=== PATIENT | female | born 1960 | race Caucasian/White ===

== ENCOUNTER 2020-01-24 11:41 | Emergency (ER) | payer OTHER, SELFPAY ==
--- NOTE | ~2020-01-24 | CT_ITS ---
EXAMINATION: CT abdomen pelvis wo con DATE: 01/24/2020 13:13 INDICATION: Right flank pain. Frequent urinary tract infections. TECHNIQUE: Computed tomography (CT) of the abdomen and pelvis was performed without intravenous contr ast. Automated exposure control and iterative reconstruction technique were employed. Exam dose: 165 .01 mGy-cm total exam DLP. COMPARISON: None. FINDINGS: There is an approximately 3 mm probable distal right ureteral calculus. There is minimal if any left or right hydroureteronephrosis. No other urinary tract calculus is evident. The urinary seven dder is unremarkable. The liver, bile ducts, gallbladder, pancreas, pancreatic duct, spleen, and adrenal glands and kidneys are otherwise unremarkable on this limited noncontrast examination. Normal caliber of the abdominal aorta. No intraperitoneal or retroperitoneal or pelvic mass lesion or adenopathy or ascites. Normal appendix. There is a prominent of fecal material within the colon but no bowel obstruction. There are numerous diverticula of the sigmoid colon. There is minimal pericolic fat stranding in the mid sigmoid colon a erick; minimal focal diverticulitis of the sigmoid colon in the mid pelvic area is not excluded. No int raperitoneal free air or abscess. Bilateral breast implants are noted. Normal heart size. No pericardial or pleural effusion. The lung bases are clear of infiltrate or cons olidation. Severe degenerative disc disease at L5-S1 with mild retrolisthesis. No suspicious osteolytic or osteoblastic lesions are noted. IMPRESSION: Suspected 3 mm distal right ureteral calculus Possible mild mid sigmoid diverticulitis Normal appendix Reviewed, dictated and finalized at [facility]. Reviewed, dictated and finalized at [facility].
--- NOTE | ~2020-01-24 | XR_ITS ---
XR abdomen/kub 1V DATE: 01/24/2020 13:19 INDICATION: Right flank pain. Frequent urinary tract infections. TECHNIQUE: AP projection, 2 views, COMPARISON: 01/24/[address] abdomen pelvis FINDINGS: There are multiple bilateral pelvic calcifications, most of which are calcified pelvic phle boliths. Cannot exclude a small distal right ureteral calcified calculus versus phlebolith. Consider intravenous contrast material injection with follow-up KUB examinations for differentiation, should m ore definitive evaluation be required clinically. No evidence of bowel obstruction. The psoas shadows are intact. No visceromegaly. The lung bases are clear. IMPRESSION: Bilateral pelvic calcifications; distal right ureteral calcified stone versus phlebolith. Consider administration of IV contrast material with exposure of subsequent plain radiographs and if necessary repeat CT abdomen pelvis examination as clinically required Reviewed, dictated and finalized at [facility]. Reviewed, dictated and finalized at [facility]. IMPRESSION: Bilateral pelvic calcifications; distal right ureteral calcified st one versus phlebolith. Consider administration of IV contrast material with exposure of subsequent ovidio in radiographs and if necessary repeat CT abdomen pelvis examination as clinica lly required
--- NOTE | ~2020-01-24 | XR_ITS ---
XR abdomen w oblique DATE: 01/24/2020 14:23 INDICATION: Right flank pain. Frequent urinary tract infections. TECHNIQUE: AP and bilateral oblique views of the abdomen following intravenous injection of contrast material for CT abdomen pelvis examination COMPARISON: 01/24/[address] abdomen pelvis examinations 01/24/2020 KUB FINDINGS: No urinary tract calculus or hydroureteronephrosis is evident. There are multiple bilateral calcified pelvic phleboliths. No abnormal filling defect of the renal collecting systems, ureters or urinary bladder is evident. IMPRESSION: No urinary tract calculus or hydroureteronephrosis Reviewed, dictated and finalized at [facility]. Reviewed, dictated and finalized at [facility].
--- NOTE | ~2020-01-24 | CT_ITS ---
EXAMINATION: CT abdomen pelvis w con DATE: 01/24/2020 14:21 INDICATION: Frequent urinary tract infections. Right flank pain. TECHNIQUE: Computed tomography (CT) of the abdomen and pelvis was performed with 100 cc Omnipaque 350 intravenous contrast. Automated exposure control and iterative reconstruction technique were employe d. Exam dose: 185.61 mGy-cm total exam DLP. COMPARISON: 01/24/[address] abdomen pelvis 01/24/2020 KUB FINDINGS: The previously reported small calcification in the right pelvis lies outside the ureter and urinary bladder, consistent with calcified phlebolith. No urinary tract stones or urinary tract obst ruction or hydroureteronephrosis. There is mild pericolic fat stranding in the mid sigmoid area suggesting mild uncomplicated diverticu litis. IMPRESSION: Mid sigmoid mild diverticulitis, without evidence of abscess or intraperitoneal free air No urinary tract calculus or hydroureteronephrosis Reviewed, dictated and finalized at [facility]. Reviewed, dictated and finalized at [facility]. IMPRESSION: Mid sigmoid mild diverticulitis, without evidence of abscess or in traperitoneal free air No urinary tract calculus or hydroureteronephrosis
[2020-01-24 11:44] VITALS: BP 128/62; PULSE 85; RESP 16; TEMP 36.8; O2SAT 100
[2020-01-24 12:27] LABS: Basophils Percent Auto 0.4 % (0.2-1.2); Eosinophils Absolute Auto 0.1 K/mm3 (0-0.3); Eosinophils Percent Auto 1.3 % (0-4.4); Hematocrit 44.3 % (37.0-47.0); Hemoglobin 14.7 g/dL (12.0-15.0); Immature Granulocyte Absolute 0.02 K/mm3 (0.00-0.031); Immature Granulocyte Percent A 0.2 % (0-0.5); Lymphocytes Absolute Auto 3.55 K/mm3 (0.9-3.2); Lymphocytes Percent Auto 34.7 % (18.3-44.2); Mean Corpuscular HGB Conc 33.2 g/dl (32-36); Mean Corpuscular Hemoglobin 30.6 pg (26-34); Mean Corpuscular Volume 92.3 fl (80-100); Mean Platelet Volume 11.2 fl (7.4-10.4); Monocytes Percent Auto 9.3 % (2.6-8.5); Neutrophils Absolute Auto 5.6 K/mm3 (1.3-6.7); Neutrophils Percent Auto 54.1 % (45.5-73.1); Platelet Count Result 277 k/mm3 (150-375); Red Cell Distribution Width 12.4 % (11.5-14.5); White Blood Count 10.2 K/mm3 (4.5-10.0)
[2020-01-24 12:33] LABS: Add Urine Microscopic? YES; Appearance Urine Cloudy (Clear); Bacteria Urine Trace /hpf; Bilirubin Urine Negative (Negative); Blood Urine 2+ (Negative); Color Urine Yellow (Yellow); Glucose Urine UA Negative (Negative); Ketones Urine 1+ mg/dL (Negative); Leukocyte Esterase Ur Negative LEU/UL (Negative); Mucus Urine Moderate /lpf; Nitrate Urine Negative (Negative); Protein Urine 1+ mg/dL (Negative); RBC Urine 21-50 /hpf (0-2); Specific Grav Ur 1.033 (1.001-1.035); Squamous Epithelial Cell Urine Many /hpf (Few); WBC Urine 0-3 /hpf
[2020-01-24] MEDS: SODIUM CHLORIDE 0.9% IV 1,000 ML 999 ML IV CONT ×2 (12:33→14:44)
--- NOTE | 2020-01-24 12:37 | ED.ABDPAIN ---
HPI - Abdominal Pain General Chief Complaint: Urogenital-Female Stated Complaint: frequent recurring UTIs Time Seen by Provider: 01/24/20 11:50 Source: patient Mode of arrival: ambulatory Limitations: no limitations History of Present Illness HPI narrative: Patient is a 59-year-old female that presents with low back pain and burning with urination has had this recurrent problem for the last month seen gynecology took nitrofurantoin had interval improvement but symptoms have returned over the last several days. Patient denies vaginal bleeding discharge issues with bowel movements or any fever chills nausea vomiting. Presents per private vehicle in no distress. Pain is worse with activity and movement Related Data Home Medications Medication Instructions Recorded Confirmed No Home Medications 01/24/20 01/24/20 Allergies Allergy/AdvReac Type Severity Reaction Status Date / Time meperidine [From Demerol] Allergy Swelling Verified 01/24/20 12:05 Review of Systems Review of Systems: All systems reviewed & are unremarkable except as noted in HPI and below PMFSH Social History Social History Smoking status: Current every day smoker Gender identity (if verbalized by the patient): Female Exam Narrative: Exam Narrative: GENERAL: Well-appearing, well-nourished, and in no acute distress. HEAD: Normocephalic, atraumatic. EYES: PERRLA and EOMI. ENT: Nares clear, no rhinorrhea or epistaxis. Mucous membranes moist. CHEST: Clear to auscultation. No respiratory distress. No wheezes rales or rhonchi HEART: Regular rate and rhythm. No murmur heard. Normal peripheral pulses. ABDOMEN: Soft, nontender, nondistended EXTREMITIES: Normal range of motion. No edema. SKIN: Warm, dry, no rash. NEURO: No focal deficits. Alert and oriented x3. PSYCH: Normal mood and affect. Course Course Emergency Course: Patient in the room in no distress aware of case findings treatment plan diagnosis results of the imaging patient resting comfortably at this time in no distress patient provided with reasons to return. Discussion was made with radiologist given the findings and recommended that the patient have imaging with contrast was done found to have diverticulitis Vital Signs Vital signs: Vital Signs Temperature 98.3 F 01/24/20 11:44 Pulse Rate 85 01/24/20 11:44 Respiratory Rate 16 01/24/20 11:44 Blood Pressure 128/62 01/24/20 11:44 Pulse Oximetry 100 01/24/20 11:44 Temperature 98.3 F 01/24/20 11:44 Pulse Rate 85 01/24/20 11:44 Respiratory Rate 16 01/24/20 11:44 Blood Pressure 128/62 01/24/20 11:44 Pulse Oximetry 100 01/24/20 11:44 MDM - Abdominal Pain MDM Narrative Medical decision making narrative: Patient found to have diverticulitis in the room afebrile nontoxic-appearing no distress felt appropriate for outpatient reevaluation and agreeing to follow-up as directed with GI and primary care. Patient without high risk changes in the blood work or imaging otherwise and agreeing to return if symptoms worsen Lab Data Result diagrams: 01/24/20 12:21 01/24/20 12:21 Labs: Lab Results 01/24/20 01/24/20 01/24/20 Range/Units 12:21 12:21 12:22 WBC 10.2 H (4.5-10.0) K/mm3 RBC 4.80 (4.2-5.4) M/mm3 Hgb 14.7 (12.0-15.0) g/dL Hct 44.3 (37.0-47.0) % MCV 92.3 (80-100) fl MCH 30.6 (26-34) pg MCHC 33.2 (32-36) g/dl RDW 12.4 (11.5-14.5) % Plt Count 277 (150-375) k/mm3 MPV 11.2 H (7.4-10.4) fl Immature Gran % (Auto) 0.2 (0-0.5) % Neut % (Auto) 54.1 (45.5-73.1) % Lymph % (Auto) 34.7 (18.3-44.2) % Hendricks % (Auto) 9.3 H (2.6-8.5) % Eos % (Auto) 1.3 (0-4.4) % Baso % (Auto) 0.4 (0.2-1.2) % Lymph # (Auto) 3.55 H (0.9-3.2) K/mm3 Hendricks # (Auto) 1.0 H (0.1-0.6) K/mm3 Eos # (Auto) 0.1 (0-0.3) K/mm3 Baso # (Auto) 0.0 (0.0-0.1) K/mm3
--- NOTE | 2020-01-24 13:40 | PC.NURSE ---
Green top being redrawn for hemolization per request of lab.
[2020-01-24 13:49] VITALS: BP 125/79; PULSE 76; RESP 16
[2020-01-24 13:56] LABS: Alanine Aminotransferase 14 U/L (4-35); Albumin Level 4.1 g/dL (3.5-5.1); Alkaline Phosphatase 72 U/L (38-126); Aspartate Amino Transferase 22 U/L (14-36); Bilirubin,Total 0.4 mg/dL (0.2-1.3); Blood Urea Nitrogen 13 mg/dL (7-17); Calcium 8.9 mg/dL (8.4-10.2); Carbon Dioxide 23 mmol/L (22-30); Chloride 109 mmol/L (98-107); Estimated CRCL calculation 71 ml/min; Estimated Glomerular Filt Rate > 60; Glucose 75 mg/dL (65-105); Potassium 3.7 mmol/L (3.4-5.0); Sodium 138 mmol/L (137-145)
[2020-01-24 14:04] LABS: Estimated CRCL calculation 83 ml/min; Estimated Glomerular Filt Rate > 60
[2020-01-24 14:40] VITALS: BP 137/74; PULSE 77; RESP 16; O2SAT 100
[2020-01-24 15:25] VITALS: BP 144/94; PULSE 74; RESP 18; O2SAT 100
== END 2020-01-24 15:32 | disposition home or self-care (01) ==
PROVIDERS: Emergency Medicine Emergency Medical Services; Emergency Provider Emergency Medicine; PCP Advanced Practice Midwife
DX: K57.32 Diverticulitis of large intestine without perforation or abscess without bleeding (principal); F17.200 Nicotine dependence, unspecified, uncomplicated
CPT/HCPCS: 36415; 74018; 74021; 74176; 74177; 74178; 80053; 81001; 85025; 96361; 96365; 99284; J0131; J7030; Q9967

== ENCOUNTER 2020-02-06 14:51 | Observation (INO) | payer OTHER, SELFPAY ==
--- NOTE | ~2020-02-06 | CT_ITS ---
EXAMINATION: CT abdomen pelvis w con EXAM DATE: 02/06/2020 16:42 INDICATION: Low abdominal pain, recent history of diverticulitis. TECHNIQUE: Spiral CT of the abdomen and pelvis was performed following intravenous injection of 100 m L Omnipaque 350. Axial, coronal and sagittal images were reviewed. The dose-length product (DLP) fo r this examination was 198.59 mGy-cm. The exposure was tailored according to patient size (auto mA e xposure control), and iterative reconstruction (ASIR) was used as additional dose reduction technique . Comparison is made to prior examination from 01/24/2020. FINDINGS: There is occlusive thrombus within the portal vein left lateral segment with geographic sha ped decreased attenuation involving most of this segment indicating less perfusion. There is nonocclu sive filling defect within a segmental branch of the right portal vein with similar decreased enhance ment, perfusion of this segment. See axial images 44, 34. No other filling defects within the portal venous system. There is descending colonic wall edema. Given the portal venous findings, would consider both ischemi c and infectious etiologies, but no thrombus identified in vessels supplying this segment. Pancreas, spleen, adrenal glands are unremarkable. There is no pneumatosis. Gallbladder is unremarka ble. No biliary obstruction. Kidneys enhance symmetrically. There is no hydronephrosis. The uter us is not identified and has likely been surgically resected. The bladder is unremarkable. There is no retroperitoneal or pelvic lymphadenopathy. The appendix is normal. The stomach and small bowel are unremarkable. There is moderate sigmoid colo leroy diverticulosis. There is no adjacent inflammatory change to suggest diverticulitis. No free int raperitoneal gas. The heart is normal in size. There are no pericardial or pleural effusions. The lung bases are unremarkable. There are no osteoblastic or osteolytic lesions identified. There is s ubacute or chronic mild compression fracture of the L5 vertebral body. Compared to prior study, colitis and segmental portal venous thrombosis are new. Previously seen sigm oid diverticulitis has resolved. IMPRESSION: 1. Descending colonic colitis, consider infectious and ischemic etiologies. 2. Two regions of segmental portal venous thrombosis. Reviewed, dictated and finalized at [facility].
[2020-02-06 14:53] VITALS: BP 100/80; PULSE 61; RESP 18; TEMP 36.2; O2SAT 100
[2020-02-06 15:43] LABS: Basophils Percent Auto 0.3 % (0.2-1.2); Eosinophils Absolute Auto 0.2 K/mm3 (0-0.3); Eosinophils Percent Auto 1.4 % (0-4.4); Hematocrit 40.6 % (37.0-47.0); Hemoglobin 13.7 g/dL (12.0-15.0); Immature Granulocyte Absolute 0.03 K/mm3 (0.00-0.031); Immature Granulocyte Percent A 0.2 % (0-0.5); Lymphocytes Absolute Auto 4.04 K/mm3 (0.9-3.2); Lymphocytes Percent Auto 32.7 % (18.3-44.2); Mean Corpuscular HGB Conc 33.7 g/dl (32-36); Mean Corpuscular Volume 91.9 fl (80-100); Mean Platelet Volume 10.3 fl (7.4-10.4); Monocytes Absolute Auto 0.9 K/mm3 (0.1-0.6); Monocytes Percent Auto 7.4 % (2.6-8.5); Neutrophils Absolute Auto 7.2 K/mm3 (1.3-6.7); Platelet Count Result 285 k/mm3 (150-375); Red Blood Count 4.42 M/mm3 (4.2-5.4); Red Cell Distribution Width 12.5 % (11.5-14.5); White Blood Count 12.4 K/mm3 (4.5-10.0)
[2020-02-06 15:46] LABS: Add Urine Microscopic? YES; Appearance Urine Clear (Clear); Bacteria Urine Trace /hpf; Bilirubin Urine Negative (Negative); Blood Urine 1+ (Negative); Color Urine Yellow (Yellow); Glucose Urine UA Negative (Negative); Ketones Urine Trace mg/dL (Negative); Leukocyte Esterase Ur 1+ LEU/UL (Negative); Mucus Urine Rare /lpf; Nitrate Urine Negative (Negative); Protein Urine 2+ mg/dL (Negative); Specific Grav Ur 1.027 (1.001-1.035); Squamous Epithelial Cell Urine Moderate /hpf (Few); WBC Urine 16-20 /hpf
[2020-02-06 15:56] LABS: Alanine Aminotransferase 18 U/L (4-35); Albumin Level 4.3 g/dL (3.5-5.1); Alkaline Phosphatase 67 U/L (38-126); Aspartate Amino Transferase 25 U/L (14-36); Bilirubin,Total 0.3 mg/dL (0.2-1.3); Blood Urea Nitrogen 18 mg/dL (7-17); Calcium 9.7 mg/dL (8.4-10.2); Carbon Dioxide 26 mmol/L (22-30); Chloride 106 mmol/L (98-107); Estimated CRCL calculation 60 ml/min; Estimated Glomerular Filt Rate > 60; Glucose 121 mg/dL (65-105); Lipase 111 U/L (23-300); Potassium 3.7 mmol/L (3.4-5.0); Sodium 137 mmol/L (137-145)
--- NOTE | 2020-02-06 16:09 | ED.ABDPAIN ---
HPI - Abdominal Pain General Chief Complaint: Abdominal Pain Stated Complaint: abd pain Time Seen by Provider: 02/06/20 14:56 Source: RN notes reviewed History of Present Illness HPI narrative: Patient presents emergency department from home for abdominal pain. Patient states pain began yesterday in the lower abdomen described as sharp and stabbing in nature and does not radiate. Patient's does state she has associated nausea denies any fevers or chills vomiting diarrhea or any other symptoms. States she was diagnosed with diverticulitis earlier this month and feels similar states she took all antibiotics as prescribed and had improved prior till yesterday Related Data Allergies Allergy/AdvReac Type Severity Reaction Status Date / Time meperidine [From Demerol] Allergy Swelling Verified 02/06/20 14:59 Review of Systems Review of Systems: Narrative: Gen.: Denies fevers or chills ENT: Denies congestion Respiratory: Denies shortness of breath or cough CV: Denies chest pain or palpitations GI: See HPI denies burning, urgency, frequency or hematuria Musculoskeletal: Denies back pain or muscle pain Neuro: Denies numbness, tingling, weakness or focal weakness Skin: Denies rash Except as documented, all other systems reviewed and negative PMFSH Past Medical History Medical History (Updated 02/06/20 @ 18:20 by Stan Murdock DO) Diverticulitis Social History Social History Smoking status: Current every day smoker Gender identity (if verbalized by the patient): Female Exam Narrative: Exam Narrative: APPEARANCE: No acute distress, nontoxic, resting in bed HEENT: Normocephalic, atraumatic, OMM RESPIRATORY: No respiratory distress, clear to auscultation bilaterally with no rhonchi wheezing or rales CARDIOVASCULAR: RRR s murmur ABDOMINAL: Soft, nondistended tender to palpation right lower quadrant left lower quadrant, no tenderness right upper quadrant left upper quadrant, no rebound or guarding MUSCULOSKELETAl: Moves all extremities. No clubbing, cyanosis or edema. NEURO: Awake and alert. Following commands, speech normal, no focal deficits SKIN:: Warm, dry. Normal Color PSYCHIATRIC: Normal affect/mood Course Course Emergency Course: Reviewed old records Discussed with Dr. Gege Gerardo presentation work-up agrees with consult agrees with plan for Zosyn and anticoagulation Discussed with HECTOR Osborn for Dr. Pizarro presentation work-up. Agrees with admission at this time with patient start on Lovenox Discussed with patient and family results of workup and diagnosis. Discussed need for admission. Patient and family understand and agree to current treatment plan Vital Signs Vital signs: Vital Signs Temperature 97.2 F L 02/06/20 14:53 Pulse Rate 61 02/06/20 14:53 Respiratory Rate 18 02/06/20 14:53 Blood Pressure 100/80 02/06/20 14:53 Pulse Oximetry 100 02/06/20 14:53 Temperature 97.2 F L 02/06/20 14:53 Pulse Rate 60 02/06/20 17:53 Respiratory Rate 15 02/06/20 17:53 Blood Pressure 107/63 02/06/20 17:53 Pulse Oximetry 100 02/06/20 17:53 MDM - Abdominal Pain Lab Data Result diagrams: 02/06/20 15:38 02/06/20 15:38 Labs: Lab Results 02/06/20 02/06/20 02/06/20 Range/Units 15:36 15:38 15:38 WBC 12.4 H (4.5-10.0) K/mm3 RBC 4.42 (4.2-5.4) M/mm3 Hgb 13.7 (12.0-15.0) g/dL Hct 40.6 (37.0-47.0) % MCV 91.9 (80-100) fl MCH 31.0 (26-34) pg MCHC 33.7 (32-36) g/dl RDW 12.5 (11.5-14.5) % Plt Count 285 (150-375) k/mm3 MPV 10.3 (7.4-10.4) fl Immature Gran % (Auto) 0.2 (0-0.5) % Neut % (Auto) 58.0 (45.5-73.1) % Lymph % (Auto) 32.7 (18.3-44.2) % Bennett % (Auto) 7.4 (2.6-8.5) % Eos % (Auto) 1.4 (0-4.4) % Baso % (Auto) 0.3 (0.2-1.2) % Lymph # (Auto) 4.04 H (0.9-3.2) K/mm3 Bennett # (Auto) 0.9 H (0.1-0.6) K/mm3 Eos
[2020-02-06] MEDS: SODIUM CHLORIDE 0.9% IV 1,000 ML 999 ML IV CONT (16:49)
[2020-02-06 17:47] LABS: INR 0.9; Prothrombin Time 11.9 Seconds (11.1-14.7)
[2020-02-06 17:48] LABS: Partial Thromboplastin Time 29.2 SECONDS (22.3-36.8)
[2020-02-06 17:53] VITALS: BP 107/63; PULSE 60; RESP 15; O2SAT 100
[2020-02-06] MEDS: ENOXAPARIN 80 MG/0.8 ML SYRINGE 50 MG SUB-Q (18:14)
--- NOTE | 2020-02-06 18:45 | PC.NURSE ---
This patient, Bekah Dimas, was admitted to [facility] Surg Room 311-01. Patient/family oriented to hospital policies and general routines including ID bracelet, bed and alarms, visiting hours, pain management, procedures, bathroom and other care routines, personal items, smoking policy, room service/diet, and visiting hours. Valuables list has been completed. Information on how to activate the Rapid Response Team has been discussed. Patient/Family are encouraged to report perceived risks to care and to ask questions if they do not understand what they are told or what they should do.
[2020-02-06 18:50] VITALS: BP 98/48; PULSE 66; RESP 16; TEMP 36.6; O2SAT 100
[2020-02-06 19:20] VITALS: BMI 20.1
[2020-02-06] MEDS: SODIUM CHLORIDE 0.9% IV 1,000 ML 125 ML IV CONT (19:27)
[2020-02-06 20:00] VITALS: PULSE 58
--- NOTE | 2020-02-06 20:41 | PM.IMHP ---
H&P: HPI History of Present Illness Chief complaint: Colitis, portal venous thrombosis Narrative: This is a pleasant 59 year old female who is known to work at a [employer] and a chronic smoker who recently quit and returned to the hospital with a complaint of lower abdominal pain and bloody diarrhea that started today. The patient was recently seen in our ER on 01/24/2020 and diagnosed with mild diverticulitis. She was sent home with cipro and flagyl and completed her courses of antibiotics three days ago. She reports that she had improvement of her symptoms although she started to have abdominal pain return yesterday and today it became unbearable. Associated symptoms include nausea but she denies any fever, chills, chest pain, shortness of breath, coughing, dysuria, hematuria, or vomiting. The patient was evaluated in the ER today and CT abd/pelvis demonstrated descending colonic colitis as well as two regions of segmental portal venous thrombosis. The patient was initiated on Zosyn IV and was anticoagulated w/ therapeutic Lovenox. She has been admitted to the medical floor for further care. No other complaints. Review of Systems Review of Systems: All systems reviewed & are unremarkable except as noted in HPI and below PMFSH Past Medical History Medical History Diverticulitis Lower abdominal pain Surgical History Surgical History History of section, classical History of tubal ligation Family History Family History Grandparent Diabetes mellitus S/P CABG (coronary artery bypass graft) Hypertension Social History Social History Smoking status: Current every day smoker Alcohol intake: unknown Substance use: unknown Gender identity (if verbalized by the patient): Female Spiritual care concerns: No Meds Home Medications and Allergies Home Medications Medication Instructions Recorded Confirmed Type Saccharomyces boulardii [Florastor] 250 mg PO BID #14 cap 02/09/20 Rx ciprofloxacin HCl [Cipro] 500 mg PO Q12H 3 Days #6 tablet 02/09/20 Rx metronidazole [Flagyl] 500 mg PO Q8H 3 Days #9 tablet 02/09/20 Rx nicotine [Nicoderm CQ] 1 patch TRANSDERMAL QAM Days 02/09/20 Rx #28 each rivaroxaban [Xarelto] See Rx Instructions .ROUTE 02/09/20 Rx .COMPLEX #51 each Allergies Allergy/AdvReac Type Severity Reaction Status Date / Time meperidine [From Demerol] Allergy Intermediate Swelling Verified 02/06/20 22:57 Vital Signs Vital Signs - 24 hr 02/06/20 14:53 02/06/20 17:53 02/06/20 18:50 Temperature 36.2 C L 36.6 C Pulse Rate 61 60 66 Respiratory Rate 18 15 16 Blood Pressure 100/80 107/63 98/48 L Pulse Oximetry 100 100 100 Exam Const: General: cooperative, no acute distress, alert and awake Nutritional Appearance: well nourished Orientation/consciousness: patient oriented x3 HENMT: Head: normal to inspection General nose exam: Normal external nose present Face and sinus: normal facial exam Mouth: Yes Normal oral and palatal mucosa present and Yes oropharynx normal Eyes: Pupils: Equal, round and reactive pupils present EOM: EOMs intact bilaterally Neck: Neck: supple and no JVD Thyroid: thyroid normal Lymphatic: lymphadenopathy not noted Resp: Effort & Inspection: normal respiratory effort Auscultation: clear to auscultation bilaterally Cardio: Rate: regular rate Rhythm: regular rhythm Heart sounds: no murmurs GI: Inspection: normal to inspection GI Palp: Yes abdominal tenderness (Lower abd b/l ++ ), No Guarding due to palpation present (GI), No Rigid due to palpation, No Hepatomegaly present and No Splenomegaly present Auscultation: normal bowel sounds Skin: General skin exam: normal color and no rashes or lesions noted Neuro: General: patient
[2020-02-06] MEDS: NICOTINE (*PBKC) 21 MG PATCH 1 PATCH TRANSDERM (21:11)
[2020-02-06] MEDS: DICYCLOMINE HCL INJ 20 MG/2 ML VIAL IM (21:12)
[2020-02-06 22:00] VITALS: BP 102/56; PULSE 62; RESP 16; TEMP 36.5; O2SAT 99
[2020-02-07] VITALS (9 sets, daily range): BP systolic 112–130; BP diastolic 58–69; PULSE 62–72; RESP 14–16; TEMP 36.6–37; O2SAT 96–99
[2020-02-07] MEDS: MORPHINE SULFATE 2 MG/ML INJ IV PUSH (01:01)
--- NOTE | 2020-02-07 01:14 | PC.NURSE ---
Patient c/o nausea. Emesis x's 2. notified. Orders received.
[2020-02-07] MEDS: ONDANSETRON INJ 4 MG/2 ML VIAL IV PUSH (01:23)
--- NOTE | 2020-02-07 03:50 | ECG_ITS ---
Measurements Intervals Holmen Rate: 62 P: 23 AL: 145 QRS: 84 QRSD: 90 T: 47 QT: 430 QTc: 438 Interpretive Statements SINUS RHYTHM NORMAL ECG Electronically Signed On 02-07-2020 7:28:47 CDT by Shawn Yi D.O.
[2020-02-07] MEDS: SODIUM CHLORIDE 0.9% IV 1,000 ML 125 ML IV CONT (05:50)
[2020-02-07 06:26] LABS: Basophils Percent Auto 0.3 % (0.2-1.2); Eosinophils Percent Auto 0.2 % (0-4.4); Hematocrit 38.4 % (37.0-47.0); Hemoglobin 12.6 g/dL (12.0-15.0); Immature Granulocyte Absolute 0.04 K/mm3 (0.00-0.031); Immature Granulocyte Percent A 0.3 % (0-0.5); Lymphocytes Absolute Auto 2.52 K/mm3 (0.9-3.2); Lymphocytes Percent Auto 20.2 % (18.3-44.2); Mean Corpuscular HGB Conc 32.8 g/dl (32-36); Mean Corpuscular Hemoglobin 30.1 pg (26-34); Mean Corpuscular Volume 91.9 fl (80-100); Mean Platelet Volume 10.8 fl (7.4-10.4); Monocytes Absolute Auto 1.1 K/mm3 (0.1-0.6); Monocytes Percent Auto 8.4 % (2.6-8.5); Neutrophils Absolute Auto 8.8 K/mm3 (1.3-6.7); Neutrophils Percent Auto 70.6 % (45.5-73.1); Platelet Count Result 278 k/mm3 (150-375); Red Blood Count 4.18 M/mm3 (4.2-5.4); Red Cell Distribution Width 12.5 % (11.5-14.5); White Blood Count 12.5 K/mm3 (4.5-10.0)
[2020-02-07 06:42] LABS: Alanine Aminotransferase 21 U/L (4-35); Albumin Level 3.6 g/dL (3.5-5.1); Alkaline Phosphatase 57 U/L (38-126); Aspartate Amino Transferase 28 U/L (14-36); Bilirubin,Total 0.4 mg/dL (0.2-1.3); Blood Urea Nitrogen 12 mg/dL (7-17); Calcium 8.6 mg/dL (8.4-10.2); Carbon Dioxide 23 mmol/L (22-30); Chloride 111 mmol/L (98-107); Estimated CRCL calculation 69 ml/min; Estimated Glomerular Filt Rate > 60; Glucose 109 mg/dL (65-105); Potassium 3.7 mmol/L (3.4-5.0); Sodium 138 mmol/L (137-145)
[2020-02-07] MEDS: ENOXAPARIN 60 MG/0.6 ML SYRINGE 50 MG SUB-Q ×2 (08:48→20:07)
[2020-02-07] MEDS: NICOTINE (*PBKC) 21 MG PATCH 1 PATCH TRANSDERM (08:48)
--- NOTE | 2020-02-07 09:01 | PM.IMPN ---
Progress Note: A&P Assessment and Plan (1) Colitis: Code(s): K52.9 - Noninfective gastroenteritis and colitis, unspecified Status: Acute Assessment and Plan: Patient appears to be clinically improving; still NPO. Dr. Huntley has been consulted for further input; appreciate recommendations continue IV zosyn, Bowel rest; will defer advancement to GI IV fluid hydration. Pain control as needed Monitor symptoms Await further recs from GI (2) Portal vein thrombosis: Code(s): I81 - Portal vein thrombosis Status: Acute Assessment and Plan: As of now, likely related to inflammatory vs ischemic colitis. Patient has no history of IBD, contraceptive use, blood disorders, malignancy, or Lupus. Continue anticoagulation w/SC Lovenox. If there are any signs or symptoms of reduced blood flow we will consider transfer to a hopsital with vascular surgery. 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 She is not interested in coumadin. Will do baires check on Xarelto vs Eliquis; consider starting treatment prior to discharge vs at discharge Monitor H&H and signs of bleeding (3) Abnormal urinalysis: Code(s): R82.90 - Unspecified abnormal findings in urine Status: Acute Assessment and Plan: UA suggestive of UTI; patient not noting any symptoms today Currently on Zosyn for #1 Await UCx to return; tailor antibiotics to culture if applicable Monitor (4) Tobacco dependence: Code(s): F17.200 - Nicotine dependence, unspecified, uncomplicated Status: Acute Assessment and Plan: Encourage smoking cessation Nicotine patch as needed for now Subjective Date/time seen: 02/07/20 09:01 Interval history: Patient is a 59 yo F smoker with recent history of diverticulitis with treatment earlier this month who is here for evaluation of CT findings suggestive of colitis and portal venous thrombosis. Patient states she feels better today; less pain today. She noted blood in stool yesterday, but no BMs yet today. Upon questioning, she denies history of blood disorders, IBD, use of contraceptives, Lupus, or any history of malignancy; she does not know much family history other than hypertension and some cancers she is not sure on details. She states when she has lower abdominal pain, it is all across her lower abdomen; she then gets sweats and then chills. No other complaints at this moment. Denies cp/palpitations, sob/cough, dysuria, hematuria, cloudy urine, calf pain/swelling. Review of Systems Review of Systems: All systems reviewed & are unremarkable except as noted in HPI and below Exam Narrative: Exam Narrative: Patient lying supine in bed at time of visit; nursing in room as well Const: General: cooperative, comfortable, no acute distress, well developed, alert and awake Nutritional Appearance: well nourished Orientation/consciousness: patient oriented x3 HENMT: Head: normocephalic and atraumatic General nose exam: Normal nares present Face and sinus: face symmetric Mouth: Yes Normal oral and palatal mucosa present (No lesions noted), Yes oropharynx normal and Yes moist mucous membranes Teeth and gingiva: dentures Eyes: General: appearance normal, both eyes and all related structures EOM: EOMs intact bilaterally Neck: Neck: trachea midline and supple Resp: Effort & Inspection: normal respiratory effort Auscultation: clear to auscultation bilaterally Cardio: Rate: regular rate Rhythm: regular rhythm Heart sounds: no murmurs GI: Inspection: non-distended and no obesity GI Palp: Yes abdominal tenderness (Mainly in lower abdomen, epigastric regions) and Yes Soft to palpation Auscultation: normal bowel sounds and Hypoactive bowel sounds present Skin: General skin exam: nor
[2020-02-07] MEDS: DICYCLOMINE HCL 10 MG CAPSULE 20 MG PO ×2 (12:53→19:24)
--- NOTE | 2020-02-07 13:53 | WPDGICN ---
Assessment and Plan Assessment and plan (1) Colitis: Code(s): K52.9 - Noninfective gastroenteritis and colitis, unspecified Status: Acute Assessment and Plan: differential could be ischemic, infectious she is feeling better, ok to start liquid diet as tolerated (she is hungry) continue with supportive care, antibiotics if more diarrhea then check stool studies (2) Portal vein thrombosis: Code(s): I81 - Portal vein thrombosis Status: Acute Assessment and Plan: probably triggered but acute colon infection- no other risk factors (liver disease, use of hormones, previous history or surgeries, etc) continue with AC, probably will need 3-6 months with repeat of doppler to confirm resolution of PVT also will be a good idea to repeat another colonoscoy in about 6 months after she is off anticoagulants (she had one about 1 year ago- will get records) (3) Diverticulitis: Code(s): K57.92 - Diverticulitis of intestine, part unspecified, without perforation or abscess without bleeding Status: Acute Assessment and Plan: treated recently (4) Lower abdominal pain: Code(s): R10.30 - Lower abdominal pain, unspecified Status: Acute GI Consult Note Consult date/time: 02/07/20 13:53 Reason for consult: colitis, portal vein thrombosis HPI: Bekah Dimas is a 59 year old female former smoker and no other chronic medical conditions other than recent visit to ER 01/23 with abdominal pain and new diagnosis of mild diverticulitis that was treated as outpatient with antibiotics (cipro and flagyl), she had improvement in symptoms but yesterday had severe pain in lower abdomen, nausea with bloody diarrhea. She came back to the ER and CT abd/pelvis demonstrated descending colonic colitis as well as two regions of segmental portal venous thrombosis. The patient was initiated on Zosyn IV and was anticoagulated w/ therapeutic Lovenox and admitted to the hospital. She denies previous blood clots, no surgeries, she is not using hormones or other meds and is quite healthy. She had a colonoscopy about 1 year ago at [facility] for routine, denies history of cancer. Review of Systems Constitutional: Constitutional: Denies headache(s) and Denies weakness Eyes: Eyes: Denies blurry vision ENT: Reports Normal hearing present, Denies headache(s) and Denies neck pain Cardiovascular: Cardiovascular: Denies chest pain and Denies dyspnea Respiratory: Respiratory: Denies dyspnea Gastrointestinal: Gastrointestinal: Reports no additional gastrointestinal complaints Genitourinary: Genitourinary: Denies dysuria Musculoskeletal: Musculoskeletal: Denies neck pain Integumentary/Breasts: Skin/Breast: Denies dry skin Neurologic: Reports Normal hearing present, Denies headache(s) and Denies weakness Psychiatric: Psychiatric: Denies anxiety Endocrine: Endocrine: Denies change in body appearance Hematologic/Lymphatic: Hematologic/Lymphatic: Denies easy bleeding Allergic/Immunologic: Allergic/Immunologic: Denies urticaria PMFSH Past Medical History Medical History (Updated 02/07/20 @ 14:00 by Herman Huntley MD) Diverticulitis Lower abdominal pain Surgical History Surgical History (Updated 02/06/20 @ 20:56 by Ortiz De La Rosa MD) History of section, classical History of tubal ligation Social History Social History Smoking status: Current every day smoker Alcohol intake: unknown Substance use: unknown Gender identity (if verbalized by the patient): Female Spiritual care concerns: No Meds Home Medications and Allergies Home Medications Medication Instructions Recorded Confirmed Type No Home Medications 02/07/20 02/07/20 History Allergies Allergy/AdvReac Type Severity Reaction Status Date / Time meperidine [From Demerol] Allergy Intermediate Swelling Verified 02/06/20 22:57 Vital Signs
[2020-02-07] MEDS: SODIUM CHLORIDE 0.9% IV 1,000 ML 50 ML IV CONT (23:14)
[2020-02-08] VITALS (8 sets, daily range): BP systolic 119–127; BP diastolic 61–77; PULSE 54–74; RESP 16–18; TEMP 36.4–36.9; O2SAT 97–99
[2020-02-08] MEDS: DICYCLOMINE HCL 10 MG CAPSULE 20 MG PO (06:13)
[2020-02-08 06:23] LABS: Basophils Percent Auto 0.3 % (0.2-1.2); Eosinophils Absolute Auto 0.1 K/mm3 (0-0.3); Hematocrit 34.3 % (37.0-47.0); Hemoglobin 11.4 g/dL (12.0-15.0); Immature Granulocyte Absolute 0.03 K/mm3 (0.00-0.031); Immature Granulocyte Percent A 0.3 % (0-0.5); Lymphocytes Absolute Auto 3.17 K/mm3 (0.9-3.2); Lymphocytes Percent Auto 30.2 % (18.3-44.2); Mean Corpuscular HGB Conc 33.2 g/dl (32-36); Mean Corpuscular Hemoglobin 30.7 pg (26-34); Mean Corpuscular Volume 92.5 fl (80-100); Monocytes Absolute Auto 0.8 K/mm3 (0.1-0.6); Monocytes Percent Auto 7.9 % (2.6-8.5); Neutrophils Absolute Auto 6.3 K/mm3 (1.3-6.7); Neutrophils Percent Auto 60.3 % (45.5-73.1); Platelet Count Result 234 k/mm3 (150-375); Red Blood Count 3.71 M/mm3 (4.2-5.4); Red Cell Distribution Width 12.5 % (11.5-14.5); White Blood Count 10.5 K/mm3 (4.5-10.0)
[2020-02-08 06:51] LABS: Alanine Aminotransferase 15 U/L (4-35); Albumin Level 3.2 g/dL (3.5-5.1); Alkaline Phosphatase 50 U/L (38-126); Aspartate Amino Transferase 20 U/L (14-36); Bilirubin,Total 0.3 mg/dL (0.2-1.3); Blood Urea Nitrogen 7 mg/dL (7-17); Calcium 8.2 mg/dL (8.4-10.2); Carbon Dioxide 23 mmol/L (22-30); Chloride 109 mmol/L (98-107); Estimated CRCL calculation 60 ml/min; Estimated Glomerular Filt Rate > 60; Glucose 90 mg/dL (65-105); Magnesium 1.9 mg/dL (1.6-2.3); Potassium 3.2 mmol/L (3.4-5.0); Sodium 136 mmol/L (137-145)
--- NOTE | 2020-02-08 08:51 | WPDGIPROGNO ---
Progress Note: A&P Assessment and Plan (1) Colitis: Code(s): K52.9 - Noninfective gastroenteritis and colitis, unspecified Status: Acute Assessment and Plan: better with medical treatment, less pain ok to advance diet as tolerated I can perform colonoscopy as outpatient in about 6 months to reassess (2) Portal vein thrombosis: Code(s): I81 - Portal vein thrombosis Status: Acute Assessment and Plan: started on blood thinners, no risk factors other than acute infection will go home with oral anticoagulation probably tomorrow, may need treatment for 3-6 months (3) Lower abdominal pain: Code(s): R10.30 - Lower abdominal pain, unspecified Status: Acute Subjective Date/time seen: 02/08/20 08:51 Interval history: she is feeling better today, no more diarrhea and abdominal pain is improved, tolerating liquid diet Review of Systems Review of Systems: All systems reviewed & are unremarkable except as noted in HPI and below Exam Const: General: comfortable and no acute distress HENMT: General nose exam: Normal nares present Eyes: General: appearance normal, both eyes and all related structures Neck: Neck: no JVD Resp: Auscultation: clear to auscultation bilaterally Cardio: Rate: regular rate Rhythm: regular rhythm GI: Inspection: non-distended GI Palp: Yes Soft to palpation Skin: General skin exam: normal color Neuro: General: gait normal Speech: normal speech Extrem: General: normal to inspection Psych: Mental Status: mental status grossly normal Objective Data Vital Signs Vital Signs: Vital Signs - 24 hr 02/07/20 12:00 02/07/20 14:00 02/07/20 16:00 Temperature 98.3 F Pulse Rate 64 62 70 Respiratory Rate 14 Blood Pressure 130/67 Pulse Oximetry 99 02/07/20 20:00 02/07/20 22:00 02/08/20 00:00 Temperature 98.6 F Pulse Rate 67 69 54 L Respiratory Rate 16 Blood Pressure 112/58 L Pulse Oximetry 96 02/08/20 04:00 02/08/20 06:00 Temperature 98.4 F Pulse Rate 64 65 Respiratory Rate 16 Blood Pressure 127/61 Pulse Oximetry 99 Intake/Output Intake/Output: Intake & Output 02/05/20 02/06/20 02/07/20 02/08/20 23:59 23:59 23:59 23:59 Intake Total 1150 3160 521 Output Total 300 650 Balance 1150 2860 -129 Meds/Results Medications: Active Medications Generic Name Dose Route Start Last Admin Trade Name Freq PRN Reason Stop Dose Admin Dicyclomine HCl 20 mg 02/07/20 12:06 02/08/20 06:13 Bentyl Capsule PO 20 mg QID PRN Administration Abdominal Cramping Enoxaparin Sodium 50 mg 02/07/20 08:00 02/07/20 20:07 Lovenox SUB-Q 50 mg Q12HR DARSHAN Administration Piperacillin/Tazobactam/Dextrose 3.375 gm in 50 mls @ 100 mls/hr 02/07/20 00:00 02/08/20 05:52 Zosyn 3.375 Gm/D5w 50ml Pm IVPB Infused Q6HR DARSHAN Infusion Sodium Chloride 1,000 mls @ 50 mls/hr 02/06/20 18:10 02/08/20 06:18 Normal Saline Iv IV CONT Not Given .Q20H DARSHAN Morphine Sulfate 2 mg 02/07/20 08:04 Morphine Sulfate Inj IV PUSH Q4H PRN Pain Rated 6 or Greater Nicotine 1 patch 02/06/20 20:40 02/07/20 08:48 Nicoderm Cq 21 Mg TRANSDERM 1 patch QAM DARSHAN Administration Radiology Results: ITS Impressions Abdomen/Pelvis CT 02/06/20 16:47 IMPRESSION: 1. Descending colonic colitis, consider infectious and ischemic etiologies. 2. Two regions of segmental portal venous thrombosis. Labs Labs: Laboratory Results - last 24 hr 02/08/20 02/08/20 05:59 05:59 WBC 10.5 H RBC 3.71 L Hgb 11.4 L Hct 34.3 L MCV 92.5 MCH 30.7 MCHC 33.2 RDW 12.5 Plt Count 234 MPV 11.0 H Immature Gran % (Auto) 0.3 Neut % (Auto) 60.3 Lymph % (Auto) 30.2 [place] % (Auto) 7.9 Eos % (Auto) 1.0 Baso % (Auto) 0.3 Lymph # (Auto) 3.17 [place] # (Auto) 0.8 H Eos # (Auto) 0.1 Baso # (Auto) 0.0 Abs Immat Gran (auto) 0.03 Absolute Neuts (auto) 6.3 Absol
[2020-02-08] MEDS: NICOTINE (*PBKC) 21 MG PATCH 1 PATCH TRANSDERM (09:47)
[2020-02-08] MEDS: ENOXAPARIN 60 MG/0.6 ML SYRINGE 50 MG SUB-Q (10:15)
[2020-02-08] MEDS: POTASSIUM CHLORIDE 20 MEQ PACKET (FOR LIQUID) 40 MEQ PO (11:08)
[2020-02-08 14:56] LABS: Hematocrit 37.7 % (37.0-47.0); Hemoglobin 12.8 g/dL (12.0-15.0)
--- NOTE | 2020-02-08 15:33 | PM.IMPN ---
Progress Note: A&P Assessment and Plan (1) Colitis: Code(s): K52.9 - Noninfective gastroenteritis and colitis, unspecified Status: Acute Assessment and Plan: Patient appears to be clinically improving again today; tolerating soft diet well today. BMs today with mild blood in stools per nursing. Dr. Huntley has been consulted for further input; appreciate recommendations. Discussed with Dr. Gerardo and would like to watch another night. Will keep overnight continue IV zosyn for now Diet per GI will d/c fluids Pain control as needed Monitor symptoms Await further recs from GI; likely discharge next couple of days if continued improvement Will need to follow up with PCP once established; f/u with GI in 6 months for possible colonoscopy for further evaluation (2) Portal vein thrombosis: Code(s): I81 - Portal vein thrombosis Status: Acute Assessment and Plan: As of now, likely related to inflammatory vs ischemic colitis. Patient has no history of IBD, contraceptive use, blood disorders, malignancy, or Lupus. Discussed in length a/c options. Insurance will not pay for Xarelto, but CC provided aid to help pay for Xarelto. Patient is highly reluctant in using warfarin for treatment. H&H stable during stay. D/c lovenox Start Xarelto 15 mg BID x21 days tonight; then likely 20 mg daily thereafter. Await further input from GI Likely will need director long term care (3-6 months) a/c Will need prompt establishment with PCP and followed as op Monitor H&H and signs of bleeding (3) Abnormal urinalysis: Code(s): R82.90 - Unspecified abnormal findings in urine Status: Acute Assessment and Plan: UC negative. Not having any signs/symptoms at this moment Monitor (4) Tobacco dependence: Code(s): F17.200 - Nicotine dependence, unspecified, uncomplicated Status: Acute Assessment and Plan: Encourage smoking cessation Nicotine patch as needed for now Subjective Date/time seen: 02/08/20 15:33 Interval history: Patient is a 59 yo F smoker with recent history of diverticulitis with treatment earlier this month who is here for evaluation of CT findings suggestive of colitis and portal venous thrombosis. Patient states she feels much better today; pain is reasonable. She noted blood in stool today, but minimal; orange in color. Having BMs, tolerating diet well so far. No other complaints at this moment. Denies f/c/s, cp/palpitations, sob/cough, dysuria, hematuria, cloudy urine, calf pain/swelling. Review of Systems Review of Systems: All systems reviewed & are unremarkable except as noted in HPI and below Exam Narrative: Exam Narrative: Patient lying supine in bed at time of visit Const: General: cooperative, comfortable, no acute distress, well developed, alert and awake Nutritional Appearance: well nourished Orientation/consciousness: patient oriented x3 HENMT: Head: normocephalic and atraumatic General nose exam: Normal nares present Face and sinus: face symmetric Mouth: Yes moist mucous membranes Teeth and gingiva: dentures Eyes: General: appearance normal, both eyes and all related structures EOM: EOMs intact bilaterally Neck: Neck: trachea midline and supple Resp: Effort & Inspection: normal respiratory effort Auscultation: clear to auscultation bilaterally Cardio: Rate: regular rate Rhythm: regular rhythm Heart sounds: no murmurs GI: Inspection: non-distended and no obesity GI Palp: No abdominal tenderness and Yes Soft to palpation Auscultation: normal bowel sounds and Hypoactive bowel sounds present Skin: General skin exam: normal color and no rashes or lesions noted Other: warm to touch, slightly diaphoretic Neuro: General: patient oriented x3, moves all extremities and no focal rigo
[2020-02-08] MEDS: RIVAROXABAN 15 MG TABLET PO (17:28)
[2020-02-09 06:00] VITALS: BP 122/76; PULSE 61; RESP 18; TEMP 36.5; O2SAT 97
[2020-02-09 06:03] LABS: Basophils Absolute Auto 0.1 K/mm3 (0.0-0.1); Basophils Percent Auto 0.6 % (0.2-1.2); Eosinophils Absolute Auto 0.2 K/mm3 (0-0.3); Eosinophils Percent Auto 2.2 % (0-4.4); Hematocrit 36.5 % (37.0-47.0); Hemoglobin 12.2 g/dL (12.0-15.0); Immature Granulocyte Absolute 0.02 K/mm3 (0.00-0.031); Immature Granulocyte Percent A 0.2 % (0-0.5); Lymphocytes Absolute Auto 3.56 K/mm3 (0.9-3.2); Mean Corpuscular HGB Conc 33.4 g/dl (32-36); Mean Corpuscular Hemoglobin 30.5 pg (26-34); Mean Corpuscular Volume 91.3 fl (80-100); Mean Platelet Volume 11.2 fl (7.4-10.4); Monocytes Absolute Auto 0.9 K/mm3 (0.1-0.6); Monocytes Percent Auto 9.9 % (2.6-8.5); Neutrophils Absolute Auto 4.2 K/mm3 (1.3-6.7); Neutrophils Percent Auto 47.1 % (45.5-73.1); Platelet Count Result 241 k/mm3 (150-375); Red Cell Distribution Width 12.3 % (11.5-14.5); White Blood Count 8.9 K/mm3 (4.5-10.0)
[2020-02-09 06:11] LABS: INR 1.2; Prothrombin Time 14.7 Seconds (11.1-14.7)
[2020-02-09 06:16] LABS: Alanine Aminotransferase 18 U/L (4-35); Albumin Level 3.6 g/dL (3.5-5.1); Alkaline Phosphatase 55 U/L (38-126); Aspartate Amino Transferase 25 U/L (14-36); Bilirubin,Total 0.4 mg/dL (0.2-1.3); Blood Urea Nitrogen 7 mg/dL (7-17); Calcium 8.7 mg/dL (8.4-10.2); Carbon Dioxide 26 mmol/L (22-30); Chloride 108 mmol/L (98-107); Estimated CRCL calculation 60 ml/min; Estimated Glomerular Filt Rate > 60; Glucose 86 mg/dL (65-105); Potassium 3.4 mmol/L (3.4-5.0); Sodium 138 mmol/L (137-145)
[2020-02-09] MEDS: RIVAROXABAN 15 MG TABLET PO (08:25)
[2020-02-09] MEDS: NICOTINE (*PBKC) 21 MG PATCH 1 PATCH TRANSDERM (08:25)
--- NOTE | 2020-02-09 13:47 | WPDGIPROGNO ---
Progress Note: A&P Assessment and Plan (1) Colitis: Code(s): K52.9 - Noninfective gastroenteritis and colitis, unspecified Status: Acute Assessment and Plan: probably ischemic vs infectious already doing much better, ok to go home with 3 days of abx colonoscopy as outpatient in about 6 months to assess for healing (she had a colonoscopy about a year ago elsewhere) (2) Portal vein thrombosis: Code(s): I81 - Portal vein thrombosis Status: Acute Assessment and Plan: will go home on oral anticoagulation, doppler ultrasound can be done in 3-6 months and if resolved then discontinue AC (3) Lower abdominal pain: Code(s): R10.30 - Lower abdominal pain, unspecified Status: Acute Subjective Date/time seen: 02/09/20 13:47 Interval history: no more pain, tolerating soft diet Review of Systems Review of Systems: All systems reviewed & are unremarkable except as noted in HPI and below Exam Const: General: comfortable and no acute distress HENMT: General nose exam: Normal nares present Eyes: General: appearance normal, both eyes and all related structures Neck: Neck: no JVD Resp: Auscultation: clear to auscultation bilaterally Cardio: Rate: regular rate Rhythm: regular rhythm GI: Inspection: non-distended GI Palp: Yes Soft to palpation Skin: General skin exam: normal color Neuro: General: gait normal Speech: normal speech Extrem: General: normal to inspection Psych: Mental Status: mental status grossly normal Objective Data Vital Signs Vital Signs: Vital Signs - 24 hr 02/08/20 14:00 02/08/20 16:00 02/08/20 22:00 Temperature 97.8 F 97.5 F L Pulse Rate 56 L 64 67 Respiratory Rate 18 18 Blood Pressure 125/77 119/66 Pulse Oximetry 98 97 02/09/20 06:00 Temperature 97.7 F Pulse Rate 61 Respiratory Rate 18 Blood Pressure 122/76 Pulse Oximetry 97 Intake/Output Intake/Output: Intake & Output 02/06/20 02/07/20 02/08/20 02/09/20 23:59 23:59 23:59 23:59 Intake Total 1150 3160 1501 570 Output Total 300 2250 1600 Balance 1150 5048 -575 -0282 Meds/Results Medications: Active Medications Generic Name Dose Route Start Last Admin Trade Name Freq PRN Reason Stop Dose Admin Acetaminophen 650 mg 02/08/20 15:55 Tylenol Tablet PO Q6H PRN Pain Rated 5 or Less Hydrocodone Bitart/Acetaminophen 1 tab 02/08/20 15:55 [place] 5-325 Mg PO Q6H PRN Pain Rated 6 or Greater Dicyclomine HCl 20 mg 02/07/20 12:06 02/08/20 06:13 Bentyl Capsule PO 20 mg QID PRN Administration Abdominal Cramping Piperacillin/Tazobactam/Dextrose 3.375 gm in 50 mls @ 100 mls/hr 02/07/20 00:00 02/09/20 12:00 Zosyn 3.375 Gm/D5w 50ml Pm IVPB 100 mls/hr Q6HR DARSHAN Administration Nicotine 1 patch 02/06/20 20:40 02/09/20 08:25 Nicoderm Cq 21 Mg TRANSDERM 1 patch QAM DARSHAN Administration Rivaroxaban 15 mg 02/08/20 17:00 02/09/20 08:25 Xarelto PO 02/29/20 17:01 15 mg BIDWM DARSHAN Administration Rivaroxaban 20 mg 03/01/20 17:00 Xarelto PO DAILY@1700 DARSHAN Radiology Results: ITS Impressions Abdomen/Pelvis CT 02/06/20 16:47 IMPRESSION: 1. Descending colonic colitis, consider infectious and ischemic etiologies. 2. Two regions of segmental portal venous thrombosis. Labs Labs: Laboratory Results - last 24 hr 02/08/20 02/09/20 02/09/20 14:51 05:33 05:33 WBC 8.9 RBC 4.00 L Hgb 12.8 12.2 Hct 37.7 36.5 L MCV 91.3 MCH 30.5 MCHC 33.4 RDW 12.3 Plt Count 241 MPV 11.2 H Immature Gran % (Auto) 0.2 Neut % (Auto) 47.1 Lymph % (Auto) 40.0 [place] % (Auto) 9.9 H Eos % (Auto) 2.2 Baso % (Auto) 0.6 Lymph # (Auto) 3.56 H [place] # (Auto) 0.9 H Eos # (Auto) 0.2 Baso # (Auto) 0.1 Abs Immat Gran (auto) 0.02 Absolute Neuts (auto) 4.2 Absolute Nucleated RBC 0.0 Nucleated RBC % 0.0 PT 14.7 D INR 1.2 Sodium
[2020-02-09 14:00] VITALS: BP 135/61; PULSE 73; RESP 18; TEMP 36.6; O2SAT 98
--- NOTE | 2020-02-09 14:13 | PM.DS ---
DS: Admitting Diagnosis Admitting Diagnosis Admitting Diagnosis: Noninfective gastroenteritis and colitis, unspecified DS: Discharge Diagnosis Discharge Diagnosis (1) Colitis: Code(s): K52.9 - Noninfective gastroenteritis and colitis, unspecified Status: Acute Assessment and Plan: Patient is asymptomatic today; tolerating diet well today. She reports a small BMs today with no blood present. Dr. Audi BALDWIN who believes she is stable for discharge at this time. He recommended discharging the patient on 3 more days of oral antibiotics for possible infectious colitis. Patient H&H has been stable and no more blood is seen in her stools. Dr. Gerardo will f/u with colonoscopy in 6 months for further evaluation Patient understands and agrees with the plan. All questions answered (2) Portal vein thrombosis: Code(s): I81 - Portal vein thrombosis Status: Acute Assessment and Plan: As of now, likely related to inflammatory vs ischemic colitis. Patient has no history of IBD, contraceptive use, blood disorders, malignancy, or Lupus. Insurance will not pay for Xarelto, but provided aid to help pay for Xarelto. Patient is highly reluctant in using warfarin for treatment. H&H stable during stay. Start Xarelto 15 mg BID x21 days tonight; then likely 20 mg daily thereafter. Likely will need intermission coordinator (3-6 months) Will need prompt establishment with PCP and followed as discharged. She states she does not have a primary care provider at this time but she has been to [facility] in [place]. I explained to her if she is unable to find a primary care then she should go back to [facility] his a help with patient's financial needs and get you in fairly quickly. She understands. (3) Abnormal urinalysis: Code(s): R82.90 - Unspecified abnormal findings in urine Status: Acute Assessment and Plan: UC negative. Not having any signs/symptoms at this moment (4) Tobacco dependence: Code(s): F17.200 - Nicotine dependence, unspecified, uncomplicated Status: Acute Assessment and Plan: Encourage smoking cessation for 3 minutes Patient would like to go home with nicotine patches so she could quit smoking. DS: Summary Hospital Course Reason for hospitalization: Patient is a 59 year old woman smoker with recent history of diverticulitis with treatment earlier this month who is here for evaluation with severe abdominal pain. Initial vitals Showed temperature of 97.2?, heart rate 61, blood pressure 100/80, respiratory rate 18, oxygen saturation 100% on room air. Labs showed leukocytosis at 12,400, normal differential, normal coag panel, CMP was normal, urinalysis showed 2+ protein, 1+ blood, rbc's 11-20, 1+ leukocyte esterase, WBC 16-20, and moderate squamous cells. Urine culture was negative. CT abdomen pelvis showed Descending colonic colitis, consider infectious and ischemic etiologies. Two regions of segmental portal venous thrombosis. Patient was admitted into the hospital and started on IV Zosyn for possible infectious colitis, therapeutic Lovenox for treatment of portal vein thrombus, and consult to GI specialist for further evaluation. Dr. Gerardo evaluated the patient and recommended supportive care, antibiotics, and increase diet slowly. Over the next few days she was feeling much better without any more pain. She was started on Xarelto upon discharge. His also given oral antibiotics for another few days in cases infectious even though likely. She understands and agrees with the plan all questions answered. Status at Discharge Cognitive/behavioral status at discharge: Stable, improved. Time Spent with Patient Time attestation: Total time spent providing and
== END 2020-02-09 15:25 | disposition home or self-care (01) ==
LOC: ANHED 18:20 → ANH3MEDSUR 18:23
PROVIDERS: Physician Assistant; Admitting Provider Internal Medicine; Emergency Provider Emergency Medicine; PCP Advanced Practice Midwife; Visit Provider Physician Assistant
DX: K52.9 Noninfective gastroenteritis and colitis, unspecified (principal); I81 Portal vein thrombosis; R82.90 Unspecified abnormal findings in urine; F17.200 Nicotine dependence, unspecified, uncomplicated; Z87.19 Personal history of other diseases of the digestive system
CPT/HCPCS: 36415; 74177; 80053; 81001; 83605; 83690; 83735; 85014; 85018; 85025; 85610; 85730; 87086; 93005; 96361; 96365; 96367; 96372; 96375; 99285; A9270; G0378; G0379; J0131; J0500; J1650; J2270; J2405; J2543; J7030; Q9967

== ENCOUNTER 2020-07-22 07:52 | Emergency (ER) | payer OTHER, SELFPAY ==
--- NOTE | ~2020-07-22 | XR_ITS ---
EXAMINATION: XR chest 2V DATE: 07/22/2020 09:29 INDICATION: Chest pain, cardiac arrhythmia TECHNIQUE: PA and lateral views of the chest are obtained. COMPARISON: None available FINDINGS: The lungs are free of acute opacities. There is no pleural effusion or pneumothorax. The ca rdiomediastinal silhouette is normal. There is mild thoracic spondylosis. Bilateral breast implants a re noted. IMPRESSION: 1. No acute cardiopulmonary abnormality. Reviewed, dictated and finalized at location A. IC WORKER
[2020-07-22 07:50] VITALS: BP 131/76; PULSE 142; RESP 22; TEMP 36.6; O2SAT 100
[2020-07-22] MEDS: ADENOSINE IV SOLN 6 MG/2 ML VIAL IV PUSH (08:40)
[2020-07-22] MEDS: SODIUM CHLORIDE 0.9% IV 1,000 ML 999 ML IV CONT (08:40)
[2020-07-22 08:41] VITALS: BP 101/69; PULSE 92; RESP 22; O2SAT 99
[2020-07-22 08:52] LABS: Basophils Absolute Auto 0.1 K/mm3 (0.0-0.1); Basophils Percent Auto 0.5 % (0.2-1.2); Eosinophils Absolute Auto 0.1 K/mm3 (0-0.3); Eosinophils Percent Auto 0.7 % (0-4.4); Hematocrit 41.9 % (37.0-47.0); Immature Granulocyte Absolute 0.05 K/mm3 (0.00-0.031); Immature Granulocyte Percent A 0.4 % (0-0.5); Lymphocytes Percent Auto 27.9 % (18.3-44.2); Mean Corpuscular HGB Conc 33.4 g/dl (32-36); Mean Corpuscular Hemoglobin 31.5 pg (26-34); Mean Corpuscular Volume 94.4 fl (80-100); Mean Platelet Volume 10.6 fl (7.4-10.4); Monocytes Absolute Auto 0.9 K/mm3 (0.1-0.6); Monocytes Percent Auto 7.3 % (2.6-8.5); Neutrophils Absolute Auto 7.9 K/mm3 (1.3-6.7); Neutrophils Percent Auto 63.2 % (45.5-73.1); Platelet Count Result 286 k/mm3 (150-375); Red Blood Count 4.44 M/mm3 (4.2-5.4); Red Cell Distribution Width 12.8 % (11.5-14.5); White Blood Count 12.6 K/mm3 (4.5-10.0)
--- NOTE | 2020-07-22 08:54 | ECG_ITS ---
Measurements Intervals [place] Rate: 105 P: 64 [place]: 158 QRS: 91 QRSD: 86 T: 61 QT: 328 QTc: 435 Interpretive Statements SINUS TACHYCARDIA POSSIBLE LEFT ATRIAL ENLARGEMENT BASELINE ARTIFACT- I, II, III, AVR, AVL, AVF, V1 BORDERLINE ECG Electronically Signed On 07-22-2020 9:00:12 STACK ATTENDANT by Shawn Yi D.O.
--- NOTE | 2020-07-22 08:54 | ECG_ITS ---
Measurements Intervals [place] Rate: 145 P: [place]: 0 QRS: 71 QRSD: 193 T: 0 QT: 280 QTc: 436 Interpretive Statements ATRIAL TACHYCARDIA WITH RAPID VENTRICULAR RESPONSE ST-T WAVE ABNORMALITY IN INFERIOR LEADS- CONSIDER ISCHEMIA BASELINE ARTIFACT- I, II, III, AVR, AVL ABNORMAL ECG Electronically Signed On 07-22-2020 8:59:27 SOILS TECHNICIAN by Shawn Yi D.O.
[2020-07-22 09:00] VITALS: BP 105/65; PULSE 85; RESP 21; O2SAT 100
[2020-07-22 09:00] LABS: INR 1.5; Prothrombin Time 18.9 Seconds (11.1-14.7)
[2020-07-22 09:01] LABS: Partial Thromboplastin Time 39.2 SECONDS (22.3-36.8)
[2020-07-22 09:07] LABS: Anion Gap 8 mmol/L (8-16); Blood Urea Nitrogen 13 mg/dL (7-17); Calcium 9.7 mg/dL (8.4-10.2); Carbon Dioxide 23 mmol/L (22-30); Chloride 111 mmol/L (98-107); Estimated CRCL calculation 71 ml/min; Estimated Glomerular Filt Rate > 60; Glucose 100 mg/dL (65-105); Potassium 4.4 mmol/L (3.4-5.0); Sodium 142 mmol/L (137-145)
[2020-07-22 09:19] LABS: Troponin I 0.018 ng/mL (0.000-0.034)
[2020-07-22 10:06] VITALS: BP 100/77; PULSE 82; RESP 21; O2SAT 100
--- NOTE | 2020-07-22 10:33 | ED.GENADULT ---
HPI - General Adult General Chief complaint: Dizziness Stated complaint: dizzy Time Seen by Provider: 07/22/20 07:54 History of Present Illness HPI narrative: Patient is a 59-year-old female who presents ER with palpitations and chest tightness. Patient was walking into work when she had sudden onset bandlike chest tightness with dizziness and racing of the heart. Symptoms have persisted. Heart rate in the 140s upon arrival. No history of arrhythmia. Patient is on Xarelto for blood clot that she had in her liver. She has been on this for 5 months. She said no lower extremity swelling. She does smoke cigarettes and drinks coffee regularly. Related Data Allergies Allergy/AdvReac Type Severity Reaction Status Date / Time meperidine [From Demerol] Allergy Intermediate Swelling Verified 07/22/20 08:52 Review of Systems Review of Systems: All systems reviewed & are unremarkable except as noted in HPI and below Constitutional: Constitutional: Denies chills, Denies fever(s) and Denies weakness ENT: Denies nasal congestion and Denies sore throat Cardiovascular: Cardiovascular: Reports chest pain, Reports rapid heart rate and Denies radiating jaw, neck or arm pain Respiratory: Respiratory: Denies cough, Denies dyspnea and Denies wheezing Gastrointestinal: Gastrointestinal: Denies abdominal pain, Denies nausea and Denies vomiting PMFSH Past Medical History Medical History (Updated 07/22/20 @ 10:39 by Luigi Sheikh MD) Diverticulitis Lower abdominal pain Surgical History Surgical History History of section, classical History of tubal ligation Family History Family History Grandparent Diabetes mellitus S/P CABG (coronary artery bypass graft) Hypertension Social History Social History Smoking status: Current every day smoker Alcohol intake: unknown Substance use: unknown Gender identity (if verbalized by the patient): Female Spiritual care concerns: No Exam Narrative: Exam Narrative: GENERAL: Well-appearing, well-nourished, and in no acute distress. HEAD: Normocephalic, atraumatic. ENT: Mucous membranes moist. CHEST: Clear to auscultation. No respiratory distress. HEART: Tachycardic and regular. Normal peripheral pulses. ABDOMEN: Soft, nontender, nondistended. EXTREMITIES: Normal range of motion. No edema. SKIN: Warm, dry, no rash. NEURO: Alert and oriented x3. PSYCH: Normal mood and affect. Course Course Emergency Course: Patient converted to normal sinus rhythm after 6 mg of adenosine IV. I discussed case with Dr. oCto. Recommends metoprolol 12.5 mg twice daily given lower blood pressure. Patient counseled on smoking cessation and avoidance of caffeine. Vital Signs Vital signs: Vital Signs Temperature 98 F 07/22/20 07:50 Pulse Rate 142 H 07/22/20 07:50 Respiratory Rate 22 H 07/22/20 07:50 Blood Pressure 131/76 07/22/20 07:50 Pulse Oximetry 100 07/22/20 07:50 Temperature 98 F 07/22/20 07:50 Pulse Rate 82 07/22/20 10:06 Respiratory Rate 21 H 07/22/20 10:06 Blood Pressure 100/77 07/22/20 10:06 Pulse Oximetry 100 07/22/20 10:06 Medical Decision Making Vital Signs Vital Signs: Vital Signs Temperature 98 F 07/22/20 07:50 Pulse Rate 142 H 07/22/20 07:50 Respiratory Rate 22 H 07/22/20 07:50 Blood Pressure 131/76 07/22/20 07:50 Pulse Oximetry 100 07/22/20 07:50 Temperature 98 F 07/22/20 07:50 Pulse Rate 82 07/22/20 10:06 Respiratory Rate 21 H 07/22/20 10:06 Blood Pressure 100/77 07/22/20 10:06 Pulse Oximetry 100 07/22/20 10:06 Lab Data Result diagrams: 07/22/20 08:43 07/22/20 08:43 Labs: Lab Results 07/22/20 07/22/20 07/22/20 Range/Units 08:43 08:43 08:43 WBC 12.6 H (4.5-10.0) K/mm3 RBC 4.44 (4.2-
[2020-07-22 10:51] VITALS: BP 119/76; PULSE 82; RESP 18; O2SAT 100
== END 2020-07-22 11:08 | disposition home or self-care (01) ==
PROVIDERS: Emergency Provider Emergency Medicine
DX: I47.1 Supraventricular tachycardia (principal); F17.200 Nicotine dependence, unspecified, uncomplicated; R94.31 Abnormal electrocardiogram [ECG] [EKG]
CPT/HCPCS: 36415; 71046; 80048; 84484; 85025; 85610; 85730; 93005; 96361; 96374; 99284; J0153; J7030

== ENCOUNTER 2020-09-17 22:31 | Emergency (ER) | payer OTHER, SELFPAY ==
[2020-09-17] VITALS (9 sets, daily range): BP systolic 83–109; BP diastolic 50–67; PULSE 65–79; RESP 15–20; TEMP 36.6; O2SAT 95–99
--- NOTE | ~2020-09-17 | CT_ITS ---
EXAMINATION: CTA chest PE protocol DATE: 09/18/2020 00:33 INDICATION: Transient alteration of awareness TECHNIQUE: Computed tomography angiography (CTA) of the chest was performed with 100 mL Omnipaque-350 intravenous contrast timed to evaluate the pulmonary arteries. Coronal maximum intensity projection 3D-reconstructions were created by the technologist. The dose-length product (DLP) was 139.37 mGy-cm. Automated exposure control and iterative reconstruction technique were employed. COMPARISON: None. FINDINGS: The pulmonary arteries are well-opacified. No pulmonary embolism is identified. There is sc arring of the lung apices. There is mild dependent atelectasis. No pathologically enlarged thoracic l ymph nodes are identified. The heart size is normal. There is mild emphysema. Bilateral breast implan ts are noted. IMPRESSION: 1. No pulmonary embolism or acute cardiopulmonary abnormality. Reviewed, dictated and finalized at location A. NNED LEATHER ROLLER
--- NOTE | ~2020-09-17 | CT_ITS ---
EXAMINATION: CT abdomen pelvis w con INDICATION: Left lower quadrant pain TECHNIQUE: Computed tomographic images of the abdomen and pelvis were obtained after the administrati on of 100 cc of Omnipaque 350 intravenous contrast. The dose-length product (DLP) was 206.93 mGy-cm. Automated exposure control and iterative reconstruction technique were employed. COMPARISON: 02/06/2020 FINDINGS: Minimal dependent atelectasis is present in the lung bases. The heart size is normal. Bilat eral breast implants are noted. The liver, spleen, pancreas, gallbladder, and adrenal glands are norm al. The kidneys are unremarkable. No pathologically enlarged abdominal or pelvic lymph nodes are iden tified. There is no free intraperitoneal gas or evidence of bowel obstruction. Colonic diverticulosis is present without evidence of diverticulitis. The appendix is normal. There is severe lumbar spondy losis at L5-S1. IMPRESSION: 1. No CT correlate for the patient's symptoms. 2. Diverticulosis without evidence of diverticulitis. Reviewed, dictated and finalized at location A. OR FINANCIAL REPORTING ANALYST
--- NOTE | 2020-09-17 22:39 | ECG_ITS ---
Measurements Intervals [place] Rate: 65 P: 66 [place]: 177 QRS: 84 QRSD: 95 T: 63 QT: 388 QTc: 405 Interpretive Statements SINUS RHYTHM POSSIBLE LEFT ATRIAL ENLARGEMENT BASELINE ARTIFACT- I, II, III, AVF BORDERLINE ECG Electronically Signed On 09-18-2020 7:59:18 KNITTING DEMONSTRATOR by Shawn Yi D.O.
[2020-09-17] MEDS: SODIUM CHLORIDE 0.9% IV 1,000 ML 999 ML IV CONT (23:11)
[2020-09-17] MEDS: ONDANSETRON INJ 4 MG/2 ML VIAL IV PUSH (23:11)
--- NOTE | 2020-09-17 23:15 | PC.NURSE ---
Patient's daughter calls to get update on patient status.
[2020-09-17 23:17] LABS: Basophils Percent Auto 0.2 % (0.2-1.2); Eosinophils Absolute Auto 0.1 K/mm3 (0-0.3); Eosinophils Percent Auto 1.3 % (0-4.4); Hematocrit 39.3 % (37.0-47.0); Hemoglobin 13.2 g/dL (12.0-15.0); Immature Granulocyte Absolute 0.03 K/mm3 (0.00-0.031); Immature Granulocyte Percent A 0.3 % (0-0.5); Lymphocytes Absolute Auto 2.82 K/mm3 (0.9-3.2); Lymphocytes Percent Auto 29.5 % (18.3-44.2); Mean Corpuscular HGB Conc 33.6 g/dl (32-36); Mean Corpuscular Hemoglobin 31.4 pg (26-34); Mean Corpuscular Volume 93.6 fl (80-100); Monocytes Absolute Auto 0.9 K/mm3 (0.1-0.6); Monocytes Percent Auto 9.1 % (2.6-8.5); Neutrophils Absolute Auto 5.7 K/mm3 (1.3-6.7); Neutrophils Percent Auto 59.6 % (45.5-73.1); Platelet Count Result 198 k/mm3 (150-375); Red Cell Distribution Width 12.4 % (11.5-14.5); White Blood Count 9.6 K/mm3 (4.5-10.0)
[2020-09-17 23:30] LABS: Anion Gap 6 mmol/L (8-16); Blood Urea Nitrogen 20 mg/dL (7-17); Calcium 9.2 mg/dL (8.4-10.2); Carbon Dioxide 26 mmol/L (22-30); Chloride 107 mmol/L (98-107); Estimated CRCL calculation 34 ml/min; Estimated Glomerular Filt Rate 42; Glucose 142 mg/dL (65-105); Potassium 3.7 mmol/L (3.4-5.0); Sodium 139 mmol/L (137-145)
[2020-09-17 23:34] LABS: Alanine Aminotransferase 15 U/L (4-35); Albumin Level 3.7 g/dL (3.5-5.1); Alkaline Phosphatase 51 U/L (38-126); Aspartate Amino Transferase 22 U/L (14-36); Bilirubin,Total 0.3 mg/dL (0.2-1.3)
[2020-09-17 23:46] LABS: Troponin I < 0.012 ng/mL (0.000-0.034)
[2020-09-17 23:46] LABS: Lactic Acid Reflex 1.3 mmol/L (0.7-2.1)
[2020-09-18] VITALS (9 sets, daily range): BP systolic 112–126; BP diastolic 59–80; PULSE 70–95; RESP 17–22; O2SAT 97–100
--- NOTE | 2020-09-18 00:07 | PC.NURSE ---
Patient being taken to CT.
--- NOTE | 2020-09-18 00:31 | PC.NURSE ---
Patient ambulated to the bathroom and back to her room with out assistance. Patient denied any dizziness.
--- NOTE | 2020-09-18 01:35 | ED.GENADULT ---
HPI - General Adult General Chief complaint: Syncope Stated complaint: syncope Time Seen by Provider: 09/17/20 22:57 History of Present Illness HPI narrative: Patient is a 59-year-old female who presents the emergency department chief complaint of near syncope. Patient reports she was at home she sat up started to walk and felt lightheaded. The patient states that she started to pass out reports he became extremely lightheaded and felt this was similar to whenever she was diagnosed with a portal thrombus previously. Patient has completed a course of oral anticoagulants and is currently not on anticoagulant therapy. Patient denies chest pain denies shortness of breath. Related Data Allergies Allergy/AdvReac Type Severity Reaction Status Date / Time meperidine [From Demerol] Allergy Intermediate Swelling Verified 09/17/20 22:42 Review of Systems Review of Systems: Narrative: A 10 system review of systems was completed on the patient and is negative except for what is stated in the HPI. Nursing and ancillary documentation was reviewed. [facility] Past Medical History Medical History Diverticulitis Lower abdominal pain Surgical History Surgical History History of section, classical History of hysterectomy History of tubal ligation Family History Family History Grandparent Diabetes mellitus S/P CABG (coronary artery bypass graft) Hypertension Father Heart disease Hypertension Mother Cancer Social History Social History Smoking status: Current every day smoker Alcohol intake: unknown Substance use: unknown Gender identity (if verbalized by the patient): Female Spiritual care concerns: No Exam Narrative: Exam Narrative: GENERAL: Well-appearing, well-nourished, and in no acute distress. HEAD: Normocephalic, atraumatic. EYES: PERRLA and EOMI. ENT: Nares clear, no rhinorrhea or epistaxis. Mucous membranes moist. NECK: Supple. CHEST: Clear to auscultation. No respiratory distress. HEART: Regular rate and rhythm. No murmur heard. Normal peripheral pulses. ABDOMEN: Soft, tender to palpation in the left lower quadrant, nondistended, normal active bowel sounds. EXTREMITIES: Normal range of motion. No edema. SKIN: Warm, dry, no rash. NEURO: No focal deficits. Alert and oriented x3. PSYCH: Normal mood and affect. Course Course Emergency Course: Patient was orthostatic when blood pressures were checked. Patient received IV fluids and has improvement in her symptomatology. A CTA of the chest was obtained due to her prior history of thrombotic event and that she had syncope today that showed no evidence of pulmonary embolism Patient had some mild tenderness to palpation in the left lower quadrant that a CT scan of the abdomen pelvis was obtained which showed no evidence of acute abnormality and the previous portal thrombus had resolved Vital Signs Vital signs: Vital Signs Temperature 36.6 C 09/17/20 22:32 Pulse Rate 67 09/17/20 22:32 Respiratory Rate 20 09/17/20 22:32 Blood Pressure 100/53 L 09/17/20 22:32 Pulse Oximetry 97 09/17/20 22:32 Temperature 36.6 C 09/17/20 22:32 Pulse Rate 80 09/18/20 01:40 Respiratory Rate 22 H 09/18/20 01:16 Blood Pressure 126/70 09/18/20 01:40 Pulse Oximetry 100 09/18/20 00:04 Medical Decision Making Vital Signs Vital Signs: Vital Signs Temperature 36.6 C 09/17/20 22:32 Pulse Rate 67 09/17/20 22:32 Respiratory Rate 20 09/17/20 22:32 Blood Pressure 100/53 L 09/17/20 22:32 Pulse Oximetry 97 09/17/20 22:32 Temperature 36.6 C 09/17/20 22:32 Pulse Rate 80 09/18/20 01:40 Respiratory Rate 22 H 09/18/20 01:16 Blood Pressure 126/70 09/18/20 01:40 Pulse O
--- NOTE | 2020-09-18 01:36 | PC.NURSE ---
Patient ambulated to the bathroom and back to her room. Patient had a steady gait and denied any dizziness or weakness.
== END 2020-09-18 01:59 | disposition home or self-care (01) ==
PROVIDERS: Emergency Medicine; Emergency Provider Emergency Medicine
DX: E86.0 Dehydration (principal); I95.1 Orthostatic hypotension; F17.200 Nicotine dependence, unspecified, uncomplicated; R94.31 Abnormal electrocardiogram [ECG] [EKG]
CPT/HCPCS: 36415; 71275; 74177; 80048; 80076; 83605; 84484; 85025; 93005; 96361; 96374; 99284; J2405; J7030; Q9967

== ENCOUNTER 2021-08-23 14:02 | Emergency (ER) | payer OTHER, SELFPAY ==
[2021-08-23 14:34] VITALS: BP 133/93; PULSE 100; RESP 16; TEMP 36.7; O2SAT 100
[2021-08-23 14:53] LABS: Basophils Percent Auto 0.4 % (0.2-1.2); Eosinophils Absolute Auto 0.1 K/mm3 (0-0.3); Eosinophils Percent Auto 0.9 % (0-4.4); Hematocrit 42.7 % (37.0-47.0); Hemoglobin 14.7 g/dL (12.0-15.0); Immature Granulocyte Absolute 0.03 K/mm3 (0.00-0.031); Immature Granulocyte Percent A 0.3 % (0-0.5); Lymphocytes Absolute Auto 2.77 K/mm3 (0.9-3.2); Lymphocytes Percent Auto 27.8 % (18.3-44.2); Mean Corpuscular HGB Conc 34.4 g/dl (32-36); Mean Corpuscular Hemoglobin 31.5 pg (26-34); Mean Corpuscular Volume 91.4 fl (80-100); Mean Platelet Volume 10.5 fl (7.4-10.4); Monocytes Absolute Auto 0.8 K/mm3 (0.1-0.6); Monocytes Percent Auto 8.2 % (2.6-8.5); Neutrophils Absolute Auto 6.2 K/mm3 (1.3-6.7); Neutrophils Percent Auto 62.4 % (45.5-73.1); Platelet Count Result 281 k/mm3 (150-375); Red Blood Count 4.67 M/mm3 (4.2-5.4); Red Cell Distribution Width 12.4 % (11.5-14.5)
[2021-08-23 15:16] LABS: Add Urine Microscopic? YES; Appearance Urine Cloudy (Clear); Bacteria Urine 2+ /hpf; Bilirubin Urine Negative (Negative); Blood Urine 2+ (Negative); Calcium Oxalate Crystals Urine Present /hpf; Color Urine Amber (Yellow); Glucose Urine UA Negative (Negative); Ketones Urine Negative (Negative); Leukocyte Esterase Ur Trace LEU/UL (Negative); Mucus Urine Few /lpf; Nitrate Urine Negative (Negative); Protein Urine 1+ mg/dL (Negative); Specific Grav Ur 1.029 (1.001-1.035); Squamous Epithelial Cell Urine Many /hpf (Few)
[2021-08-23 15:23] LABS: Alanine Aminotransferase 20 U/L (4-35); Albumin Level 4.4 g/dL (3.5-5.1); Alkaline Phosphatase 62 U/L (38-126); Anion Gap 8 mmol/L (8-16); Aspartate Amino Transferase 25 U/L (14-36); Bilirubin,Total 0.4 mg/dL (0.2-1.3); Blood Urea Nitrogen 14 mg/dL (7-17); Calcium 9.9 mg/dL (8.4-10.2); Carbon Dioxide 23 mmol/L (22-30); Chloride 108 mmol/L (98-107); Estimated CRCL calculation 54 ml/min; Estimated Glomerular Filt Rate > 60; Glucose 121 mg/dL (65-110); Potassium 3.6 mmol/L (3.4-5.0); Sodium 139 mmol/L (137-145)
--- NOTE | 2021-08-23 16:29 | ED.BACK ---
HPI - Back Pain/Injury General Chief Complaint: Back Pain/Injury <JAMEY West Last Filed: 08/23/21 17:19> Stated Complaint: bladder pains <JAMEY West Last Filed: 08/23/21 17:19> Time Seen by Provider: 08/23/21 15:41 <JAMEY West Last Filed: 08/23/21 17:19> Source: patient <JAMEY West Last Filed: 08/23/21 17:19> Mode of arrival: ambulatory <JAMEY West Last Filed: 08/23/21 17:19> Limitations: no limitations <JAMEY West Last Filed: 08/23/21 17:19> History of Present Illness HPI Narrative: This is a 60-year-old female that presents to the emergency department for left-sided mid back pain present over the last week. Reports a sharp, squeezing pain. Reports the pain sometimes radiates to her abdomen. Associated with urinary frequency. Sometimes the pain is worse with movement. Denies fever, cough, shortness of breath, or lower extremity edema. <JAMEY West Last Filed: 08/23/21 17:19> Related Data Home Medications: Home Medications Medication Instructions Recorded Confirmed No Home Medications 08/23/21 08/23/21 <JAMEY West Last Filed: 08/23/21 17:19> Allergies/Adverse Reactions: Allergies Allergy/AdvReac Type Severity Reaction Status Date / Time meperidine [From Demerol] Allergy Intermediate Swelling Verified 10/04/20 11:24 <JAMEY West Last Filed: 08/23/21 17:19> Review of Systems Review of Systems: CONSTITUTIONAL: Denies fever CARDIOVASCULAR: Denies chest pain RESPIRATORY: Denies dyspnea. GASTROINTESTINAL: Reports abdominal pain. Denies nausea, vomiting, or diarrhea. GENITOURINARY: Reports dysuria. Denies hematuria. MUSCULOSKELETAL: Reports back pain, joint pain, and myalgia. <JAMEY West Last Filed: 08/23/21 17:19> All systems reviewed & are unremarkable except as noted in HPI and below <Carleen Zuleta PA-C - Last Filed: 08/23/21 17:19> PMFSH Past Medical History Medical History: Medical History Diverticulitis Lower abdominal pain <JAMEY West Last Filed: 08/23/21 17:19> Surgical History Surgical History: Surgical History History of section, classical History of hysterectomy History of tubal ligation <JAMEY West Last Filed: 08/23/21 17:19> Family History Family History: Family History Grandparent Diabetes mellitus S/P CABG (coronary artery bypass graft) Hypertension Father Heart disease Hypertension Mother Cancer <Carleen Zuleta PA-C - Last Filed: 08/23/21 17:19> Social History Social History: Social History Smoking status: Current every day smoker Alcohol intake: unknown Substance use: unknown Gender identity (if verbalized by the patient): Female Spiritual care concerns: No <Carleen Zuleta PA-C - Last Filed: 08/23/21 17:19> Exam Narrative: GENERAL: Well-appearing, well-nourished, and in no acute distress. HEAD: Normocephalic, atraumatic. EYES: EOMI. CHEST: Clear to auscultation. No respiratory distress. No wheezes rales or rhonchi HEART: Regular rate and rhythm. No murmur heard. Normal peripheral pulses. ABDOMEN: Soft, nontender, nondistended, normal active bowel sounds. No CVA tenderness EXTREMITIES: Normal range of motion. No edema. SKIN: Warm, dry, no rash. NEURO: No focal deficits. Alert and oriented x3. PSYCH: Normal mood and affect <JAMEY West Last Filed: 08/23/21 17:19> Course HYDRAULIC JACK MECHANIC/PA Physician Supervision For this patient encounter, I reviewed the HYDRAULIC JACK MECHANIC or PA documentation, treatment plan, and medical decision making. <Kenneth Oliveros MD - Last Filed: 08/23/21 19:11> Vital Signs Vital signs:
--- NOTE | 2021-08-23 16:40 | PC.NURSE ---
pt not in room
== END 2021-08-23 16:40 | disposition left against medical advice (07) ==
LOC: ANHED 17:21
PROVIDERS: Emergency Medicine; Emergency Provider Emergency Medicine
DX: R10.9 Unspecified abdominal pain (principal); F17.200 Nicotine dependence, unspecified, uncomplicated
CPT/HCPCS: 36415; 80053; 81001; 81025; 85025; 87077; 87086; 87088; 87186; 99283

== ENCOUNTER 2022-03-27 09:41 | Emergency (ER) | payer OTHER, SELFPAY ==
[2022-03-27] VITALS (12 sets, daily range): BP systolic 115–138; BP diastolic 85–92; PULSE 77–101; RESP 11–26; TEMP 36.7; O2SAT 93–98
--- NOTE | ~2022-03-27 | XR_ITS ---
EXAMINATION: XR chest 1V portable DATE: 03/27/2022 10:13 INDICATION: Chest pressure. TECHNIQUE: A single frontal view of the chest was obtained. COMPARISON: Chest 2 views 07/22/20, chest CT 09/18/2020 FINDINGS: The chest demonstrates clear lungs without pneumonia, pleural effusion, or pneumothorax. Th e heart size is normal. Breast implants are noted. IMPRESSION: 1. No acute cardiopulmonary disease. Reviewed, dictated and finalized at location A.
--- NOTE | 2022-03-27 09:49 | ECG_ITS ---
Measurements Intervals [place] Rate: 102 P: 73 IL: 140 QRS: 98 QRSD: 90 T: 60 QT: 319 QTc: 416 Interpretive Statements SINUS TACHYCARDIA RIGHT AXIS DEVIATION LEFT ATRIAL ENLARGEMENT INCOMPLETE RIGHT BUNDLE BRANCH BLOCK BASELINE ARTIFACT- I, II, III, AVR, AVL, AVF, V1-V6 BORDERLINE ECG Electronically Signed On 03-27-2022 11:55:53 CDT by Shawn Yi D.O.
[2022-03-27 10:03] LABS: Basophils Percent Auto 0.4 % (0.2-1.2); Eosinophils Absolute Auto 0.1 K/mm3 (0-0.3); Eosinophils Percent Auto 0.6 % (0-4.4); Hematocrit 47.1 % (37.0-47.0); Hemoglobin 15.7 g/dL (12.0-15.0); Immature Granulocyte Absolute 0.02 K/mm3 (0.00-0.031); Immature Granulocyte Percent A 0.2 % (0-0.5); Lymphocytes Absolute Auto 4.97 K/mm3 (0.9-3.2); Lymphocytes Percent Auto 48.1 % (18.3-44.2); Mean Corpuscular HGB Conc 33.3 g/dl (32-36); Mean Corpuscular Hemoglobin 29.9 pg (26-34); Mean Corpuscular Volume 89.7 fl (80-100); Mean Platelet Volume 10.6 fl (7.4-10.4); Monocytes Absolute Auto 0.7 K/mm3 (0.1-0.6); Monocytes Percent Auto 6.4 % (2.6-8.5); Neutrophils Absolute Auto 4.6 K/mm3 (1.3-6.7); Neutrophils Percent Auto 44.3 % (45.5-73.1); Platelet Count Result 328 k/mm3 (150-375); Red Blood Count 5.25 M/mm3 (4.2-5.4); Red Cell Distribution Width 12.7 % (11.5-14.5); White Blood Count 10.3 K/mm3 (4.5-10.0)
[2022-03-27] MEDS: ASPIRIN 81 MG CHEWABLE TABLET 324 MG PO (10:03)
[2022-03-27] MEDS: LORazepam INJ (*CRX) 2 MG/ML VIAL 0.5 MG IV PUSH (10:04)
--- NOTE | 2022-03-27 10:12 | ED.SOB ---
HPI - SOB/Dyspnea General Chief Complaint: Shortness of Breath/Dyspnea Stated Complaint: chest pain, SOB Time Seen by Provider: 03/27/22 09:44 History of Present Illness HPI Narrative: 61-year-old female presents emergency room second shortness of breath. States he went to work today in her normal state of health. As she was working she all of a sudden developed a sensation that she could not breathe. Has some discomfort in her chest associated with this. She states she has had a prior history of a blood clot . That happened suddenly at that time as well. Had no swelling in her legs. She denies any cardiac history. She denies any exertional chest pain or shortness of breath lately. She does smoke. She has had no cough or congestion. No chills or fevers. She is extremely anxious at this point as well. Denies any prior history of panic attacks. Related Data Home Medications Medication Instructions Recorded Confirmed No Home Medications 08/23/21 08/23/21 Allergies Allergy/AdvReac Type Severity Reaction Status Date / Time meperidine [From Demerol] Allergy Intermediate Swelling Verified 03/27/22 09:51 Review of Systems Review of Systems: CONSTITUTIONAL: Denies fever, chills, or sweats. EYES: Denies visual changes, redness, or discharge. ENT: Denies rhinorrhea, congestion, sore throat, or otalgia. CARDIOVASCULAR: some nonspecific discomfort in her chest RESPIRATORY: Feels extremely short of breath at this time. GASTROINTESTINAL: Denies abdominal pain, nausea, vomiting, or diarrhea. GENITOURINARY: Denies dysuria or hematuria. SKIN: Denies rash or itching. MUSCULOSKELETAL: Denies back pain, joint pain, or myalgia. No leg swelling NEUROLOGIC: Denies headache, numbness, or weakness. PSYCHIATRIC: Denies anxiety or depression. [facility] Past Medical History Medical History Diverticulitis Lower abdominal pain Surgical History Surgical History History of section, classical History of hysterectomy History of tubal ligation Family History Family History Grandparent Diabetes mellitus S/P CABG (coronary artery bypass graft) Hypertension Father Heart disease Hypertension Mother Cancer Social History Social History Smoking status: Current every day smoker Alcohol intake: unknown Substance use: unknown Gender identity (if verbalized by the patient): Female Spiritual care concerns: No Exam Narrative: APPEARANCE: Patient appears extremely anxious Head normocephalic and atraumatic. EYES: PERRLA/EOMI, conjunctivae very clear. NOSE: Normal with no drainage EARS:TMS clear Celsa Lopez, with good light reflex. THROAT: Pharynx clear, no exudate. NECK: Supple. No adenopathy, no masses. RESPIRATORY: Airway patent, respirations nonlabored. Clear to auscultation bilaterally, no rales, rhonchi, wheezing. Tachypneic CARDIOVASCULAR: Regular rate and rhythm without murmurs, rubs, or gallops. ABDOMINAL: Soft, nontender, nondistended, no hepatosplenomegaly Musculoskeletal: Moves all extremities. Strength/ROM intact, No edema, No calf tenderness. NEURO: Alert. Cranial nerves II through XII intact. Normal gait. Good coordination. Nonfocal examination. SKIN:: Warm, dry. Normal Color PSYCHIATRIC: Anxious Course Vital Signs Vital signs: Vital Signs Temperature 98.0 F 03/27/22 09:45 Pulse Rate 92 03/27/22 09:45 Respiratory Rate 24 H 03/27/22 09:45 Blood Pressure 115/87 03/27/22 09:45 Pulse Oximetry 97 03/27/22 09:45 Oxygen Delivery Room Air 03/27/22 09:45 Temperature 98.0 F 03/27/22 09:45 Pulse Rate 77 03/27/22 11:45 Respiratory Rate 24 H 03/27/22 11:45 Blood Pressure 128/92 H 03/27/22 11:45 Pulse Oximetry 97 03/27/22 11:45 Oxygen Delivery Room Air
[2022-03-27 10:13] LABS: Alanine Aminotransferase 21 U/L (6-35); Albumin Level 5.2 g/dL (3.5-5.1); Alkaline Phosphatase 81 U/L (38-126); Anion Gap 10 mmol/L (8-16); Aspartate Amino Transferase 24 U/L (14-36); Bilirubin,Total 0.6 mg/dL (0.2-1.3); Blood Urea Nitrogen 17 mg/dL (7-17); Calcium 10.4 mg/dL (8.4-10.2); Carbon Dioxide 20 mmol/L (22-30); Chloride 107 mmol/L (98-107); Estimated CRCL calculation 40 ml/min; Estimated Glomerular Filt Rate 51; Glucose 124 mg/dL (65-110); Potassium 3.9 mmol/L (3.4-5.0); Sodium 137 mmol/L (137-145)
[2022-03-27 10:25] LABS: Troponin I < 0.012 ng/mL (0.000-0.034)
[2022-03-27 10:33] LABS: D Dimer < 0.27 ug/mL (<0.48)
[2022-03-27 10:39] LABS: SARS-CoV-2 RNA PCR Negative
[2022-03-27 13:03] LABS: Troponin I < 0.012 ng/mL (0.000-0.034)
== END 2022-03-27 13:49 | disposition home or self-care (01) ==
PROVIDERS: Emergency Provider Emergency Medicine
DX: F41.9 Anxiety disorder, unspecified (principal); R07.89 Other chest pain; R06.00 Dyspnea, unspecified; R00.0 Tachycardia, unspecified; Z20.822 Contact with and (suspected) exposure to COVID-19
CPT/HCPCS: 36415; 71045; 80053; 84484; 85025; 85380; 93005; 96374; 99284; A9270; C9803; J2060; U0003; U0005

== ENCOUNTER 2022-07-20 01:39 | Day surgery (SDC) | payer OTHER, SELFPAY ==
[2022-07-11 13:17] VITALS: BMI 18.7
--- NOTE | 2022-07-19 15:27 | PM.HPGS ---
History of Present Illness History of Present Illness Consent: Risks, benefits, and alternatives have been discussed and questions answered. Patient agrees to proceed with procedure. Chief complaint: neoplasm screening Narrative: Bekah Dimas is a 61 year old female Who was referred for colon cancer screening. Review of Systems Review of Systems: All systems reviewed & are unremarkable except as noted in HPI and below PMFSH Past Medical History Medical History Diverticulitis Lower abdominal pain Surgical History Surgical History History of section, classical History of hysterectomy History of tubal ligation Family History Family History Grandparent Diabetes mellitus S/P CABG (coronary artery bypass graft) Hypertension Father Heart disease Hypertension Mother Cancer Social History Social History Smoking packs per day: 0.5 Smoking cigarettes per day: 10.0 Years smoked: 25 Smoking pack-years: 12.50 Smoking status: Current every day smoker Tobacco type: cigarettes Alcohol intake: current Alcohol use details: socially but rare Substance use: current Substance use type: does not use Living arrangements: alone Gender identity (if verbalized by the patient): Female Spiritual care concerns: No Meds Home Medications and Allergies Home Medications Medication Instructions Recorded Confirmed Type bupropion HCl 150 mg tablet,12 hr 150 mg PO QAM #30 tabs 04/02/22 07/11/22 Rx sustained-release (Wellbutrin SR) oxybutynin chloride 5 mg tablet 5 mg PO DAILY #30 tabs 04/02/22 07/11/22 Rx Allergies Allergy/AdvReac Type Severity Reaction Status Date / Time meperidine [From Demerol] Allergy Intermediate Swelling Verified 07/20/22 10:14 Exam Const: General: alert Orientation/consciousness: patient oriented x3 Resp: Auscultation: clear to auscultation bilaterally Cardio: Rhythm: regular rhythm GI: GI Palp: Yes Soft to palpation and No Tenderness to palpation present (GI) Neuro: General: patient oriented x3 Assessment and Plan Assessment and plan (1) Colon cancer screening: Code(s): Z12.11 - Encounter for screening for malignant neoplasm of colon Status: Acute Assessment and Plan: Colonoscopy with possible biopsy or polypectomy or cautery or injection of substances.
[2022-07-20 10:16] VITALS: BP 117/61; PULSE 90; RESP 18; TEMP 36.4; O2SAT 99
[2022-07-20] MEDS: LACTATED RINGERS 1,000 ML 150 ML IV CONT (10:26)
--- NOTE | 2022-07-20 10:48 | P.PNAN_ITS ---
Anes - Initial Pre Proc Eval Procedure: Operation Date: 07/20/22 11:15 Proposed Procedures p Screening Colonoscopy - Bryson aSleh MD Date/Time: 07/20/22 10:48 Surgeon: Bryson Saleh MD Pre Op Diagnosis: neoplasm screening Patient Data Age: 61 Gender: F Height: 1.65 m Weight: 51.4 kg Last Vital Signs Temp 97.6 F 07/20/22 10:16 Pulse 90 07/20/22 10:16 Resp 18 07/20/22 10:16 BP 117/61 07/20/22 10:16 Pulse Ox 99 07/20/22 10:16 O2 Del Method Room Air 07/20/22 10:16 Allergies Allergy/AdvReac Type Severity Reaction Status Date / Time meperidine [From Demerol] Allergy Intermediate Swelling Verified 07/20/22 10:14 Home Medications Medication Instructions Recorded Confirmed Type bupropion HCl 150 mg tablet,12 hr 150 mg PO QAM #30 tabs 04/02/22 07/11/22 Rx sustained-release (Wellbutrin SR) oxybutynin chloride 5 mg tablet 5 mg PO DAILY #30 tabs 04/02/22 07/11/22 Rx Patient hx anesthesia problems: none Family hx anesthesia problems: none Results Review: All pre-operative results and documents have been reviewed as part of the pre- operative evaluation. [facility] Past Medical History Medical History Diverticulitis Lower abdominal pain Surgical History Surgical History History of section, classical History of hysterectomy History of tubal ligation Family History Family History Grandparent Diabetes mellitus S/P CABG (coronary artery bypass graft) Hypertension Father Heart disease Hypertension Mother Cancer Social History Social History (Updated 04/02/22 @ 14:17 by Jennifer Littlejohn CMA) Smoking packs per day: 0.5 Smoking cigarettes per day: 10.0 Years smoked: 25 Smoking pack-years: 12.50 Smoking status: Current every day smoker Tobacco type: cigarettes Alcohol intake: current Alcohol use details: socially but rare Substance use: current Substance use type: does not use Living arrangements: alone Gender identity (if verbalized by the patient): Female Spiritual care concerns: No Anes - Eval Final PreProcedure Day of Procedure 07/20/22 10:48 Patient weight: normal Heart: regular rate and rhythm Lungs: clear to auscultation Airway: Mallampati scale class II Neurological: alert and oriented Last oral intake: >/= 8 hours ASA classification: II Emergent: no Anesthetic plan: proceed Anesthesia type and monitoring: general GIVS and standard monitoring Results Review: All pre-operative results and documents have been reviewed as part of the pre- operative evaluation. Informed Consent: The patient's anesthetic plan and its attendant risks and benefits were discussed with the patient/family/POA. Questions were solicited and answers provided to the satisfaction of the patient/family/POA.
[2022-07-20 11:18] VITALS: BP 104/60; PULSE 72; RESP 24; O2SAT 99
[2022-07-20 11:28] VITALS: BP 107/66; PULSE 66; RESP 22; O2SAT 98
[2022-07-20 11:38] VITALS: BP 109/76; PULSE 71; RESP 20; O2SAT 100
== END 2022-07-20 11:53 | disposition home or self-care (01) ==
PROVIDERS: PCP Internal Medicine; Visit Provider Internal Medicine Gastroenterology
PROC: 0DJD8ZZ Inspection of Lower Intestinal Tract, Via Natural or Artificial Opening Endoscopic (ICD-10-PCS; CPT 45378; principal; 2022-07-20 11:15)
DX: Z12.11 Encounter for screening for malignant neoplasm of colon (principal); D12.8 Benign neoplasm of rectum; K57.30 Diverticulosis of large intestine without perforation or abscess without bleeding; K64.8 Other hemorrhoids; K64.4 Residual hemorrhoidal skin tags; F17.210 Nicotine dependence, cigarettes, uncomplicated
CPT/HCPCS: 45380; 45385; 88305; J2001; J2704; J7120

== ENCOUNTER 2022-10-03 16:30 | Outpatient (CLI) | payer OTHER, SELFPAY ==
--- NOTE | ~2022-10-03 | MM_ITS ---
EXAMINATION: MM scrn luiz implant BI w tano HISTORY: Screening mammogram TECHNIQUE: Craniocaudal and mediolateral oblique 3-D tomosynthesis images with implant displacement a nd synthetic 2-D images were generated. Craniocaudal and mediolateral oblique views of the breasts wi thout implant displacement were obtained using full field digital mammography. CAD analysis was submi tted and interpreted. COMPARISON: 09/29/2019, 08/27/2019 BREAST PARENCHYMAL COMPOSITION: The breasts are heterogeneously dense, which may obscure small masses . FINDINGS: There is no evidence of suspicious mass, calcification, or architectural distortion to sugg est malignancy in either breast. There has been no suspicious interval change. IMPRESSION: 1. No mammographic evidence of malignancy. 2. Recommend routine screening mammography in one year. BI-RADS Category 1: Negative Reviewed, dictated and finalized at location A. [employer]
== END 2022-10-03 16:31 | disposition home or self-care (01) ==
LOC: ANHIMG 16:32
PROVIDERS: PCP Internal Medicine; Visit Provider Internal Medicine
DX: Z12.31 Encounter for screening mammogram for malignant neoplasm of breast (principal)
CPT/HCPCS: 77063; 77067

== ENCOUNTER 2023-02-03 23:09 | Emergency (ER) | payer OTHER, SELFPAY ==
--- NOTE | ~2023-02-03 | XR_ITS ---
EXAMINATION: XR ribs LT 2V DATE: 02/03/2023 23:31 INDICATION: Left chest pain. Injury. TECHNIQUE: 2 views of the left ribs on 3 radiographs were obtained. COMPARISON: Chest single view 03/27/2022, chest CT 09/18/2020 FINDINGS: There is no left-sided pneumonia, pleural effusion, or pneumothorax. The heart size is norm al. There are fracture deformities of left sixth and seventh ribs. There are bilateral breast implant s. IMPRESSION: 1. Age-indeterminate fracture deformities of left sixth and seventh ribs. Reviewed, dictated and finalized at location A.
[2023-02-03 23:12] VITALS: BP 139/77; PULSE 90; RESP 14; TEMP 36.6; O2SAT 99
--- NOTE | 2023-02-04 00:45 | PC.NURSE ---
pt. to desk monitor stating I need to go home. I am just going to go to another hospital.
== END 2023-02-04 00:52 | disposition left against medical advice (07) ==
PROVIDERS: Emergency Provider Emergency Medicine
DX: R07.81 Pleurodynia (principal)
CPT/HCPCS: 71100; 99199

== ENCOUNTER 2023-02-12 15:30 | Emergency (ER) | payer OTHER, SELFPAY ==
--- NOTE | ~2023-02-12 | CT_ITS ---
EXAMINATION: CT diagnostic chest wo con DATE: 02/12/2023 20:14 INDICATION: rib fractures, pain TECHNIQUE: Computed tomography (CT) of the chest was performed with 100 mL Omnipaque-350 intravenous contrast. Automated exposure control and iterative reconstruction technique were employed. The dose-l ength product was 126.62 mGy-cm. COMPARISON: X-ray RIBS 02/03/2023; CTPA 09/18/2020. FINDINGS: CHEST: Thoracic aorta: No significant dilation or calcification. Lung parenchyma and airways: Mild right apical pleural scarring. Mild scattered diffuse tree-in-bud o pacities. Thoracic inlet, axillae and chest wall: No thyroid or soft tissue mass. No axillary lymphadenopathy. Bilateral breast implants. Mediastinum: No mass or lymphadenopathy. Heart and pericardium: Normal heart size. No pericardial effusion. Coronary artery calcifications: Absent. Pleura: No effusion or mass. Upper abdomen: No significant finding. Thoracic bones: No acute osseous finding in the chest. IMPRESSION: No acute thoracic process. Specifically, no acute rib fractures are detected. Reviewed, dictated and finalized at location K.
[2023-02-12 16:42] VITALS: BP 129/62; PULSE 95; RESP 16; TEMP 36.4; O2SAT 98
[2023-02-12 18:37] VITALS: RESP 17; O2SAT 99
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
--- NOTE | 2023-02-12 19:05 | ECG_ITS ---
Measurements Intervals [place] Rate: 66 P: 9 WA: 151 QRS: 85 QRSD: 93 T: 60 QT: 380 QTc: 401 Interpretive Statements SINUS RHYTHM WITH SINUS ARRHYTHMIA INCOMPLETE RIGHT BUNDLE BRANCH BLOCK BORDERLINE ECG COMPARED TO ECG 03/27/2022 09:46:42 SINUS RHYTHM NOW PRESENT SINUS ARRHYTHMIA NOW PRESENT Electronically Signed On 02-13-2023 8:04:38 CDT by Shawn Yi D.O.
[2023-02-12] MEDS: KETOROLAC 15 MG/ML VIAL (*BKC) IV PUSH (19:22)
[2023-02-12] MEDS: ACETAMINOPHEN 500 MG TABLET 1000 MG PO (19:22)
[2023-02-12 19:36] LABS: Basophils Absolute Auto 0.1 K/mm3 (0.0-0.1); Basophils Percent Auto 0.6 % (0.2-1.2); Eosinophils Absolute Auto 0.1 K/mm3 (0-0.3); Eosinophils Percent Auto 1.1 % (0-4.4); Hematocrit 46.2 % (37.0-47.0); Hemoglobin 15.5 g/dL (12.0-15.0); Immature Granulocyte Absolute 0.04 K/mm3 (0.00-0.031); Immature Granulocyte Percent A 0.3 % (0-0.5); Lymphocytes Absolute Auto 4.12 K/mm3 (0.9-3.2); Lymphocytes Percent Auto 33.7 % (18.3-44.2); Mean Corpuscular HGB Conc 33.5 g/dl (32-36); Mean Corpuscular Hemoglobin 30.7 pg (26-34); Mean Corpuscular Volume 91.5 fl (80-100); Mean Platelet Volume 10.8 fl (7.4-10.4); Monocytes Absolute Auto 0.8 K/mm3 (0.1-0.6); Monocytes Percent Auto 6.5 % (2.6-8.5); Neutrophils Absolute Auto 7.1 K/mm3 (1.3-6.7); Neutrophils Percent Auto 57.8 % (45.5-73.1); Platelet Count Result 298 k/mm3 (150-375); Red Blood Count 5.05 M/mm3 (4.2-5.4); Red Cell Distribution Width 12.9 % (11.5-14.5); White Blood Count 12.2 K/mm3 (4.5-10.0)
[2023-02-12 19:44] LABS: Alanine Aminotransferase 24 U/L (6-35); Albumin Level 4.6 g/dL (3.5-5.1); Alkaline Phosphatase 74 U/L (38-126); Anion Gap 7 mmol/L (8-16); Aspartate Amino Transferase 38 U/L (14-36); Bilirubin,Total 0.3 mg/dL (0.2-1.3); Blood Urea Nitrogen 11 mg/dL (7-17); Calcium 9.6 mg/dL (8.4-10.2); Carbon Dioxide 26 mmol/L (22-30); Chloride 107 mmol/L (98-107); Estimated CRCL calculation 68 ml/min; Estimated Glomerular Filt Rate > 60; Glucose 120 mg/dL (65-110); Potassium 3.9 mmol/L (3.4-5.0); Sodium 140 mmol/L (137-145)
[2023-02-12 19:55] LABS: NT Pro B Type Natriuretic Pept < 20 pg/mL (19.9-100); Troponin I < 0.012 ng/mL (0.000-0.034)
[2023-02-12 19:59] LABS: D Dimer < 0.27 ug/mL (<0.48)
== END 2023-02-12 21:38 | disposition home or self-care (01) ==
PROVIDERS: Emergency Provider Physician Assistant
DX: S20.212A Contusion of left front wall of thorax, initial encounter (principal); Z90.710 Acquired absence of both cervix and uterus; F17.210 Nicotine dependence, cigarettes, uncomplicated; I45.10 Unspecified right bundle-branch block; W51.XXXA Accidental striking against or bumped into by another person, initial encounter
CPT/HCPCS: 36415; 71250; 80053; 83880; 84484; 85025; 85380; 93005; 96374; 99284; A9270; J1885

== ENCOUNTER 2023-10-25 14:20 | Outpatient (CLI) | payer OTHER, SELFPAY ==
--- NOTE | ~2023-10-25 | XR_ITS ---
EXAMINATION: XR ribs LT 2V DATE: 10/25/2023 14:44 INDICATION: Pleurodynia. Left chest pain. TECHNIQUE: 2 views of the left ribs on 4 radiographs were obtained. COMPARISON: Left rib radiographs 02/03/2023, chest CT 02/12/2023 FINDINGS: There is no left-sided pneumonia, pleural effusion, or pneumothorax. The heart size is norm al. Breast implants are noted. IMPRESSION: 1. No acute rib fracture. Reviewed, dictated and finalized at location E. H LAYER IMPRESSION: 1. No acute rib fracture.
== END 2023-10-25 14:21 | disposition home or self-care (01) ==
PROVIDERS: PCP Physician Assistant; Visit Provider Physician Assistant
DX: R07.81 Pleurodynia (principal)
CPT/HCPCS: 71100

== ENCOUNTER 2023-11-06 13:31 | Outpatient (RCR) | payer OTHER, SELFPAY ==
--- NOTE | 2023-11-06 14:38 | OPREHPOC ---
Outpatient Therapy Plan of Care This is a Multidisciplinary Plan of Care that may contain components documented by all disciplines (PT, OT, and ST.) PT Problem 1 PT Problem #1 Knowledge Deficit PT Goal 1 Goal 1. Pt will perform independent HEP 2. Pt will verbalize urge suppression strategies Target Visit 3 PT Problem 2 PT Problem #2 Impaired Functional ADLs PT Goal 1 Goal 1. Pt will report no more than 1 instance of incontinence per day 2. Pt will void no more than 8 times in a 24 hour period Target Visit 6 PT Problem 3 PT Problem #3 Impaired Strength PT Goal 1 Goal 1. Improve pelvic floor strength to 4/5 to decrease incontinence 2. Improve pelvic floor endurance to 10 seconds to decrease incontinence
--- NOTE | 2023-11-06 14:38 | PTOPEVAL1 ---
Assessment and note entered by Caitlin Morris DPT Evaluation Information Assessment Status Evaluation Subjective Information Pt reports urinary incontinence that has worsened over the last few years. Wears a pad regularly and sometimes avoids fluids. Voids 12 times a day and is up every 2 hours at night. Incontinence just as many times throughout the day. Occurs with coughing, sneezing, lifting, moving, and on the way to the bathroom before she can pull her pants down. Denies pain with urination. BM at least once a day, without pain. Denies history of pelvic pain. Total hysterectomy in 1991. Pt has been 3 times, 2 deliveries both vaginal ( tearing with one of them). States she has always had a weak bladder . Returns to [place] in 2 months. Patient goal: hold urine better, avoid leaking. States she does not always want to go out in the community due to wearing a pad. Does not go swimming. Pt is retired. Reported Pain Level Pain Score 0: Self Report Plan of Care Interventions Manual Therapy,Neuro Re-education,Patient/ Caregiver Education,Therapeutic Activities, Therapeutic Exercise PT Services Indicated Yes Treatment Frequency and 1 time a week for 6 visits Duration These treatments will address the objective and functional deficits as defined above. The patient will be advanced safely and appropriately in order for the patient to progress towards his/her prior level of function. Additional exercises will be introduced and as well as a comprehensive home exercise program upon discharge, if needed, ?to ensure carryover of functional gains achieved in the clinic. This treatment plan has been reviewed and agreement upon by the patient.
--- NOTE | 2023-11-12 12:08 | PCPTNOTE ---
Patient called to cancel appointment on 11/12/23 due to illness.
--- NOTE | 2023-11-19 13:52 | PCPTNOTE ---
Pt did not show up for appointment on 11/19/23. Left voicemail for patient to reschedule.
--- NOTE | 2023-11-28 13:52 | PCPTNOTE ---
Patient did not show up for visit scheduled 11/28/23. Therapist called patient who stated she had left a voicemail cancelling this appointment due to illness.
--- NOTE | 2023-12-05 14:25 | PCPTNOTE ---
Patient did not show up for appointment today.
--- NOTE | 2023-12-12 15:04 | PTOPDC ---
Assessment and note entered by Caitlin Morris DPT Evaluation Information Assessment Status Discharge - Pt Not Present Subjective Information - Assessment PT Clinical Summary Patient has not attended therapy since the evaluation, has cancelled or no showed 5 visits. She will be discharged this date. Plan of Care PT Services Indicated No
== END 2023-12-13 08:19 | disposition home or self-care (01) ==
LOC: ANHPT 13:31
PROVIDERS: PCP Physician Assistant; Visit Provider Physician Assistant
DX: N39.46 Mixed incontinence (principal)
CPT/HCPCS: 97110; 97161; 99199

== ENCOUNTER 2023-11-21 15:51 | Outpatient (CLI) | payer OTHER, SELFPAY ==
--- NOTE | ~2023-11-21 | MM_ITS ---
EXAMINATION: MM scrn luiz implant BI w tano HISTORY: Screening mammogram TECHNIQUE: Craniocaudal and mediolateral oblique 3-D tomosynthesis images with implant displacement a nd synthetic 2-D images were generated. Craniocaudal and mediolateral oblique views of the breasts wi thout implant displacement were obtained using full field digital mammography. CAD analysis was submi tted and interpreted. COMPARISON: 10/03/2022 bilateral implant screening mammogram 09/29/2019 right diagnostic implant mammogram and complete right breast ultrasound examination 08/27/2019 bilateral implant screening mammogram BREAST PARENCHYMAL COMPOSITION: The breasts are heterogeneously dense, which may obscure small masses . FINDINGS: Status post bilateral augmentation mammoplasty. There are scattered bilateral benign calcif ications. There is no evidence of suspicious mass, calcification, or architectural distortion to sugg est malignancy in either breast. There has been no suspicious interval change. IMPRESSION: 1. No mammographic evidence of malignancy. 2. Recommend routine screening mammography in one year. BI-RADS Category 2: Benign finding(s). Reviewed, dictated and finalized at location A. MOTIVE [employer]S COUNTER PERSON
--- NOTE | ~2023-11-21 | CT_ITS ---
EXAMINATION:CT lung screening DATE: 11/21/2023 16:13 INDICATION: Personal history of nicotine dependence. Current smoker with 30 pack year history. TECHNIQUE: Computed tomography (CT) of the chest was performed without intravenous contrast. Automate d exposure control and iterative reconstruction technique were employed. The dose-length product (DLP ) was 58.19 mGy-cm. COMPARISON: Chest CT 02/12/2023 FINDINGS: There is mild atelectasis bilaterally. Calcified right lung nodules are consistent with old granulomatous disease. There is mild scarring at the lung apices. No pleural effusion. The heart siz e is normal. No pericardial effusion. Breast implants are noted. There is mild thoracic spondylosis. IMPRESSION: 1. Lung-RADS category 2: Benign appearance or behavior. Continue annual screening with noncontrast lo w-dose chest CT in 12 months. Reviewed, dictated and finalized at location E. LER CHIEF IMPRESSION: 1. Lung-RADS category 2: Benign appearance or behavior. Continue annual screeni ng with noncontrast low-dose chest CT in 12 months.
== END 2023-11-21 15:52 | disposition home or self-care (01) ==
PROVIDERS: PCP Physician Assistant; Visit Provider Physician Assistant
DX: Z12.31 Encounter for screening mammogram for malignant neoplasm of breast (principal); F17.200 Nicotine dependence, unspecified, uncomplicated
CPT/HCPCS: 71271; 77063; 77067

== ENCOUNTER 2024-09-02 12:58 | Emergency (ER) | payer OTHER, SELFPAY ==
--- NOTE | ~2024-09-02 | CT_ITS ---
CT abdomen pelvis wo con Ordering provider: Kenneth Oliveros MD History: 63 years Female with . hematuria, L flank pain . Comparison: None. Technique: CT abdomen and pelvis without IV and without oral contrast. Automated exposure control and iterative reconstruction technique were employed. The dose-length product was 188.07 mGy-cm. Findings: Bilateral breast implants. VISUALIZED LOWER CHEST: Dependent atelectatic changes. UPPER ABDOMINAL ORGANS: Liver: Normal. Gallbladder: Normal. Spleen: Normal. Stomach/duodenum: Normal. Pancreas: Normal. Adrenals: Normal. Kidneys: Normal. PELVIC ORGANS: The bladder is normal. BOWEL AND MESENTERY: Colon: Thickened wall of the sigmoid colon which may indicate colitis versus diverticulitis. No surro unding fat stranding seen. No free air or abscess formation noted. Normal appendix. Small Bowel: Normal. No obstruction. Peritoneum/mesentery: No free air. Minimal free fluid seen in the left side of the pelvis.. No mesent xiao lymphadenopathy. RETROPERITONEUM: Mild atheromatous disease of the abdominal aorta. No retroperitoneal lymphadenopat hy. MUSCULOSKELETAL: Superficial soft tissues: The superficial soft tissues are normal. Bones: Age appropriate degenerative changes of the spine. Bilateral hip osteoarthritic changes. IMPRESSION: 1. No evidence of appendicitis or intestinal obstruction. 2. Thickened sigmoid colon which may indicate colitis versus diverticulitis. infiltrates process can not be excluded. Sigmoidoscopy is advised. 3. Minimal free fluid seen in the left side of the pelvis. Reviewed, dictated and finalized at location A. ROBE TECHNICIAN IMPRESSION: 1. No evidence of appendicitis or intestinal obstruction. 2. Thickened sigmoid colon which may indicate colitis versus diverticulitis. i nfiltrates process cannot be excluded. Sigmoidoscopy is advised. 3. Minimal free fluid seen in the left side of the pelvis.
[2024-09-02 13:08] VITALS: BP 142/82; PULSE 81; RESP 18; TEMP 36.6; O2SAT 98
[2024-09-02 14:06] LABS: Basophils Percent Auto 0.4 % (0.2-1.2); Eosinophils Absolute Auto 0.1 K/mm3 (0-0.3); Eosinophils Percent Auto 0.9 % (0-4.4); Hematocrit 43.1 % (37.0-47.0); Hemoglobin 14.5 g/dL (12.0-15.0); Immature Granulocyte Absolute 0.03 K/mm3 (0.00-0.031); Immature Granulocyte Percent A 0.3 % (0-0.5); Lymphocytes Absolute Auto 3.04 K/mm3 (0.9-3.2); Lymphocytes Percent Auto 31.1 % (18.3-44.2); Mean Corpuscular HGB Conc 33.6 g/dl (32-36); Mean Corpuscular Hemoglobin 30.3 pg (26-34); Mean Platelet Volume 10.4 fl (7.4-10.4); Monocytes Absolute Auto 0.7 K/mm3 (0.1-0.6); Monocytes Percent Auto 7.4 % (2.6-8.5); Neutrophils Absolute Auto 5.9 K/mm3 (1.3-6.7); Neutrophils Percent Auto 59.9 % (45.5-73.1); Platelet Count Result 260 k/mm3 (150-375); Red Blood Count 4.79 M/mm3 (4.2-5.4); Red Cell Distribution Width 12.8 % (11.5-14.5); White Blood Count 9.8 K/mm3 (4.5-10.0)
--- NOTE | 2024-09-02 14:08 | ED_ITS ---
HPI - General Adult General Chief complaint: Urogenital-Female Stated complaint: L. flank pain, polyuria Time Seen by Provider: 09/02/24 13:42 History of Present Illness HPI narrative: 63-year-old female presenting to the emergency department for evaluation for urinary symptoms. patient reports he has had left flank pain that radiates around her left lower quadrant. Patient states she does have some sharp pain intermittently but denies any pain with urination or burning with urination. Patient at denies any prior history of kidney stones. At time of evaluation patient declined any medications for pain control. Related Data Allergies Allergy/AdvReac Type Severity Reaction Status Date / Time meperidine (From Demerol) Allergy Intermediate Swelling Verified 09/02/24 13:00 Review of Systems 2 Review of Systems: All systems reviewed & are unremarkable except as noted in HPI and below PMFSH Past Medical History Medical History Diverticulitis Lower abdominal pain Surgical History Surgical History History of section, classical History of hysterectomy History of tubal ligation Family History Family History Grandparent Diabetes mellitus S/P CABG (coronary artery bypass graft) Hypertension Father Heart disease Hypertension Mother Cancer Social History Social History Smoking packs per day: 0.5 Smoking cigarettes per day: 10.0 Years smoked: 25 Smoking pack-years: 12.50 Smoking status: Current every day smoker Tobacco type: cigarettes Alcohol intake: current Alcohol use details: socially but rare Substance use: current Substance use type: does not use Living arrangements: alone Gender identity (if verbalized by the patient): Female Spiritual care concerns: No Exam 2 Narrative: APPEARANCE: Well appearing, no pain, no distress, well-nourished. HEAD: normocephalic, atraumatic. EYES: PERRLA/EOMI, conjunctivae clear. NOSE: Normal no drainage EARS:TMS clear with good light reflex. THROAT: Pharynx clear, no exudate. NECK: Supple. No adenopathy, no masses. RESPIRATORY: Airway patent, respirations nonlabored. Clear to auscultation bilaterally, no rales, rhonchi, wheezing. CARDIOVASCULAR: Regular rate and rhythm without murmurs rubs or gallops. ABDOMINAL: Left CVA and left lower back tenderness to palpation, no suprapubic tenderness to palpation MUSCULOSKELETAL: Moves all extremities. Strength/ROM intact, No edema, No calf tenderness. NEURO: Alert. Cranial nerves II through XII intact. SKIN: Warm, dry. Normal Color Course Vital Signs Vital signs: Vital Signs Temperature 98 F 09/02/24 13:08 Pulse Rate 81 09/02/24 13:08 Respiratory Rate 18 09/02/24 13:08 Blood Pressure 142/82 H 09/02/24 13:08 Pulse Oximetry 98 09/02/24 13:08 Oxygen Delivery Room Air 09/02/24 13:08 Temperature 98 F 09/02/24 13:08 Pulse Rate 73 09/02/24 15:26 Respiratory Rate 18 09/02/24 15:32 Blood Pressure 143/85 H 09/02/24 15:26 Pulse Oximetry 100 09/02/24 15:32 Oxygen Delivery Room Air 09/02/24 13:08 Medical Decision Making MDM Narrative Medical decision making narrative: 63-year-old female presenting to the emergency department for evaluation for left flank pain. Patient is afebrile with no leukocytosis and hemoglobin of 14.5. Patient's UA did have positive leukocyte esterase blood and greater 100 white blood cells +[address] scan was ordered to evaluate for underlying kidney stone and CT scan was negative for ureteral calculi. CT scan possible diverticulitis. Patient was started Cipro Flagyl to cover both UTI and diverticulitis. Patient was comfortable plan for discharge and close follow-up. Differential Diagnosis Differential Diagnosis: Colitis, diverticulitis, ureteral calculi, urinary tract infection, urinary retention Vital Signs Vital Signs: Vital Signs Temperature 98 F 09/02/24 13:08 Pulse Rate 81 09/02/24 13:08 Respiratory Rate 18 09/02/24 13:08 Blood Pressure 142/82 H 09/02/24 13:08 Pulse Oximetry 98 09/02/24 13:08 Oxygen Delivery Room Air 09/02/24 13:08 Temperature 98 F 09/02/24 13:08 Pulse Rate 73 09/02/24 15:26 Respiratory Rate 18 09/02/24 15:32 Blood Pressure 143/85 H 09/02/24 15:26 Pulse Oximetry 100 09/02/24 15:32 Oxygen Delivery Room Air 09/02/24 13:08 Lab Data Lab results reviewed: Yes I reviewed the patient's lab results. 09/02/24 13:57 09/02/24 13:57 Labs: Lab Results 09/02/24 Range/Units 13:57 WBC 9.8 (4.5-10.0) K/mm3 RBC 4.79 (4.2-5.4) M/mm3 Hgb 14.5 (12.0-15.0) g/dL Hct 43.1 (37.0-47.0) % MCV 90.0 (80-100) fl MCH 30.3 (26-34) pg MCHC 33.6 (32-36) g/dl RDW 12.8 (11.5-14.5) % Plt Count 260 (150-375) k/mm3 MPV 10.4 (7.4-10.4) fl Immature Gran % (Auto) 0.3 (0-0.5) % Neut % (Auto) 59.9 (45.5-73.1) % Lymph % (Auto) 31.1 (18.3-44.2) % [place] % (Auto) 7.4 (2.6-8.5) % Eos % (Auto) 0.9 (0-4.4) % Baso % (Auto) 0.4 (0.2-1.2) % Lymph # (Auto) 3.04 (0.9-3.2) K/mm3 [place] # (Auto) 0.7 H (0.1-0.6) K/mm3 Eos # (Auto) 0.1 (0-0.3) K/mm3 Baso # (Auto) 0.0 (0.0-0.1) K/mm3 Abs Immat Gran (auto) 0.03 (0.00-0.031) K/mm3 Absolute Neuts (auto) 5.9 (1.3-6.7) K/mm3 Absolute Nucleated RBC 0.000 (0.0-0.012) K/mm3 Nucleated RBC % 0.0 (0.0-0.2) % Sodium 139 (137-145) mmol/L Potassium 3.7 (3.4-5.0) mmol/L Chloride 114 H (98-107) mmol/L Carbon Dioxide 23 (22-30) mmol/L Anion Gap 2 L (4-12) mmol/L BUN 10 (7-17) mg/dL Creatinine 0.60 L (0.7-1.0) mg/dL Estim Creat Clear Calc 72 ml/min Estimated GFR > 60 (59 - ) Glucose 121 H (65-110) mg/dL Calcium 9.8 (8.4-10.2) mg/dL Total Bilirubin 0.5 (0.2-1.3) mg/dL AST 27 (14-36) U/L ALT 22 (6-35) U/L Alkaline Phosphatase 65 (38-126) U/L Total Protein 7.0 (6.3-8.2) g/dL Albumin 4.4 (3.5-5.1) g/dL Urine Color Yellow (Yellow) Urine Appearance Cloudy H (Clear) Urine pH 7.5 (5.0-9.0) Ur Specific [place] 1.014 (1.001-1.035) Urine Protein Negative (Negative) mg/dL Urine Glucose (UA) Negative (Negative) mg/dL Urine Ketones Negative (Negative) mg/dL Ur Blood (Man) Non-hemolyzed trace H (Negative) Urine Nitrate Negative (Negative) Urine Bilirubin Negative (Negative) Urine Urobilinogen 0.2 (<2.0) mg/dL Leukocyte Esterase Rfl 2+ H (Negative) JESSICA/UL Urine RBC 6-10 H (0-2) /hpf Urine WBC >100 H (0-3) /hpf Ur Squamous Epith Cells Few (Few) /hpf Urine Bacteria 4+ H /hpf Urine Casts 0-2 Imaging Data Radiologist's impression: Impressions Abdomen/Pelvis CT 09/02/24 14:46 IMPRESSION: 1. No evidence of appendicitis or intestinal obstruction. 2. Thickened sigmoid colon which may indicate colitis versus diverticulitis. infiltrates process cannot be excluded. Sigmoidoscopy is advised. 3. Minimal free fluid seen in the left side of the pelvis. Discharge Plan Discharge Clinical Impression: UTI (urinary tract infection), Diverticulitis Patient Disposition: Home, Self-Care Condition: Stable Instructions: Antibiotic Form, Dysuria (ED), Colitis (ED) Additional Instructions: You are being started on antibiotics to cover both a urinary tract infection and a colitis /an infection your colon. antibiotics as directed until completed. Drink plenty of water. Have close follow-up with your primary care physician. Patient Language: Danish Prescriptions: New ciprofloxacin HCl [Cipro] 500 mg tablet 500 mg PO Q12H Qty: 14 0RF metronidazole 500 mg tablet 500 mg PO Q12H 7 Days Qty: 14 0RF phenazopyridine [Pyridium] 100 mg tablet 100 mg PO TID PRN (Reason: pain) Qty: 6 0RF No Action bupropion HCl [Wellbutrin SR] 150 mg tablet sustained-release 12 hr 150 mg PO QAM Qty: 30 3RF oxybutynin chloride 5 mg tablet 5 mg PO DAILY Qty: 30 3RF Follow-up/Referrals: Humberto,FOUZIA Gómez [Primary Care Provider] - Jim French MD [Physician] -
[2024-09-02 14:12] LABS: Add Urine Microscopic? YES; Appearance Urine Cloudy (Clear); Bacteria Urine 4+ /hpf; Bilirubin Urine Negative (Negative); Blood Urine Non-Hemolyzed Trace (Negative); Color Urine Yellow (Yellow); Glucose Urine UA Negative (Negative); Ketones Urine Negative (Negative); Leukocyte Esterase Ur 2+ LEU/UL (Negative); Nitrate Urine Negative (Negative); Non Pathogenic Casts 0-2; Protein Urine Negative (Negative); Specific Grav Ur 1.014 (1.001-1.035); Squamous Epithelial Cell Urine Few /hpf (Few); Urobilinogen Urine 0.2 mg/dL (<2.0); WBC Urine >100 /hpf (0-3); pH Urine 7.5 (5.0-9.0)
[2024-09-02 14:18] LABS: Alanine Aminotransferase 22 U/L (6-35); Albumin Level 4.4 g/dL (3.5-5.1); Alkaline Phosphatase 65 U/L (38-126); Anion Gap 2 mmol/L (4-12); Aspartate Amino Transferase 27 U/L (14-36); Bilirubin,Total 0.5 mg/dL (0.2-1.3); Blood Urea Nitrogen 10 mg/dL (7-17); Calcium 9.8 mg/dL (8.4-10.2); Carbon Dioxide 23 mmol/L (22-30); Chloride 114 mmol/L (98-107); Estimated CRCL calculation 72 ml/min; Estimated Glomerular Filt Rate > 60; Glucose 121 mg/dL (65-110); Potassium 3.7 mmol/L (3.4-5.0); Sodium 139 mmol/L (137-145)
[2024-09-02 15:26] VITALS: BP 143/85; PULSE 73; RESP 20; O2SAT 98
[2024-09-02 15:32] VITALS: RESP 18; O2SAT 100
== END 2024-09-02 15:33 | disposition home or self-care (01) ==
PROVIDERS: Emergency Provider Emergency Medicine; PCP Physician Assistant
DX: N39.0 Urinary tract infection, site not specified (principal); K57.92 Diverticulitis of intestine, part unspecified, without perforation or abscess without bleeding; F17.210 Nicotine dependence, cigarettes, uncomplicated
CPT/HCPCS: 36415; 74176; 80053; 81001; 85025; 87086; 87186; 96365; 99284; J0696

== ENCOUNTER 2024-09-19 10:39 | Emergency (ER) | payer OTHER, SELFPAY ==
--- NOTE | 2024-09-19 16:31 | PC.NURSE ---
Patient called for evaluation room without answer at this time.
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
--- OUTSIDE RECORDS SUMMARY | 2024-09-26 14:28 | XMS_ITS | Data Portability ---
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 [email or web address] Not available 01/10/2021 10:35:55 10/23/2023 10/23/2023 Sections of the HPI, exam and assessment completed by Bernie Adkins, FOUZIA student and have been reviewed by me. I agree with the exam findings, assessment and plan except where specifically documented or amended. -Dalia Neves, [facility], PA-C [email or web address] Not available 10/24/2023 10:00:39 10/30/2023 10/30/2023 F/u in 2 months to check lipid panel. [email or web address] Not available 10/30/2023 14:54:26 Plan of Treatment Reminders Order Date Submit Date Provider Last Modified By Organization Details Last Modified Time Details Appointments None recorded. Lab lipid panel, serum 2020 021 [facility], [address], [place], [address], 20:08:20 CMP, serum or plasma 2020 021 [facility], [address], [place], [address], 20:08:19 hepatitis C Ab, signal-to- cutoff, serum or plasma 2020 021 [place] [facility], [address], [place], [address], 1 20:08:21 hepatitis B core Ab, total, serum 2020 021 [place] [facility], [address], [place], [address], 1 09:16:01 urinalysis , dipstick 2023 024 [email or web address] In-Office Order, Internal Use Only DO Not Attach Compendium DO Not Attach Compendium, Do Not Delete/merge, [id number] 11:49:50 culture, urine 2023 024 [facility], [address], [place], [address], 4 01:07:19 CMP, serum or plasma 2023 024 [place] [facility], [address], [place], [address], 4 21:08:25 lipid panel, serum 2023 024 [facility], [address], [place], [address], 4 21:08:25 CBC w/ auto diff 2023 024 [facility], [address], [place], [address], 4 21:08:26 TSH + free T4, serum 2023 024 [facility], [address], [place], [address], 4 01:07:18 HbA1c (hemoglobi n A1c), blood 2023 024 [facility], [address], [place], [address], 4 01:07:18 urinalysis , dipstick 2023 024 [place] In-Office Order, Internal Use Only DO Not Attach Compendium DO Not Attach Compendium, Do Not Delete/merge, [id number] 4 17:13:28 culture, urine 2023 024 [facility], [address], [place], [address], 4 02:11:55 Referral hearing screening referral 2023 024 [facility] (Audiology), [address], [place], [address], 4 12:25:50 pelvic floor therapy referral 2023 024 [facility] (Outpatient Physical Therapy), [address], [place], [address], 4 12:00:10 gastroente rologist referral [address], [address], [place], [address], 4 15:43:18 Procedures None recorded. Surgeries None recorded. Imaging MAMMO, screening, bilateral 2020 021 [facility] (One Call Scheduling), [address] [place], [address], 1 15:30:41 XR, ribs, unilateral [address] [facility], [address], [place], [address], 4 13:32:56 MAMMO, screening, bilateral [address] [facility], [address], [place], [address], 4 13:50:48 LDCT, chest, for lung cancer screening 2023 024 [facility], [address], [place], [address], 4 11:34:27 MAMMO, screening, bilateral 2023 024 [email or web address], [address], [place], [address], 4 15:15:25 CT, abdomen + pelvis, w/ contrast [address], [address], [place], [address], 4 13:50:48 Medication Orders nicotine 21 mg/24 hr daily transderma l patch 2020 021 [email or web address] [facility] #[id number], [address], [place], [place], [id number], 4 10:29:04 nitrofuran toin monohydrat e/macrocry stals 100 mg capsule 2023 024 [place] [facility] #[id number], [address], [place], [place], [id number], 4 14:54:42 nicotine 14 mg/24 hr daily transderma l patch 2023 024 [email or web address] [facility] #[id number], [address], [place], [place], [id number], 15:02:56 cyclobenza grace 7.5 mg tablet 2023 024 [facility], [address] , [place], [place], [id number], 16:05:26 metronidaz ole 500 mg tablet 2023 024 [place] [facility] #60284, [address], [place], [place], [id number], 17:11:49 Patient TargetsNo targets recorded. Patient Instructions Encounter Date Encounter Id Patient Instructions Last Modified By Organization Details Last Modified Time 01/10/2021 [id number] mammogram: about this test [email or web address] Not available 01/10/2021 10:43:44 10/23/2023 [id number] Quitting Tobacco : Care Instructions [email or web address] Not available 10/24/2023 12:45:28 I have reviewed the patient's medical record and the note from this clinical encounter. I was available by phone for the duration of the visit. I agree with the assessment and plan with the following addendum: [none]. Ramiro Mejias MD Not available 10/25/2023 19:28:01 10/30/2023 [id number] I have reviewed the patient's medical record and the note from this clinical encounter. I was available by phone for the duration of the visit. I agree with the assessment and plan with the following addendum: [none]. Ramiro Mejias MD Not available 10/30/2023 16:27:52 Reason for Referral Hearing Screening Referral f or Decreased hearing Referring Physician: [facility], Encounter Date: 10/23/2023 Pelvic Floor Therapy Referra l for Mixed urinary incontinence Referring Physician: Family To Mack, Encounter Date: 10/23/2023 Managed Services Consultant Referral for Screening for malignant neoplasm of colon Referring Physician: Family To Mack, Encounter Date: 11/26/2023 Results Created Date Observation Date Name Description Value Unit Range Abnormal Flag Note LastModifiedBy Organization Detail LastModifiedTime 01/11/20 21 01/11/2021 CMP, serum or plasm a glucose 91 mg/dL 65-99 Not Available [facility] ([facility]) [address], [place], [address], 01/11/2021 20:08:19 01/11/20 21 01/11/2021 CMP, serum or plasm a BUN 13 mg/dL 6-24 Not Available [facility] ([facility]) [address] [place], [address], 01/11/2021 20:08:19 01/11/20 21 01/11/2021 CMP, serum or plasm a creatinine 0.82 mg/dL 0.57-1 .00 Not Available [facility] ([facility]) [address] [place], [address], 01/11/2021 20:08:19 01/11/20 21 01/11/2021 CMP, serum or plasm a eGFR if nonafricn AM 79 mL/mi n/1.7 3 >59 Not Available [facility] ([facility]) [address], [place], [address], 01/11/2021 20:08:19 01/11/20 21 01/11/2021 CMP, serum or plasm a eGFR if africn AM 91 mL/mi n/1.7 3 >59 Lab alexys curre ntly repor ts eGFR in compl iance with the curre nt recom menda tions of the Natio n[facility] Kid[facility] y Found ation . [facility] will updat e repor ting as new guide lines are publi shed from the NKF-A SN Task force . Not Available [facility] ([facility]) [address], [place], [address], 01/11/2021 20:08:19 01/11/20 21 01/11/2021 CMP, serum or plasm a BUN/creatini ne ratio 16 9-23 Not Available [facility]) [address] [place], [address], 01/11/2021 20:08:19 01/11/20 21 01/11/2021 CMP, serum or plasm a sodium 141 mmol/ L 134-14 4 Not Available [facility] ([facility]) [address] [place], [address], 01/11/2021 20:08:19 01/11/20 21 01/11/2021 CMP, serum or plasm a potassium 4.8 mmol/ L 3.5-5. 2 Not Available [facility] ([facility]) [address] [place], [address], 01/11/2021 20:08:19 01/11/20 21 01/11/2021 CMP, serum or plasm a chloride 105 mmol/ L 96-106 Not Available [facility] ([facility]) [address] [place], [address], 01/11/2021 20:08:19 01/11/20 21 01/11/2021 CMP, serum or plasm a carbon dioxide, total 25 mmol/ L 20-29 Not Available [facility] ([facility]) [address] [place], [address], 01/11/2021 20:08:19 01/11/20 21 01/11/2021 CMP, serum or plasm a calcium 9.9 mg/dL 8.7-10 .2 Not Available [facility] ([facility]) [address] [place], [address], 01/11/2021 20:08:19 01/11/20 21 01/11/2021 CMP, serum or plasm a protein, total 7.0 g/dL 6.0-8. 5 Not Available [facility] ([facility]) [address] [place], [address], 01/11/2021 20:08:19 01/11/20 21 01/11/2021 CMP, serum or plasm a albumin 4.7 g/dL 3.8-4. 9 Not Available [facility] ([facility]) [address] [place], [address], 01/11/2021 20:08:19 01/11/20 21 01/11/2021 CMP, serum or plasm a globulin, total 2.3 g/dL 1.5-4. 5 Not Available [facility] ([facility]) [address] [place], [address], 01/11/2021 20:08:19 01/11/20 21 01/11/2021 CMP, serum or plasm a A/G ratio 2.0 1.2-2. 2 Not Available [facility] ([facility]) [address] [place], [address], 01/11/2021 20:08:19 01/11/20 21 01/11/2021 CMP, serum or plasm a bilirubin, total <0.2 mg/dL 0.0-1. 2 Not Available [facility] ([facility]) [address] [place], [address], 01/11/2021 20:08:19 01/11/20 21 01/11/2021 CMP, serum or plasm a alkaline phosphatase 68 IU/L 39-117 Not Available [facility]) [address] [place], [address], 01/11/2021 20:08:19 01/11/20 21 01/11/2021 CMP, serum or plasm a AST (SGOT) 19 IU/L 0-40 Not Available [facility] ([facility]) [address] [place], [address], 01/11/2021 20:08:19 01/11/20 21 01/11/2021 CMP, serum or plasm a ALT (SGPT) 16 IU/L 0-32 Not Available [facility] ([facility]) [address] [facility] [address], [place], [address], 01/11/2021 20:08:19 01/11/20 21 01/11/2021 lipid panel , serum cholesterol, total 266 mg/dL 100-19 9 above high normal Not Available [facility] ([facility]) [address], [place], [address], 01/11/2021 20:08:20 01/11/20 21 01/11/2021 lipid panel , serum triglyceride s 88 mg/dL 0-149 Not Available [facility] ([facility]) [address] [place], [address], 01/11/2021 20:08:20 01/11/20 21 01/11/2021 lipid panel , serum HDL cholesterol 76 mg/dL >39 Not Available [facility]) [address] [place], [address], 01/11/2021 20:08:20 01/11/20 21 01/11/2021 lipid panel , serum VLDL cholesterol rolando 15 mg/dL 5-40 Not Available [facility]) [address] [place], [address], 01/11/2021 20:08:20 01/11/20 21 01/11/2021 lipid panel , serum LDL chol calc ([facility]) 175 mg/dL 0-99 above high normal Not Available [facility] ([facility]) [address] [place], [address], 01/11/2021 20:08:20 01/11/20 21 01/11/2021 lipid panel , serum comment: CHORUS MASTER Not Available [facility] ([facility]) [address] [place], [address], 01/11/2021 20:08:20 01/11/20 21 01/11/2021 hepat itis C Ab, signa l-to- cutof f, serum or plasm a HCV Ab <0.1 s/co_ ratio 0.0-0. 9 Not Available [facility] ([facility]) [address], [place], [address], 01/11/2021 20:08:21 01/11/20 21 01/11/2021 hepat itis C Ab, signa l-to- cutof f, serum or plasm a comment: Commen t Non react parker HCV antib [place] scree n is consi stent with no HCV infec tion, unles s recen t infec tion is suspe cted or other evide nce exist s to indic ate HCV infec tion. Not Available [facility] ([facility]) [address], [place], [address], 01/11/2021 20:08:21 01/11/20 21 01/12/2021 Hepat itis B virus core Ab, qual immun oassa y, serum or plasm a hep B core Ab, tot Negati ve negati ve Not Available [facility] ([facility]) [address], [place], [address], 01/12/2021 08:19:22 01/11/20 21 01/11/2021 tyree en autho rizat ion written authorizatio n Commen t Tyree en Autho rizat ion Recei patrick. Autho rizat ion recei patrick from ORIGI NAL REQUI SITIO N 01-11 Logge d by Sam López Not Available [facility] ([facility]) [address], [place], [address], 01/12/2021 08:19:23 10/23/19 24 10/23/2023 LIPID PANEL WITH LDL/H DL RATIO cholesterol, total 339 mg/dL 100-19 9 above high normal Not Available [facility] Department [address], [place], [address], 10/23/2023 21:08:24 10/23/19 24 10/23/2023 LIPID PANEL WITH LDL/H DL RATIO triglyceride s 268 mg/dL 0-149 above high normal Not Available [facility] Department [address] [place], [address], 10/23/2023 21:08:24 10/23/19 24 10/23/2023 LIPID PANEL WITH LDL/H DL RATIO HDL cholesterol 69 mg/dL 40-999 Not Available [facility] Department [address] [place], [address], 10/23/2023 21:08:24 10/23/19 24 10/23/2023 LIPID PANEL WITH LDL/H DL RATIO VLDL cholesterol rolando 54 mg/dL 5-40 above high normal Not Available [facility] Department [address] [place] [address], [address], 10/23/2023 21:08:24 10/23/19 24 10/23/2023 LIPID PANEL WITH LDL/H DL RATIO LDL chol calc (nih) 248 mg/dL 0-99 above high normal Not Available [facility] Department [address] [place] [address], [address], 10/23/2023 21:08:24 10/23/19 24 10/23/2023 LIPID PANEL WITH LDL/H DL RATIO LDL/HDL ratio 3.6 0-3.2 above high normal Not Available [facility] Department [address] [place] [address], [address], 10/23/2023 21:08:24 10/23/19 24 10/23/2023 COMP. METAB OLIC PANEL (14) glucose 104 mg/dL 70-99 above high normal Not Available [facility] Department [address] [place] [address], [address], 10/23/2023 21:08:25 10/23/19 24 10/23/2023 COMP. METAB OLIC PANEL (14) BUN 12 mg/dL 8-27 Not Available [facility] Department [address] [place] [address], [address], 10/23/2023 21:08:25 10/23/19 24 10/23/2023 COMP. METAB OLIC PANEL (14) creatinine 0.60 mg/dL 0.76-1 .27 below low normal Not Available [facility] Department [address] [place] [address], [address], 10/23/2023 21:08:25 10/23/19 24 10/23/2023 COMP. METAB OLIC PANEL (14) eGFR 103 >=60 Units for eGFR value s are mL/mi n/1.7 3 The eGFR Calcu latio n has not been valid ated for patie nts under the age of 18. If test resul ts are displ ayed for a patie nt under the age of 18, disre ning that value . Not Available [facility] Department [address] [place] [address], [address], 10/23/2023 21:08:25 10/23/19 24 10/23/2023 COMP. METAB OLIC PANEL (14) BUN/creatini ne ratio 20 10-28 Not Available [facility] Department [address] [place] [address], [address], 10/23/2023 21:08:25 10/23/19 24 10/23/2023 COMP. METAB OLIC PANEL (14) sodium 141 mmol/ L 134-14 4 Not Available [facility] Department [address] [place] [address], [address], 10/23/2023 21:08:25 10/23/19 24 10/23/2023 COMP. METAB OLIC PANEL (14) potassium 4.5 mmol/ L 3.5-5. 2 Not Available [facility] Department [address] [place] [address], [address], 10/23/2023 21:08:25 10/23/19 24 10/23/2023 COMP. METAB OLIC PANEL (14) chloride 106 mmol/ L 96-106 Not Available [facility] Department [address] [place], [address], 10/23/2023 21:08:25 10/23/19 24 10/23/2023 COMP. METAB OLIC PANEL (14) carbon dioxide, total 22 mmol/ L 20 Not Available [facility] Department [address] [place], [address], 10/23/2023 21:08:25 10/23/19 24 10/23/2023 COMP. METAB OLIC PANEL (14) calcium 10.4 mg/dL 8.7-10 .3 above high normal Not Available [facility] Department [address] [place], [address], 10/23/2023 21:08:25 10/23/19 24 10/23/2023 COMP. METAB OLIC PANEL (14) protein, total 7.6 g/dL 6.0-8. 5 Not Available [facility] Department [address] [place], [address], 10/23/2023 21:08:25 10/23/19 24 10/23/2023 COMP. METAB OLIC PANEL (14) albumin 4.7 g/dL 3.8-4. 9 Not Available [facility] Department [address] [place], [address], 10/23/2023 21:08:25 10/23/19 24 10/23/2023 COMP. METAB OLIC PANEL (14) globulin, total 2.9 g/dL 1.5-4. 5 Not Available [facility] Department [address] [place], [address], 10/23/2023 21:08:25 10/23/19 24 10/23/2023 COMP. METAB OLIC PANEL (14) A/G ratio 2.0 1.2-2. 2 Not Available [facility] Department [address] [place], [address], 10/23/2023 21:08:25 10/23/19 24 10/23/2023 COMP. METAB OLIC PANEL (14) bilirubin, total 0.2 mg/dL 0.0-1. 2 Not Available [facility] [address] [place], [address], 10/23/2023 21:08:25 10/23/19 24 10/23/2023 COMP. METAB OLIC PANEL (14) alkaline phosphatase 100 IU/L 44-121 Not Available [facility] Department [address] [place], [address], 10/23/2023 21:08:25 10/23/19 24 10/23/2023 COMP. METAB OLIC PANEL (14) AST (SGOT) 18 IU/L 0-40 Not Available [facility] Department [address] [place], [address], 10/23/2023 21:08:25 10/23/19 24 10/23/2023 COMP. METAB OLIC PANEL (14) ALT (SGPT) 20 IU/L 0-32 Not Available [facility] Department [address] [place], [address], 10/23/2023 21:08:25 10/23/19 24 10/23/2023 CBC WITH DIFFE RENTI AL/PL ATELE T WBC 9.5 x10e3 /uL 3.4-10 .8 Not Available [facility] Department [address] [place], [address], 10/23/2023 21:08:26 10/23/19 24 10/23/2023 CBC WITH DIFFE RENTI AL/PL ATELE T RBC 5.17 x10e6 /uL 3.77-5 .28 Not Available [facility] Department [address] [place], [address], 10/23/2023 21:08:26 10/23/19 24 10/23/2023 CBC WITH DIFFE RENTI AL/PL ATELE T hemoglobin 15.2 g/dL 11.1-1 5.9 Not Available [facility] Department [address] [place], [address], 10/23/2023 21:08:26 10/23/19 24 10/23/2023 CBC WITH DIFFE RENTI AL/PL ATELE T hematocrit 47.2 % 34.0-4 6.6 above high normal Not Available [facility] Department [address] [place], [address], 10/23/2023 21:08:26 10/23/19 24 10/23/2023 CBC WITH DIFFE RENTI AL/PL ATELE T MCV 91 fL 79-97 Not Available [facility] Department [address] [place], [address], 10/23/2023 21:08:26 10/23/19 24 10/23/2023 CBC WITH DIFFE RENTI AL/PL ATELE T MCH 29.4 pg 26.6-3 3.0 Not Available [facility] Department [address] [place], [address], 10/23/2023 21:08:26 10/23/19 24 10/23/2023 CBC WITH DIFFE RENTI AL/PL ATELE T MCHC 32.2 g/dL 31.5-3 5.7 Not Available [facility] Department [address] [place], [address], 10/23/2023 21:08:26 10/23/19 24 10/23/2023 CBC WITH DIFFE RENTI AL/PL ATELE T RDW 13.1 % 11.5-1 4.5 Not Available [facility] Department [address] [place], [address], 10/23/2023 21:08:26 10/23/19 24 10/23/2023 CBC WITH DIFFE RENTI AL/PL ATELE T platelets 333 x10e3 /uL 150-45 0 Not Available [facility] Department [address] [place], [address], 10/23/2023 21:08:26 10/23/19 24 10/23/2023 CBC WITH DIFFE RENTI AL/PL ATELE T neutrophils 53 % notest b. Not Available [facility] Department [address] [place], [address], 10/23/2023 21:08:26 10/23/19 24 10/23/2023 CBC WITH DIFFE RENTI AL/PL ATELE T lymphs 36 % notest b. Not Available [facility] Department [address] [place], [address], 10/23/2023 21:08:26 10/23/19 24 10/23/2023 CBC WITH DIFFE RENTI AL/PL ATELE T monocytes 9 % notest b. Not Available [facility] Department [address] [place] [address], [address], 10/23/2023 21:08:26 10/23/19 24 10/23/2023 CBC WITH DIFFE RENTI AL/PL ATELE T eos 1 % notest b. Not Available [facility] Department [address] [place], [address], 10/23/2023 21:08:26 10/23/19 24 10/23/2023 CBC WITH DIFFE RENTI AL/PL ATELE T basos 1 % notest b. Not Available [facility] Department [address] [place], [address], 10/23/2023 21:08:26 10/23/19 24 10/23/2023 CBC WITH DIFFE RENTI AL/PL ATELE T neutrophils (absolute) 5.0 x10e3 /uL 1.4-7. 0 Not Available [facility] Department [address] [place], [address], 10/23/2023 21:08:26 10/23/19 24 10/23/2023 CBC WITH DIFFE RENTI AL/PL ATELE T lymphs (absolute) 3.4 x10e3 /uL 0.7-3. 1 above high normal Not Available [facility] Department [address] [place], [address], 10/23/2023 21:08:26 10/23/19 24 10/23/2023 CBC WITH DIFFE RENTI AL/PL ATELE T monocytes(ab solute) 0.9 x10e3 /uL 0.1-0. 9 Not Available [facility] Department [address] [place], [address], 10/23/2023 21:08:26 10/23/19 24 10/23/2023 CBC WITH DIFFE RENTI AL/PL ATELE T eos (absolute) 0.1 x10e3 /uL 0.0-0. 4 Not Available [facility] Department [address] [place] [address], [address], 10/23/2023 21:08:26 10/23/19 24 10/23/2023 CBC WITH DIFFE RENTI AL/PL ATELE T baso (absolute) 0.1 x10e3 /uL 0.0-0. 2 Not Available [facility] Department [address] [place] [address], [address], 10/23/2023 21:08:26 10/23/19 24 10/23/2023 CBC WITH DIFFE RENTI AL/PL ATELE T immature granulocytes 0.1 % notest b. Not Available [facility] Department [address] [place], [address], 10/23/2023 21:08:26 10/23/19 24 10/23/2023 CBC WITH DIFFE RENTI AL/PL ATELE T immature grans (abs) 0.0 x10e3 /uL 0.0-0. 1 Not Available [facility] Department [address] [place] [address], [address], 10/23/2023 21:08:26 10/23/19 24 10/23/2023 CBC WITH DIFFE RENTI AL/PL ATELE T NRBC 0 % 0-0 Not Available [facility] Department [address], [place], [address], 10/23/2023 21:08:26 10/23/19 24 10/25/2023 URINE CULTU RE, ROUTI NE urine culture, routine Final report Not Available [facility] ([facility]) [address] [place], [address], 10/25/2023 01:07:19 10/23/19 24 10/25/2023 URINE CULTU RE, ROUTI NE result 1 No growth Not Available [facility] ([facility]) [address] [place], [address], 10/25/2023 01:07:19 10/23/19 24 10/24/2023 HEMOG LOBIN A1C hemoglobin A1C 5.7 % 4.8-5. 6 above high normal Predi abete s: 5.7 - 6.4 Diabe alonzo: >6.4 Glyce stefano contr ol for adult s with diabe alonzo: <7.0 Not Available [facility] ([facility]) [address] [place], [address], 10/25/2023 01:07:18 10/23/19 24 10/24/2023 TSH+F REE T4 TSH 2.610 uIU/m L 0.450- 4.500 Not Available [facility] ([facility]) [address] [place], [address], 10/25/2023 01:07:18 10/23/1910/24/2023 TSH+F REE T4 T4,free(dire ct) 1.06 NG/dL 0.82-1 .77 Not Available [facility] ([facility]) [address] [place], [address], 10/25/2023 01:07:18 10/23/19 24 10/23/2023 urina lysis , dipst ick Leukocytes Negati ve Not Available In-Office Order Internal Use Only DO Not Attach Compendium DO Not Attach Compendium, Do Not Delete/merge, 10/23/2023 10:41:57 10/23/19 24 10/23/2023 urina lysis , dipst ick Nitrite negati ve Not Available In-Office Order Internal Use Only DO Not Attach Compendium DO Not Attach Compendium, Do Not Delete/merge, 10/23/2023 10:41:57 10/23/19 24 10/23/2023 urina lysis , dipst ick Urobilinogen .2 Not Available In-Of fice Order Internal Use Only DO Not Attach Compendium DO Not Attach Compendium, Do Not Delete/merge, 10/23/2023 10:41:57 10/23/19 24 10/23/2023 urina lysis , dipst ick Protein Negati ve Not Available In-Office Order Internal Use Only DO Not Attach Compendium DO Not Attach Compendium, Do Not Delete/merge, 10/23/2023 10:41:57 10/23/19 24 10/23/2023 urina lysis , dipst ick pH 5.0 Not Available In-Office Order Internal Use Only DO Not Attach Compendium DO Not Attach Compendium, Do Not Delete/merge, 10/23/2023 10:41:57 10/23/19 24 10/23/2023 urina lysis , dipst ick Blood Modera te Not Available In-Office Order Internal Use Only DO Not Attach Compendium DO Not Attach Compendium, Do Not Delete/merge, 10/23/2023 10:41:57 10/23/19 24 10/23/2023 urina lysis , dipst ick Specific [place] 1.010 Not Available In-Off ice Order Internal Use Only DO Not Attach Compendium DO Not Attach Compendium, Do Not Delete/merge, 10/23/2023 10:41:57 10/23/19 24 10/23/2023 urina lysis , dipst ick Ketone Negati ve Not Available In-Office Order Internal Use Only DO Not Attach Compendium DO Not Attach Compendium, Do Not Delete/merge, [id number] 10/23/2023 10:41:57 10/23/19 24 10/23/2023 urina lysis , dipst ick Bilirubin Negati ve Not Available In-Office Order Internal Use Only DO Not Attach Compendium DO Not Attach Compendium, Do Not Delete/merge, [id number] 10/23/2023 10:41:57 10/23/19 24 10/23/2023 urina lysis , dipst ick Glucose Negati ve Not Available In-Office Order Internal Use Only DO Not Attach Compendium DO Not Attach Compendium, Do Not Delete/merge, 10/23/2023 10:41:57 10/23/19 24 10/23/2023 urina lysis , dipst ick Appearance Slight ly Cloudy Not Available In-Office Order Internal Use Only DO Not Attach Compendium DO Not Attach Compendium, Do Not Delete/merge, 10/23/2023 10:41:57 10/23/19 24 10/23/2023 urina lysis , dipst ick Color Yellow Not Available In-Office Order Internal Use Only DO Not Attach Compendium DO Not Attach Compendium, Do Not Delete/merge, 10/23/2023 10:41:57 06/24/20 24 06/27/2024 URINE CULTU RE, ROUTI NE urine culture, routine FINAL REPORT Not Available [facility] ([facility]) [address] [place], [address], 06/27/2024 02:11:55 06/24/20 24 06/27/2024 URINE CULTU RE, ROUTI NE result 1 COMMEN T Cultu re shows less than 10,00 0 colon y formi ng units of bacte nara per nga liter of urine . This colon y count is not gener ally consi dered to be clini yaw merrilli janay t. Not Available [facility] ([facility]) [address] [place], [address], 06/27/2024 02:11:55 06/25/20 24 06/25/2024 urina lysis , dipst ick Leukocytes Negati ve Not Available In-Office Order Internal Use Only DO Not Attach Compendium DO Not Attach Compendium, Do Not Delete/merge, [id number] 06/24/2024 16:57:18 06/25/2006/25/2024 urina lysis , dipst ick Nitrite negati ve Not Available In-Office Order Internal Use Only DO Not Attach Compendium DO Not Attach Compendium, Do Not Delete/merge, [id number] 06/24/2024 16:57:18 06/25/2006/25/2024 urina lysis , dipst ick Urobilinogen .2 Not Available In-Of fice Order Internal Use Only DO Not Attach Compendium DO Not Attach Compendium, Do Not Delete/merge, 06/24/2024 16:57:18 06/25/2006/25/2024 urina lysis , dipst ick Protein Negati ve Not Available In-Office Order Internal Use Only DO Not Attach Compendium DO Not Attach Compendium, Do Not Delete/merge, [id number] 06/24/2024 16:57:18 06/25/2006/25/2024 urina lysis , dipst ick pH 5.0 Not Available In-Office Order Internal Use Only DO Not Attach Compendium DO Not Attach Compendium, Do Not Delete/merge, [id number] 06/24/2024 16:57:18 06/25/2006/25/2024 urina lysis , dipst ick Blood Large Not Available In-Office Order Internal Use Only DO Not Attach Compendium DO Not Attach Compendium, Do Not Delete/merge, [id number] 06/24/2024 16:57:18 06/25/2006/25/2024 urina lysis , dipst ick Specific [place] 1.025 Not Available In-Off ice Order Internal Use Only DO Not Attach Compendium DO Not Attach Compendium, Do Not Delete/merge, [id number] 06/24/2024 16:57:18 06/25/2006/25/2024 urina lysis , dipst ick Ketone Negati ve Not Available In-Office Order Internal Use Only DO Not Attach Compendium DO Not Attach Compendium, Do Not Delete/merge, [id number] 06/24/2024 16:57:18 06/25/20 24 06/25/2024 urina lysis , dipst ick Bilirubin Negati ve Not Available In-Office Order Internal Use Only DO Not Attach Compendium DO Not Attach Compendium, Do Not Delete/merge, [id number] 06/24/2024 16:57:18 06/25/20 24 06/25/2024 urina lysis , dipst ick Glucose Negati ve Not Available In-Office Order Internal Use Only DO Not Attach Compendium DO Not Attach Compendium, Do Not Delete/merge, [id number] 06/24/2024 16:57:18 06/25/20 24 06/25/2024 urina lysis , dipst ick Appearance Clear Not Available In-Offi ce Order Internal Use Only DO Not Attach Compendium DO Not Attach Compendium, Do Not Delete/merge, [id number] 06/24/2024 16:57:18 06/25/20 24 06/25/2024 urina lysis , dipst ick Color Pale Yellow Not Available In-Office Order Internal Use Only DO Not Attach Compendium DO Not Attach Compendium, Do Not Delete/merge, [id number] 06/24/2024 16:57:18 10/26/19 24 10/25/2023 XR, ribs, unila teral No observ ation record ed. [email or web address] [place] [address] [address] [facility], [place], [address], 10/29/2023 10:43:19 11/22/19 24 11/21/2023 MAMMO , scree kolby, bilat eral No observ ation record ed. [email or web address] [facility], [place], [address], 11/25/2023 08:38:57 11/22/19 24 11/21/2023 LDCT, chest , for lung cance r scree kolby No observ ation record ed. [address], [address], 11/26/2023 15:48:01 09/02/20 24 09/02/2024 CT, abdom en + pelvi s, w/ contr ast No observ ation record ed. [address], [place], [address], 09/04/2024 12:00:05 09/19/19 25 09/19/2024 CT, abdom en + pelvi s, w/ contr ast No observ ation record ed. [facility] [address], [place], [address], 09/19/2024 15:01:04 Result Notes None recorded. Problems Name Problem SNOMED Code Status Onset Date Resolution Date Notes Provider Name and Address Organization Details Recorded Time [facility] 93518726 Active 2023 FOUZIA MACK Attn: Beau esquivel,[address] [facility], [place], [address], [facility] - [facility] 4 10:55:18 Smoker 09735646 Active 2023 FOUZIA MACK Attn: Emmanuelandreea esquivel,[address] [facility], [place], [address], [facility] - [facility] 4 14:50:08 Problem Notes None recorded. Procedures Surgical History Date Name Laterality Status Provider Name and Address Organization Details Recorded Time 09/16/19 18 Date of Last Pap Smear completed Carleen Mcgrath [place] 01/10/2021 10:20:58 09/16/19 08 colonoscopy completed Dain Mendoza [place] 06/10/2019 15:03:51 09/16/18 93 total abdominal hysterectomy with bilateral salpingo-oophore ctomy completed FOUZIA MACK Attn: Accounting,[address] [facility], [place], [address], [facility] - [facility] 10/23/2023 11:35:37 ligation of bilateral fallopian tubes completed Dain Mendoza [place] 06/10/2019 15:00:12 Breast Surgery completed Dain Mendoza [place] 06/10/2019 15:00:31 Imaging Results Imaging Date Name Status [facility]Modified [facility] Details LastModified Time 10/25/2023 XR, ribs, unilateral completed [address] [address], [place], [address], 10/29/2023 10:43:19 11/21/2023 MAMMO, screening, bilateral completed [email or web address] [place] [address], [address], 11/25/2023 08:38:57 11/21/2023 LDCT, chest, for lung cancer screening completed [address] [address], [place], [address], 11/26/2023 15:48:01 09/02/2024 CT, abdomen + pelvis, w/ contrast completed [address] [address], [place], [address], 09/04/2024 12:00:05 09/19/2024 CT, abdomen + pelvis, w/ contrast active [address], [address], 09/19/2024 15:01:04 Procedure Notes None recorded. Medical Equipment None Reported. Allergies Allergen ID Allergen Name Allergen Category Reaction Reaction Severity Criticality Documentation Date Start Date Code Code System Note Provider Name and Address Organization Details Recorded Time 220725 Demerol medicatio n Not available Not available Not available 06/10/2019 55957 1 [facility] MARBIN [place], [place] - [facility] 9 14:59:27 Medications Name Sig Start Date Stop Date Status Note LastModified by Organization Details LastModified Time atorvastati n 40 mg tablet TAKE 1 TABLET BY MOUTH EVERY DAY AT DINNER active Not Available Not Available No t Available nicotine 14 mg/24 hr daily transdermal patch Apply 1 patch every day by transderm al route as directed for 30 days. active Not Available Not Available No t Available metronidazo le 500 mg tablet TAKE 1 TABLET BY MOUTH EVERY 8 HOURS WITH FOOD FOR 7 DAYS active Not Available Not Available No t Available ciprofloxac in 500 mg tablet 01/10 completed Not Available Not Available Not Available sulfamethox azole 800 mg-trimetho prim 160 mg tablet Take 1 tablet every 12 hours by oral route after meals for 5 days. 01/10 completed Not Available Not Available Not Available famotidine 20 mg tablet 02/11 completed Not Available Not Available Not Available promethazin e 25 mg tablet 02/11 completed Not Available Not Available Not Available nicotine 21 mg/24 hr daily transdermal patch Apply 1 patch every day by transderm al route. 10/23 completed Not Available Not Available Not Available metoprolol succinate ER 25 mg tablet,exte nded release 24 hr TAKE 1/2 TABLET BY MOUTH EVERY DAY 01/10 completed Not Available Not Available Not Available metoprolol tartrate 25 mg tablet 01/10 completed Not Available Not Available Not Available nitrofurant oin monohydrate /macrocryst als 100 mg capsule Take 1 capsule every 12 hours by oral route with meal(s) for 5 days. 10/30 completed Not Available Not Available Not Available cyclobenzap rine 7.5 mg tablet TAKE 1 TABLET BY MOUTH EVERY DAY AT BEDTIME FOR 14 DAYS active Not Available Not Available No t Available Xarelto 15 mg tablet Take 1 tablet twice a day by oral route as directed for 1 day. 01/10 completed Not Available Not Available Not Available Xarelto 20 mg tablet Take 1 tablet every day by oral route as directed for 30 days. 01/10 completed Not Available Not Available Not Available Vitals Date Recorded Body height Body mass index (BMI) Body weight Body temperature Oxygen saturation Oxygen saturation in Arterial blood by Pulse oximetry Heart rate Systolic blood pressure Diastolic blood pressure Provider Name and Address Organization Details Last Updated DateTime 1 165.1 cm 18.4 kg/m2 32109.2 6 g 97.8 [degF] 96 % 96 % 72 /min 112 mm[Hg] 74 mm[Hg] Carleen Mcgrath [place] - [facility] 1 10:25:24 Date Recorded Body height Body mass index (BMI) Body weight Oxygen saturation Oxygen saturation in Arterial blood by Pulse oximetry Heart rate Respiratory rate Body temperature Systolic blood pressure Diastolic blood pressure Provider Name and Address Organization Details Last Updated DateTime 4 165.1 cm 19.5 kg/m2 44223.3 1 g 97 % 97 % 86 /min 16 /min 98.7 [degF] 120 mm[Hg] 89 mm[Hg] Michelle Leal MA [facility] 4 10:34:33 Date Recorded Systolic blood pressure Diastolic blood pressure Provider Name and Address Organization Details Last Updated DateTime 10/23/2023 136 mm[Hg] 83 mm[Hg] FOUZIA MACK Attn: Accounting,[address] [place], [address], [facility] 10/23/2023 11:45:06 Date Recorded Body height Body mass index (BMI) Body weight Oxygen saturation Oxygen saturation in Arterial blood by Pulse oximetry Heart rate Respiratory rate Systolic blood pressure Diastolic blood pressure Provider Name and Address Organization Details Last Updated DateTime 4 165.1 cm 19.5 kg/m2 22555.4 1 g 98 % 98 % 88 /min 16 /min 147 mm[Hg] 84 mm[Hg] Ivy Valentin MA [facility] 4 11:01:04 Date Recorded Systolic blood pressure Diastolic blood pressure Provider Name and Address Organization Details Last Updated DateTime 10/30/2023 140 mm[Hg] 86 mm[Hg] FOUZIA MACK Attn: Accounting,[address] [place], [address] 10/30/2023 11:25:24 Date Recorded Body height Oxygen saturation Oxygen saturation in Arterial blood by Pulse oximetry Respiratory rate Body mass index (BMI) Body weight Heart rate Systolic blood pressure Diastolic blood pressure Provider Name and Address Organization Details Last Updated DateTime 4 165.1 cm 96 % 96 % 16 /min 19.6 kg/m2 15795.9 g 91 /min 128 mm[Hg] 81 mm[Hg] Ivy Valentin MA [facility] 4 15:41:02 Date Recorded Body height Body mass index (BMI) Body weight Heart rate Body temperature Oxygen saturation Oxygen saturation in Arterial blood by Pulse oximetry Systolic blood pressure Diastolic blood pressure Provider Name and Address Organization Details Last Updated DateTime 4 165.1 cm 19.7 kg/m2 66607.6 2 g 87 /min 98.2 [degF] 96 % 96 % 149 mm[Hg] 85 mm[Hg] Jesus Botello MA [place] - [facility] 4 12:28:53 Date Recorded Body height Body mass index (BMI) Body weight Oxygen saturation Oxygen saturation in Arterial blood by Pulse oximetry Heart rate Respiratory rate Systolic blood pressure Diastolic blood pressure Provider Name and Address Organization Details Last Updated DateTime 165.1 cm 19.8 kg/m2 96472.4 9 g 97 % 97 % 105 /min 16 /min 160 mm[Hg] 83 mm[Hg] Ivy Valentin MA [place] [facility] 4 16:44:19 Date Recorded Heart rate Body temperature Systolic blood pressure Diastolic blood pressure Provider Name and Address Organization Details Last Updated DateTime 06/24/2024 90 /min 98 [degF] 132 mm[Hg] 80 mm[Hg] FOUZIA MACK Attn: Accounting ,[address] [place], [address] , [place] - [facility] 06/24/2024 17:11:53 Social History Question Answer Notes LastModified by Organization Details LastModified Time Tobacco Smoking Status Current Every Day Smoker cigarettes Dain Mendoza MA null, [place] - [facility] 06/10/2019 15:03:14 What Is Your Level Of Alcohol Consumption? None Information not available 06/10/2019 Are You Blind Or Do You Have Difficulty Seeing? No Information not available 01/10/2021 What Is Your Level Of Caffeine Consumption? Moderate Information not available 01/10/2021 In The 14 Days Before Symptom Onset, Have You Had Close Contact With A Laboratory-confi rmed COVID-19 While That Case Was Ill? No Information not available 01/10/2021 In The 14 Days Before Symptom Onset, Have You Had Close Contact With A Person Who Is Under Investigation For COVID-19 While That Person Was Ill? No Information not available 01/10/2021 Have You Been To An Area Known To Be High Risk For COVID-19? No Information not available 01/10/2021 Are You Currently Employed? Yes Information not available 01/10/2021 Are You Deaf Or Do You Have Serious Difficulty Hearing? No Information not available 01/10/2021 What Type Of Diet Are You Following? REGULAR Information not available 01/10/2021 What Is Your Occupation? [employer] Information not available 01/10/2021 Are There Any Guns Present In Your Home? No Information not available 01/10/2021 What Was The Date Of Your Most Recent Tobacco Screening? 12/10/2023 [email or web address] Information not available 12/10/2023 What Is Your Relationship Status? Information not available 01/10/2021 Do You Use Your Seat Belt Or Car Seat Routinely? Yes Information not available 01/10/2021 Do You Have Smoke And Carbon Monoxide Detectors In Your Home? Yes Information not available 01/10/2021 Are You Passively Exposed To Smoke? Yes Information not available 01/10/2021 How Much Tobacco Do You Smoke? 0.5 PPD Information not available 01/10/2021 Do You Feel Stressed (tense, Restless, Nervous, Or Anxious, Or Unable To Sleep At Night)? [id number] Information not available 01/10/2021 Do You Use Any Illicit Or Recreational Drugs? Yes Marijuana-occ asionally Information not available 01/10/2021 Has Tobacco Cessation Counseling Been Provided? Yes [email or web address] Information not available 06/24/2024 On What Date Was Tobacco Cessation Counseling Provided? 06/24/2024 [email or web address] Information not available 06/24/2024 How Many Years Have You Smoked Tobacco? 20 Information not available 06/10/2019 Sex: Female Functional Status Question Answer Note LastModified by Organization D etails LastModified Time Are you able to care for yourself? Yes Information n ot available 01/10/2021 Mental Status None recorded. Family History Relationship Description Onset Age of this Age Resolved Age Notes LastModified by Organization Details LastModified Time Father Alcohol abuse Not available 06/10 15:01:24 Father Cerebrovascu lar accident Not available 15:01:44 Father Depressive disorder Not available 06/10 15:01:55 Father Heart disease Not available 06/10 15:02:08 Father Hypertensive disorder Not available 06/10 15:02:20 Father Hypercholest erolemia Not available 06/10 15:02:34 Mother Alcohol abuse Not available 06/10 15:01:24 Mother Asthma Not available 06/10/2019 15:01:33 Mother Cerebrovascu lar accident Not available 15:01:44 Mother Depressive disorder Not available 06/10 15:01:55 Mother Heart disease Not available 06/10 15:02:08 Mother Hypertensive disorder Not available 06/10 15:02:21 Mother Hypercholest erolemia Not available 06/10 15:02:34 Mother Malignant tumor of ovary Not available 06/10 15:02:55 Medical History No medical history recorded. Gynecological History Statement/Question Response Date of Last Pap Smear 09/16/2017 Current Control Method Hysterectom y Date of Last Mammogram Obstetrics History GPAL:G 0 P 0 0 0 0 Immunizations Vaccine Type Date Status Note Provider Nam e and Address Organization Details Recorded Time Influenza, split virus, quadrivalent, preservative 0 completed Marcus Hassan MD Attn: Accounting,[address] [place], [address], [facility] - [facility] 01/13/2020 12:06:15 Past Encounters Encounter ID Performer Location Encounter Start Date Encounter Closed Date Diagnosis/Indication Diagnosis SNOMED-CT Code Diagnosis ICD10 Code Diagnosis Note [id number] Marcus Hassan MD [facility] ([facility]ult [facility]) [address] [place] [phone] 06/10/2019 14:17:41 06/12/2019 09:06:00 Nicotine dependence 45605171 F17.200 Urge her to quit smoking. Screening for malignant neoplasm of colon 285589982 Z12.11 Discussed with patient. Adult heal th examination 256915974 Z00.00 Discussed with patient, she agreed. [id number] Marcus Hassan MD [facility] (Adult Med) [address] [place] [phone] 12/17/2019 12:18:54 12/18/2019 15:29:07 Administration of influenza vaccine 27920501 Z23 [id number] Marcus Hassan MD [facility] (Adult Med) [address] [place] [phone] 02/12/2020 10:01:53 02/15/2020 14:43:52 Deep venous thrombosis of lower extremity 952739293 I82.409 Discussed with patient, she agreed to try xarelto under the 340 B program. History of colitis 71081 9006 Z87.19 On antibiotic s as prescribed from hospitalis t from [facility] recently. [id number] Marcus Hassan MD [facility] (Adult Med) [address] [place] [id number] 02/29/2020 13:08:45 03/01/2020 14:00:29 Urinary tract infectious disease 37435795 N39.0 [id number] Marcus Hassan MD [facility] (Adult Med) [address] [place] [phone] 05/05/2020 08:07:05 05/09/2020 18:28:54 Deep venous thrombosis of lower extremity 003433753 I82.409 Discussed with patient, she agreed to try xarelto under the 340 B program. [id number] Camille Babin MD [facility] [address] [place] [address] 01/10/2021 10:03:04 01/13/2021 12:36:22 Trying to give up smoking 176820989 Z72.0 discussed how to use patches effectivel y to quit smoking Screening mammography 24 153509 Z12.31 Persistent insomnia 1919 57503 G47.09 try cutting back and eliminatin g caffeine Hypercholesterolemia 136 31156 E78.00 discussed low fat, low carb diet, and encouraged exercise. Adult heal th examination 865082955 Z00.00 Depression screening 171 829395 Z13.31 patient does not appear to be significan tly depressed. [id number] Ramiro keen MD [facility] [address] [place] [address] 10/23/2023 10:22:36 10/28/2023 13:32:56 Dysuria 41332778 R30.0 10/23/23:- experienci ng dysuria for about a month now- has tried azo with no relief- admits to back pain, denies fever- urine dip showed moderate blood, will send for culture- Start macrobid 100mg capsule due to sx and blood on dip- future bladder scan Adult heal th examination 007408039 Z00.00 routine labs Decreased hearing 254712 001 H91.93 10/23/23:- states that ears feel like they are clogged up- can make out certain sounds but not the whole thing- states that hearing loss has been present for 3 years now- Denies ear pain or dizzinessP Ex- nlrefer for hearing screen Screening for malignant neoplasm of breast 012565078 Z12.39 due for mammo Mixed urin duy incontinence 809462799 N39.46 10/23/23:- patient states that she has had a leaking of bladder for years now and it has progressiv chuy gotten worse-over active bladder and stress incontinen ce- states that she wears pads and changes them every couple of hours-snee zing, coughing, laughing, picking things up-refer to pelvic PT Screening for malignant neoplasm of colon 269610123 Z12.11 will discuss at f/u visit Rib pain 104088274 R07.8 1 10/23/23:- she noticed the pain when she was coughing a couple weeks ago.- pain worse with movement, laughing, coughing, lifting, and touching the area- pain is better with minimal movement- has tried ibuprofen, 1-2 doses per day for 1 wk with minimal relief.- pain scale 2-3 with no movement, 8-10 with movement- PEx- moderately TTP L sided lower ribs with increased density compared to R sideXR ribs Smoker 69443183 F17.200 started smoking age 32, recently cut back to 1/2 ppdwill discuss LDCT scan at f/u visit Depression screening 171 963527 Z13.31 PHQ 0 [id number] Ramiro keen MD [facility] [address] [place] [address] 10/30/2023 10:57:37 10/30/2023 11:51:46 Dysuria 79232886 R30.0 10/30/23: dysuria resolved with macrobid 10/23/23:- experienci ng dysuria for about a month now- has tried azo with no relief- admits to back pain, denies fever- urine dip showed moderate blood, will send for culture- Start macrobid 100mg capsule due to sx and blood on dip- future bladder scan Rib pain 825615012 R07.8 1 10/30/23: XR ribs normal, pain has improved 10/23/23:- she noticed the pain when she was coughing a couple weeks ago.- pain worse with movement, laughing, coughing, lifting, and touching the area- pain is better with minimal movement- has tried ibuprofen, 1-2 doses per day for 1 wk with minimal relief.- pain scale 2-3 with no movement, 8-10 with movement- PEx- moderately TTP L sided lower ribs with increased density compared to R sideXR ribs Mixed urin duy incontinence 618317268 N39.46 10/30/23: pelvic floor PT scheduled 11/06/23 10/23/23:- patient states that she has had a leaking of bladder for years now and it has progressiv chuy gotten worse-over active bladder and stress incontinen ce- states that she wears pads and changes them every couple of hours-snee zing, coughing, laughing, picking things up-refer to pelvic PT Decreased hearing 942750 001 H91.93 10/30/23: hearing screen scheduled for 11/12/23 10/23/23:- states that ears feel like they are clogged up- can make out certain sounds but not the whole thing- states that hearing loss has been present for 3 years now- Denies ear pain or dizzinessP Ex- nlrefer for hearing screen Screening for malignant neoplasm of breast 677382345 Z12.39 due for mammoAnder son booked until 03/2024, [facility] Screening for malignant neoplasm of colon 089126560 Z12.11 last colonoscop y 2 yrs agotold to repeat yearlywill request records Smoker 10856546 F17.200 started smoking age 89 ppd for 30 yrs, recently cut back to 1/2 ppdtrial nicotine patchesord ered LDCT scan Depression screening 171 344759 Z13.31 PHQ 6attribute s to being a poor sleeper Elevated blood-pressure reading without diagnosis of hypertension 462070051 R03.0 BP 147/84, 140/86prev ious visit BP 136/83advi sed to check BP at home, goal BP <130/80, f/u with BP log in 1 wk [id number] FOUZIA MACK [facility] [address] [place] [address] 11/26/2023 15:30:51 11/26/2023 16:04:06 Rib pain 655173705 R07.81 11/26/23: unable to lay on L side due to paintrial flexeril to help her sleep 10/30/23: XR ribs normal, pain has improved 10/23/23:- she noticed the pain when she was coughing a couple weeks ago.- pain worse with movement, laughing, coughing, lifting, and touching the area- pain is better with minimal movement- has tried ibuprofen, 1-2 doses per day for 1 wk with minimal relief.- pain scale 2-3 with no movement, 8-10 with movement- PEx- moderately TTP L sided lower ribs with increased density compared to R sideXR ribs Smoker 03204500 F17.200 11/26/23: LDCT scan normal, repeat in 1 yrdown to 2-3 cigs from 1/2 ppd 10/30/23:st arted smoking age 89 ppd for 30 yrs, recently cut back to 1/2 ppdtrial nicotine patchesord ered LDCT scan Screening for malignant neoplasm of colon [id number] Z12.11 11/26/23: no result from Dr. Beaulieu, refer to GI 10/30/23:la st colonoscop y 2 yrs agotold to repeat yearlywill request records Left upper quadrant pain [id number] R10.12 PEx- LUQ moderately TTP below L sided ribs, increased density compared to R sideordere d CT abd/pelvis [id number] FOUZIA MACK [facility] [address] [place] [address] 06/24/2024 16:38:41 06/24/2024 17:10:16 Dysuria [id number] R30.0 06/24/24: frequent urination, dysuria- 4-5 daysurine dip showed large blood, sending for culture 10/30/23: dysuria resolved with macrobid 10/23/23:- experienci ng dysuria for about a month now- has tried azo with no relief- admits to back pain, denies fever- urine dip showed moderate blood, will send for culture- Start macrobid 100mg capsule due to sx and blood on dip- future bladder scan Diverticulitis [id number] K57.92 x3 wksLLQ pain, stabbing, worse at nightdiarr hea and constipati onno blood in stoolsVSS, no feversPEx- Left flank pain mild TTPPatient was advised to go to the ED for worsening signs or symptoms including chest pain, SOB, fever, or unable to keep down food or liquidssta rt flagyl, if no improvemen t in 2 days, rec'd pt go to ED Depression screening [id number] Z13.31 PHQ 0 Health Concerns Section Related Observation LastModified by Organization Detai ls LastModified Time None Recorded Concern Status LastModified by Organization Details LastModified Time None Recorded Advance Directives Directive None Recorded Payers Encounter Date Sequence Insurance Name Policy Number Policy Brown Covered Member ID Brown Member ID Guarantor Name 01/10/2021 1 [facility] PRIOR TO 03/16/2021 (MEDICAID REPLACEMENT - HMO) Bekah Dimas [id number] Bekah Dimas 10/23/2023 1 [facility] ON OR AFTER 09/16/2020 - DUAL ELIGIBLE (MEDICARE REPLACEMENT/AD VANTAGE - HMO) Bekah Dimas [id number] Bekah Dimas 10/30/2023 1 [facility] ON OR AFTER 09/16/2020 - DUAL ELIGIBLE (MEDICARE REPLACEMENT/AD VANTAGE - HMO) Bekah Dimas [id number] Bekah Dimas 11/26/2023 1 [facility] ON OR AFTER 03/16/21 (MEDICAID REPLACEMENT - HMO) Bekah Valencia Judie [id number] Bekah Lissette Dimas 06/24/2024 1 [facility] ON OR AFTER 03/16/21 (MEDICAID REPLACEMENT - HMO) Bekah Valencia Judie [id number] Bekah Dimas Notes Date Note Type Note Provider Name and Address Organization Details Recorded Time 1 text/html HyperlipidemiaReported bypatient.Type of hyperlipidemia:hypercholest erolemia Duration:chronic Control:improving Current Therapy:not taking any medications at the present time. Not recorded as taking a statin in the past. Compliance:compliant with diet; exercises Complications:cardiovascula r disease Risk Factors:smokingInsomniaRepo rted bypatient.Severity:moderate Duration:frequent Onset/Timing:gradual onset Context:wakes up120 minutes after going to sleep;takes 120 minutes to fall asleep Modifying Factors:caffeine intake; prescription medication; new stressors in life Associated Symptoms:no anxiety; no snoring; no depression; no known sleep apnea; no pain; no urinary frequency; legs do not feel restless;dyspnea Camille Babin MD Attn: [address] [place], [address], [facility] 01/16/2021 00:55:37 4 text/html Patient is a 62 y/o F, with a past medical history of total hysterectomy and DVT. Presents to the office today as a new patient. C/o leaking of bladder for years now, and it has progressively worsened. She states that she wears pads and changes them every couple of hours. She says that she is also currently experiencing dysuria, urgency, and hematuria for about a month now. Has tried azo with no relief. Admits to back pain, denies fever. C/o left sided abd pain after URI and excessive coughing. She states that now that she has stopped coughing and is still experiencing pain. Pain worse with movement, laughing, coughing, lifting, and touching the area. Pain is better with minimal movement. Has tried ibuprofen, 1-2 doses per day for 1 wk with minimal relief. Pain scale 2-3 with no movement, 8-10 with movement. Denies shortness of breath. C/o decreased hearing. States that it feels like her ears are clogged up, can make out certain sounds. Patient states that hearing loss has been present for 3 years now. Denies ear pain or dizziness. Ramiro Mejias MD Attn: Shana[address] , [place], [address], [place] [facility] 10/25/2023 19:28:07 4 text/html Pt presents for 1 wk f/u. Reports that dysuria resolved with macrobid. She has upcoming hearing appt and pelvic floor physical therapy. Ramiro Mejias MD Attn: [address] [facility], [place], [address], [facility] 10/30/2023 16:27:58 4 text/html Pt presents for LDCT scan results. States that she has started pelvic floor PT. Reports L sided flank/rib pain has not improved, unable to lay on left side and has difficulty sleeping due to pain. FOUZIA MACK Attn: Accounting[address] [facility], [place], [address], [place] [facility] 11/26/2023 17:49:57 4 text/html Pt presents with diverticulitis pain x3 wks. States that she had flare with similar sx 8 months ago, went to ED and was diagnosed with diverticulitis. Describes pain as throbbing and stabbing pain to left lower abdomen and can have flares of pain every 20 minutes, worse at night. Reports that she has had diarrhea and constipation, no blood in her stools. Endorses that her appetite has been okay. FOUZIA MACK Attn: Shana[address] [facility], [place], [address], [place] [facility] 06/28/2024 16:53:40 OBGyn Episode No OBEpisode recorded.
--- OUTSIDE RECORDS SUMMARY | 2024-09-26 14:28 | XMS_ITS | Continuity of Care Document ---
Author Organization [facility] Address [address] [place] [address] Care Team Providers Care Eyeletter Name Role Phone HumbertoDalia Primary Care Provider Kenneth Oliveros MD Emergency Provider Care Teams Patient Care Team Team Status: Active Member Role Status Dates Dalia Paul , FOUZIA Primary Care Provider Active Patient Care Team Team Status: Inactive Member Role Status Dates Dalia Billingsley , FOUZIA Primary Care Provider Active Start: September 02, 2024 End: September 02, 2024 Kenneth Oliveros MD Emergency Provider Active Start: September 02, 2024 End: September 02, 2024 Chief Complaint and Reason for Visit Chief Complaint Admit Date L. flank pain, polyuria September 02 12:58pm Allergies, Adverse Reactions, Alerts Allergen Type Severity Reaction Last Updated Verified Status meperidine Allergy Moderate Swelling September 02, 2024 1:00pm Yes Active Social History Smoking Status Status Start Date End Date Date of Observa tion Smokes tobacco daily (finding) July 11, 2022 1:17pm Observation Status Observation Response Date of Response Gender Identity (if Verbaliz ed by the Patient) Female April 02, 2022 1:17pm alcohol intake current April 02, 2022 1:17pm Substance use type does not use July 11, 2022 12:17pm Patient Sex Female September 02, 024 3:34pm Assigned Sex Female December 15 Family History Relationship Condition Age at Onset Recorded Date/T chaparro grandparent Diabetes mellitus Unknown Status post coronary artery bypass graft Unknown Hypertension Unknown father Heart disease Unknown Hypertension Unknown mother Malignant neoplasm Unknown Problems Active Problems Medical Problem Onset Date Status UTI (urinary tract infection) Unknown Ac tive Tobacco dependence Unknown Active Colon cancer screening Unknown Active PSVT (paroxysmal supraventricular tachycardia) U nknown Active Colitis Unknown Active Diverticulitis Unknown Active Diverticulitis Unknown Active Portal vein thrombosis Unknown Active Abnormal urinalysis Unknown Active Lower abdominal pain Unknown Active Stress incontinence Unknown Active Inactive/Resolved Problems Medical Problem Onset Date Status Acute left flank pain Unknown Resolved Acute dehydration Unknown Resolved Acute dyspnea Unknown Resolved Orthostatic hypotension Unknown Resolved Contusion of rib on left side Unknown Re solved Atypical chest pain Unknown Resolved Near syncope Unknown Resolved Supraventricular tachycardia Unknown Res olved Anxiety attack Unknown Resolved Sigmoid diverticulitis Unknown Resolved Medications Medication Status Dose Units Route Directions Qty Days St art Date Stop Date End Date Instructions Adherence Bupropion Hcl (Wellbutrin Sr) 150 mg tablet sustained-r elease 12 hr Active 150 MG PO Every Morning April 01, 2022 11:00p m Oxybutynin Chloride 5 mg tablet Active 5 MG PO DAILY April 01, 2022 11:00p m Ciprofloxac in Hcl (Cipro) 500 mg tablet Active 500 MG PO Q12H 14 Decemb er 2023 12:00a m Metronidazo le 500 mg tablet Active 500 MG PO Q12H 14 7 Decemb er 2023 12:00a m Phenazopyri dine (Pyridium) 100 mg tablet Active 100 MG PO THREE TIMES A DAY as needed for pain 6 Decemb er 2023 12:00a m Procedures Procedure Date Performed Status Urine Culture September 02, 2024 active Relevant Diagnostic Tests and/or Laboratory Data Laboratory Results Test Date/Time Result Interpretation Reference Range Result Comment Performing Site White Blood Count September 02, 2024 1:57pm 9.8 K/mm3 4.5-10.0 [facility] [id number] [facility] [address] [address] Red Blood Count September 02, 2024 1:57pm 4.79 M/mm3 4.2-5.4 [facility] [id number] [facility] [address] [address] Hemoglobin September 02, 2024 1:57pm 14.5 g/dL 12.0-15.0 [facility] [id number] [facility] [address] [address] Hematocrit September 02, 2024 1:57pm 43.1 % 37.0-47.0 [facility] [id number] [facility] [address] [address] Mean Corpuscular Volume September 02, 2024 1:57pm 90.0 fL 80-100 [facility] [id number] [address] [place] [address] Mean Corpuscular Hemoglobin September 02, 2024 1:57pm 30.3 pg 26-34 [facility] [id number] [address] [place] [address] Mean Corpuscular Hemoglobin Concent September 02, 2024 1:57pm 33.6 g/dL 32-36 [facility] [id number] [address] [place] [address] Red Cell Distribution Width September 02, 2024 1:57pm 12.8 % 11.5-14.5 [facility] [id number] [address] [place] [address] Platelet Count September 02, 2024 1:57pm 260 k/mm3 150-375 [facility] [id number] [address] [place] [address] Mean Platelet Volume September 02, 2024 1:57pm 10.4 fL 7.4-10.4 [facility] [id number] [address] [place] [address] Nucleated Red Blood Cells % September 02, 2024 1:57pm 0.0 % 0.0-0.2 [facility] [id number] [address] [place] [address] Immature Granulocyte % (Auto) September 02, 2024 1:57pm 0.3 % 0-0.5 [facility] [id number] [address] [place] [address] Neutrophils (%) (Auto) September 02, 2024 1:57pm 59.9 % 45.5-73.1 [facility] [id number] [address] [place] [address] Lymphocytes (%) (Auto) September 02, 2024 1:57pm 31.1 % 18.3-44.2 [facility] [id number] [address] [place] [address] Monocytes (%) (Auto) September 02, 2024 1:57pm 7.4 % 2.6-8.5 [facility] [id number] [address] [place] [address] Eosinophils (%) (Auto) September 02, 2024 1:57pm 0.9 % 0-4.4 [facility] [id number] [address] [place] [address] Basophils (%) (Auto) September 02, 2024 1:57pm 0.4 % 0.2-1.2 [facility] [id number] [address] [place] [address] Nucleated RBC Absolute Count (auto) September 02, 2024 1:57pm 0.000 K/mm3 0.0-0.012 [facility] [id number] [address] [place], [place] [address] Absolute Immature Granulocyte (auto September 02, 2024 1:57pm 0.03 K/mm3 0.00-0.031 [facility] [id number] [address] [place], [place] [address] Absolute Neutrophils (auto) September 02, 2024 1:57pm 5.9 K/mm3 1.3-6.7 [facility] [id number] [address] [place] [address] Lymphocytes # (Auto) September 02, 2024 1:57pm 3.04 K/mm3 0.9-3.2 [facility] [id number] [address] [place] [address] Monocytes # (Auto) September 02, 2024 1:57pm 0.7 K/mm3 Above high normal 0.1-0.6 [facility] [id number] [address] [place] [address] Eosinophils # (Auto) September 02, 2024 1:57pm 0.1 K/mm3 0-0.3 [facility] [id number] [address] [place] [address] Basophils # (Auto) September 02, 2024 1:57pm 0.0 K/mm3 0.0-0.1 [facility] [id number] [address] [place] [address] Urine Color September 02, 2024 1:57pm Yellow Yellow [facility] [id number] [address] [place] [address] Urine Appearance September 02, 2024 1:57pm Cloudy Above high normal Clear [facility] [id number] [address] [place] [address] Urine pH September 02, 2024 1:57pm 7.5 5.0-9.0 [facility] [id number] [address] [address] Urine Specific [place] September 02, 2024 1:57pm 1.014 1.001-1.03 5 [facility] [id number] [address] [address] Urine Protein September 02, 2024 1:57pm Negative mg/dL Negative [facility] [id number] [address] [address] Urine Glucose (UA) September 02, 2024 1:57pm Negative mg/dL Negative [facility] [id number] [address] [address] Urine Ketones September 02, 2024 1:57pm Negative mg/dL Negative [facility] [id number] [address] [address] Urine Blood (Manual) September 02, 2024 1:57pm Non-hemol yzed trace Above high normal Negative [facility] [id number] [address] [address] Urine Nitrate September 02, 2024 1:57pm Negative Negative [facility] [id number] [address] [address] Urine Bilirubin September 02, 2024 1:57pm Negative Negative [facility] [id number] [address] [address] Urine Urobilinogen September 02, 2024 1:57pm 0.2 mg/dL <2.0 [facility] [id number] [facility] [address] [address] Urine Leukocyte Esterase (Reflex) September 02, 2024 1:57pm 2+ JESSICA/UL Above high normal Negative [facility] [id number] [facility] [address] [address] Urine RBC September 02, 2024 1:57pm 6-10 [HPF] Above high normal 0-2 [facility] [id number] [address] [address] Urine WBC September 02, 2024 1:57pm >100 [HPF] Above high normal 0-3 [facility] [id number] [address] [address] Urine Squamous Epithelial Cells September 02, 2024 1:57pm Few [HPF] Few [facility] [id number] [address] [address] Urine Bacteria September 02, 2024 1:57pm 4+ [HPF] Above high normal [facility] [id number] [address] [address] Sodium Level September 02, 2024 1:57pm 139 mmol/L 137-145 [facility] [id number] [facility] [address] [address] Potassium Level September 02, 2024 1:57pm 3.7 mmol/L 3.4-5.0 [facility] [id number] [address] [place] [address] Chloride Level September 02, 2024 1:57pm 114 mmol/L Above high normal 98-107 [facility] [id number] [address] [place] [address] Carbon Dioxide Level September 02, 2024 1:57pm 23 mmol/L - [facility] [id number] [address] [place] [address] Anion Gap September 02, 2024 1:57pm 2 mmol/L Below low normal 4-12 [facility] [id number] [address] [place] [address] Blood Urea Nitrogen September 02, 2024 1:57pm 10 mg/dL - [facility] [id number] [address] [place] [address] Creatinine September 02, 2024 1:57pm 0.60 mg/dL Below low normal 0.7-1.0 [facility] [id number] [address] [place] [address] Estimat Glomerular Filtration Rate September 02, 2024 1:57pm > 60 >59 > OR = 60 ml/min/1.73 square metersThe MDRD formula used to calculate the eGFR result has not been validated in patients > 70 years of age. [facility] [id number] [address] [place] [address] Estimated Creatinine Clearance Calc September 02, 2024 1:57pm 72 mL/min For use in prescription drug dose determination only. Reference ranges have not been establishe for this calculation. [facility] [id number] [address] [place] [address] Glucose Level September 02, 2024 1:57pm 121 mg/dL Above high normal 65-110 [facility] [id number] [address] [place] [address] Calcium Level September 02, 2024 1:57pm 9.8 mg/dL 8.4-10.2 [facility] [id number] [address] [place] [address] Total Bilirubin September 02, 2024 1:57pm 0.5 mg/dL 0.2-1.3 [facility] [id number] [address] [place] [address] Aspartate Amino Transf (AST/SGOT) September 02, 2024 1:57pm 27 U/L 14-36 [facility] [id number] [address] [place] [address] Alanine Aminotransferase (ALT/SGPT) September 02, 2024 1:57pm 22 U/L 6-35 [facility] [id number] [address] [place] [address] Total Protein September 02, 2024 1:57pm 7.0 g/dL 6.3-8.2 [facility] [id number] [address] [place] [address] Albumin September 02, 2024 1:57pm 4.4 g/dL 3.5-5.1 [facility] [id number] [address] [place] [address] Alkaline Phosphatase September 02, 2024 1:57pm 65 U/L 38-126 [facility] [id number] [address] [place] [address] Urine Casts September 02, 2024 1:57pm 0-2 [facility] [id number] [address] [place] [address] Diagnostic Imaging Reports Author [facility] Report Date/Time September 02, 2024 2:57pm [address] [address] [address] Scan Report Signed Patient: Bekah Dimas : 1960 MR#: [id number] Age: 63 Acct:[id number] Loc: [facility] ADM Date: 09/02/[address]: Ordering Physician: Kenneth Oliveros MD Date of Service: 09/02/24 Procedure(s): CT abdomen pelvis wo con Accession Number(s): [id number] cc: Humberto, Dalia FRAGOSO; Kenneth Oliveros MD~ CT abdomen pelvis wo con Ordering provider: Kenneth Oliveros MD History: 63 years Female with . hematuria, L flank pain . Comparison: None. Technique: CT abdomen and pelvis without IV and without oral contrast. Automatedexposure control and iterative reconstruction technique were employed. The dose-length product was 188.07 mGy-cm. Findings: Bilateral breast implants. VISUALIZED LOWER CHEST: Dependent atelectatic changes. UPPER ABDOMINAL ORGANS: Liver: Normal. Gallbladder: Normal. Spleen: Normal. Stomach/duodenum: Normal. Pancreas: Normal. Adrenals: Normal. Kidneys: Normal. PELVIC ORGANS: The bladder is normal. BOWEL AND MESENTERY: Colon: Thickened wall of the sigmoid colon which may indicate colitis versus diverticulitis. No surrounding fat stranding seen. No free air or abscess formation noted. Normal appendix. Small Bowel: Normal. No obstruction. Peritoneum/mesentery: No free air. Minimal free fluid seen in the left side of the pelvis.. No mesenteric lymphadenopathy. RETROPERITONEUM: Mild atheromatous disease of the abdominal aorta. No retroperitoneal lymphadenopathy. MUSCULOSKELETAL: Superficial soft tissues: The superficial soft tissues are normal. Bones: Age appropriate degenerative changes of the spine. Bilateral hip osteoarthritic changes. IMPRESSION: 1. No evidence of appendicitis or intestinal obstruction. 2. Thickened sigmoid colon which may indicate colitis versus diverticulitis. infiltrates process cannot be excluded. Sigmoidoscopy is advised. 3. Minimal free fluid seen in the left side of the pelvis. Reviewed, dictated and finalized at location A. EMS AUDITOR Dictated By: Bradford Celeste MD 09/02/24 1446 Signed By: <Electronically signed by Bradford Celeste MD in OV> 09/02/24 1457 Vital Signs Vital Reading Result Reference Range Collection Date/Time Height 65 [in_i] September 02, 2024 1:08pm Weight 54.30 kg September 02, 2024 1:08pm Body Temperature 98 [degF] 97.6-99.6 September 022023 1:08pm Heart Rate 73 /min 60-100 September 02, 2024 3:26pm Respiratory rate 18 /min 12-20 September 022023 3:32pm Oxygen saturation by Pulse oximetry 100 % 90-100 September 02, 2024 3:32pm BP Systolic 143 mm[Hg] 100-140 September 02, 2024 3:26pm BP Diastolic 85 mm[Hg] 60-90 September 02, 2024 3:26pm Insurance Providers Guarantor Bekah Dimas Address [address] [place] [id number] Contact Info. Home Phone: Payer Policy Id Coverage Id Subscriber's Name Subscriber Id Effective Date Expiration Date AR Indra [facility] [id number] Bekah A Judie [id number] Encounters Encounter Location(s) Arrival/Admit Date Discharge/Depart Date Provider(s) Departed Emergency [facility] Emergency Department September 02, 2024 12:58pm September 02, 2024 3:33pm Plan of Treatment Future Tests Future scheduled test information is unavailable Pending Tests Test Name Ordered Date Scheduled Date Urine Culture September 02, 2024 1:57pm Future Visits Future appointment information is unavailable Referrals to Other Providers Reason for Referral Referral Start Date Provider Provider Contact Information Provider Address Dalia Paul , FOUZIA Work Phone: [facility] [place] [address] Jim French MD Work Phone: [phone] [address] [address] [facility] [address] Future Procedures Procedure Name Ordered Date Scheduled Date Urine Culture September 02, 2024 1:44pm Decem 2023 1:57pm Future Medications Future medication information is unavailable Patient Instructions Instruction Admit Date Antibiotic Form Dysuria (ED) Colitis (ED) September 02, 2024 12:58pm Hospital Discharge Instructions Additional Instructions You are being started on antibiotics to cover both a urinary tract infection and a colitis /an infection your colon. antibiotics as directed until completed. Drink plenty of water. Have close follow-up with your primary care physician. Progress Note Author Kenneth [facility] Note Date/Time September 02, 2024 3:33pm [facility] [address] [address] Emergency Room Visit Note Signed Patient: Bekah Dimas MR#: [id number] : 1960 Acct:[id number] Age: 63 ADM Date: 09/02/24 Loc: [facility] Attending Dr: alphonso: Humberto, Dalia FRAGOSO; Kenneth Oliveros MD~ HPI - General Adult General Chief complaint: Urogenital-Female Stated complaint: L. flank pain, polyuria Time Seen by Provider: 09/02/24 13:42 History of Present Illness HPI narrative: 63-year-old female presenting to the emergency department for evaluation for urinary symptoms. patient reports he has had left flank pain that radiates around her left lower quadrant. Patient states she does have some sharp pain intermittently but denies any pain with urination or burning with urination. Patient at denies any prior history of kidney stones. At time of evaluation patient declined any medications for pain control. Related Data Allergies Allergy/AdvReac Type Severity Reaction Status Date / Time meperidine (From Demerol) Allergy Intermediate Swelling Verified 09/02/24 13:00 Review of Systems 2 Review of Systems: All systems reviewed & are unremarkable except as noted in HPI and below PMFSH Past Medical History Medical History Diverticulitis Lower abdominal pain Surgical History Surgical History History of section, classical History of hysterectomy History of tubal ligation Family History Family History Grandparent Diabetes mellitus S/P CABG (coronary artery bypass graft) Hypertension Father Heart disease Hypertension Mother Cancer Social History Social History Smoking packs per day: 0.5 Smoking cigarettes per day: 10.0 Years smoked: 25 Smoking pack-years: 12.50 Smoking status: Current every day smoker Tobacco type: cigarettes Alcohol intake: current Alcohol use details: socially but rare Substance use: current Substance use type: does not use Living arrangements: alone Gender identity (if verbalized by the patient): Female Spiritual care concerns: No Exam 2 Narrative: APPEARANCE: Well appearing, no pain, no distress, well-nourished. HEAD: normocephalic, atraumatic. EYES: PERRLA/EOMI, conjunctivae clear. NOSE: Normal no drainage EARS:TMS clear with good light reflex. THROAT: Pharynx clear, no exudate. NECK: Supple. No adenopathy, no masses. RESPIRATORY: Airway patent, respirations nonlabored. Clear to auscultation bilaterally, no rales, rhonchi, wheezing. CARDIOVASCULAR: Regular rate and rhythm without murmurs rubs or gallops. ABDOMINAL: Left CVA and left lower back tenderness to palpation, no suprapubictenderness to palpation MUSCULOSKELETAL: Moves all extremities. Strength/ROM intact, No edema, No calf tenderness. NEURO: Alert. Cranial nerves II through XII intact. SKIN: Warm, dry. Normal Color Course Vital Signs Vital signs: Vital Signs Temperature 98 F 09/02/24 13:08 Pulse Rate 81 09/02/24 13:08 Respiratory Rate 18 09/02/24 13:08 Blood Pressure 142/82 H 09/02/24 13:08 Pulse Oximetry 98 09/02/24 13:08 Oxygen Delivery Room Air 09/02/24 13:08 Temperature 98 F 09/02/24 13:08 Pulse Rate 73 09/02/24 15:26 Respiratory Rate 18 09/02/24 15:32 Blood Pressure 143/85 H 09/02/24 15:26 Pulse Oximetry 100 09/02/24 15:32 Oxygen Delivery Room Air 09/02/24 13:08 Medical Decision Making [facility] Narrative Medical decision making narrative: 63-year-old female presenting to the emergency department for evaluation for left flank pain. Patient is afebrile with no leukocytosis and hemoglobin of 14.5. Patient's UA did have positive leukocyte esterase blood and greater 100 white blood cells +[address] scan was ordered to evaluate for underlying kidney stone and CT scan was negative for ureteral calculi. CT scan possible diverticulitis. Patient was started Cipro Flagyl to cover both UTI and diverticulitis. Patient was comfortable plan for discharge and close follow-up. Differential Diagnosis Differential Diagnosis: Colitis, diverticulitis, ureteral calculi, urinary tract infection, urinary retention Vital Signs Vital Signs: Vital Signs Temperature 98 F 09/02/24 13:08 Pulse Rate 81 09/02/24 13:08 Respiratory Rate 18 09/02/24 13:08 Blood Pressure 142/82 H 09/02/24 13:08 Pulse Oximetry 98 09/02/24 13:08 Oxygen Delivery Room Air 09/02/24 13:08 Temperature 98 F 09/02/24 13:08 Pulse Rate 73 09/02/24 15:26 Respiratory Rate 18 09/02/24 15:32 Blood Pressure 143/85 H 09/02/24 15:26 Pulse Oximetry 100 09/02/24 15:32 Oxygen Delivery Room Air 09/02/24 13:08 Lab Data Lab results reviewed: Yes I reviewed the patient's lab results. 09/02/24 13:57 09/02/24 13:57 Labs: Lab Results 09/02/24 Range/Units 13:57 WBC 9.8 (4.5-10.0) K/mm3 RBC 4.79 (4.2-5.4) M/mm3 Hgb 14.5 (12.0-15.0) g/dL Hct 43.1 (37.0-47.0) % MCV 90.0 (80-100) fl MCH 30.3 (26-34) pg MCHC 33.6 (32-36) g/dl RDW 12.8 (11.5-14.5) % Plt Count 260 (150-375) k/mm3 MPV 10.4 (7.4-10.4) fl Immature Gran % (Auto) 0.3 (0-0.5) % Neut % (Auto) 59.9 (45.5-73.1) % Lymph % (Auto) 31.1 (18.3-44.2) % [place] % (Auto) 7.4 (2.6-8.5) % Eos % (Auto) 0.9 (0-4.4) % Baso % (Auto) 0.4 (0.2-1.2) % Lymph # (Auto) 3.04 (0.9-3.2) K/mm3 [place] # (Auto) 0.7 H (0.1-0.6) K/mm3 Eos # (Auto) 0.1 (0-0.3) K/mm3 Baso # (Auto) 0.0 (0.0-0.1) K/mm3 Abs Immat Gran (auto) 0.03 (0.00-0.031) K/mm3 Absolute Neuts (auto) 5.9 (1.3-6.7) K/mm3 Absolute Nucleated RBC 0.000 (0.0-0.012) K/mm3 Nucleated RBC % 0.0 (0.0-0.2) % Sodium 139 (137-145) mmol/L Potassium 3.7 (3.4-5.0) mmol/L Chloride 114 H (98-107) mmol/L Carbon Dioxide 23 (22-30) mmol/L Anion Gap 2 L (4-12) mmol/L BUN 10 (7-17) mg/dL Creatinine 0.60 L (0.7-1.0) mg/dL Estim Creat Clear Calc 72 ml/min Estimated GFR > 60 (59 - ) Glucose 121 H (65-110) mg/dL Calcium 9.8 (8.4-10.2) mg/dL Total Bilirubin 0.5 (0.2-1.3) mg/dL AST 27 (14-36) U/L ALT 22 (6-35) U/L Alkaline Phosphatase 65 (38-126) U/L Total Protein 7.0 (6.3-8.2) g/dL Albumin 4.4 (3.5-5.1) g/dL Urine Color Yellow (Yellow) Urine Appearance Cloudy H (Clear) Urine pH 7.5 (5.0-9.0) Ur Specific [place]anchard 1.014 (1.001-1.035) Urine Protein Negative (Negative) mg/dL Urine Glucose (UA) Negative (Negative) mg/dL Urine Ketones Negative (Negative) mg/dL Ur Blood (Man) Non-hemolyzed trace H (Negative) Urine Nitrate Negative (Negative) Urine Bilirubin Negative (Negative) Urine Urobilinogen 0.2 (<2.0) mg/dL Leukocyte Esterase Rfl 2+ H (Negative) JESSICA/UL Urine RBC 6-10 H (0-2) /hpf Urine WBC >100 H (0-3) /hpf Ur Squamous Epith Cells Few (Few) /hpf Urine Bacteria 4+ H /hpf Urine Casts 0-2 Imaging Data Radiologist's impression: Impressions Abdomen/Pelvis CT 09/02/24 14:46 IMPRESSION: 1. No evidence of appendicitis or intestinal obstruction. 2. Thickened sigmoid colon which may indicate colitis versus diverticulitis. infiltrates process cannot be excluded. Sigmoidoscopy is advised. 3. Minimal free fluid seen in the left side of the pelvis. Discharge Plan Discharge Clinical Impression: UTI (urinary tract infection), Diverticulitis Patient Disposition: Home, Self-Care Condition: Stable Instructions: Antibiotic Form, Dysuria (ED), Colitis (ED) Additional Instructions: You are being started on antibiotics to cover both a urinary tract infection and a colitis /an infection your colon. antibiotics as directed until completed. Drink plenty of water. Have close follow-up with your primary care physician. Patient Language: Bolivian Prescriptions: New ciprofloxacin HCl [Cipro] 500 mg tablet 500 mg PO Q12H Qty: 14 0RF metronidazole 500 mg tablet 500 mg PO Q12H 7 Days Qty: 14 0RF phenazopyridine [Pyridium] 100 mg tablet 100 mg PO TID PRN (Reason: pain) Qty: 6 0RF No Action bupropion HCl [Wellbutrin SR] 150 mg tablet sustained-release 12 hr 150 mg PO QAM Qty: 30 3RF oxybutynin chloride 5 mg tablet 5 mg PO DAILY Qty: 30 3RF Follow-up/Referrals: Humberto,FOUZIA Gómez [Primary Care Provider] - Jim French MD [Physician] - This report may have been done utilizing a voice recognition system. Attempts have been made to correct errors. However, there may be uncorrected grammatical, spelling, and recognition errors present. Report Initialized date/time: Kenneth Oliveros MD 09/02/24 / 1410 Electronically signed by: Kenneth Oliveros MD 09/02/242025
--- OUTSIDE RECORDS SUMMARY | 2024-09-26 14:28 | XMS_ITS | Continuity of Care Document ---
Author Organization [facility] Address [address] [place] [address] Care Team Providers Care [place] Supervisor Name Role Phone BEATRICE NEVES Primary Care Provider Unavailabl e Assessment No assessment recorded. Plan of Treatment Reminders Order Date Submit Date Provider Last Modified By Organization Details Last Modified Time Details Appointments None recorded. Lab urinalysis, dipstick 2023 BEMENT In-Office Order, Internal Use Only DO Not Attach Compendium DO Not Attach Compendium, Do Not Delete/merge, [id number] 17:13:28 culture, urine 2023 BEMENT [facility], [address], [place] [address], [place], [address], 4 02:11:55 Referral None recorded. Procedures None recorded. Surgeries None recorded. Imaging None recorded. Medication Orders metronidazo le 500 mg tablet 2023 024 BEMENT [id number], [address] [facility] [address], [place], [place], [id number], 17:11:49 Patient TargetsNo targets recorded. Patient InstructionsNo instructions recorded. Reason for Referral None Reported. Results Created Date Observation Date Name Description Value Unit Range Abnormal Flag Note LastModifiedBy Organization Detail LastModifiedTime 06/25/20 24 06/25/2024 urina lysis , dipst ick Leukocytes Negati ve Not Available In-Office Order Internal Use Only DO Not Attach Compendium DO Not Attach Compendium, Do Not Delete/merge, [id number] 06/24/2024 16:57:18 06/25/20 24 06/25/2024 urina lysis , dipst ick Nitrite negati ve Not Available In-Office Order Internal Use Only DO Not Attach Compendium DO Not Attach Compendium, Do Not Delete/merge, [id number] 06/24/2024 16:57:18 06/25/20 24 06/25/2024 urina lysis , dipst ick Urobilinogen .2 Not Available In-Of fice Order Internal Use Only DO Not Attach Compendium DO Not Attach Compendium, Do Not Delete/merge, [id number] 06/24/2024 16:57:18 06/25/20 24 06/25/2024 urina lysis , dipst ick Protein Negati ve Not Available In-Office Order Internal Use Only DO Not Attach Compendium DO Not Attach Compendium, Do Not Delete/merge, [id number] 06/24/2024 16:57:18 06/25/20 24 06/25/2024 urina lysis , dipst ick pH 5.0 Not Available In-Office Order Internal Use Only DO Not Attach Compendium DO Not Attach Compendium, Do Not Delete/merge, [id number] 06/24/2024 16:57:18 06/25/20 24 06/25/2024 urina lysis , dipst ick Blood Large Not Available In-Office Order Internal Use Only DO Not Attach Compendium DO Not Attach Compendium, Do Not Delete/merge, [id number] 06/24/2024 16:57:18 06/25/20 24 06/25/2024 urina lysis , dipst ick Specific [place] 1.025 Not Available In-Off ice Order Internal Use Only DO Not Attach Compendium DO Not Attach Compendium, Do Not Delete/merge, [id number] 06/24/2024 16:57:18 06/25/20 24 06/25/2024 urina lysis , dipst ick Ketone Negati ve Not Available In-Office Order Internal Use Only DO Not Attach Compendium DO Not Attach Compendium, Do Not Delete/merge, [id number] 06/24/2024 16:57:18 06/25/20 24 06/25/2024 urina lysis , dipst ick Bilirubin Negati ve Not Available In-Office Order Internal Use Only DO Not Attach Compendium DO Not Attach Compendium, Do Not Delete/merge, [id number] 06/24/2024 16:57:18 06/25/20 24 06/25/2024 urina lysis , dipst ick Glucose Negati ve Not Available In-Office Order Internal Use Only DO Not Attach Compendium DO Not Attach Compendium, Do Not Delete/merge, [id number] 06/24/2024 16:57:18 06/25/20 24 06/25/2024 urina lysis , dipst ick Appearance Clear Not Available In-Offi ce Order Internal Use Only DO Not Attach Compendium DO Not Attach Compendium, Do Not Delete/merge, [id number] 06/24/2024 16:57:18 06/25/20 24 06/25/2024 urina lysis , dipst ick Color Pale Yellow Not Available In-Office Order Internal Use Only DO Not Attach Compendium DO Not Attach Compendium, Do Not Delete/merge, [id number] 06/24/2024 16:57:18 09/02/20 24 09/02/2024 CT, abdom en + pelvi s, w/ contr ast No observ ation record ed. [address], [place], [address], 09/04/2024 12:00:05 09/19/19 25 09/19/2024 CT, abdom en + pelvi s, w/ contr ast No observ ation record ed. [facility] [address] [place], [address], 09/19/2024 15:01:04 Result Notes None recorded. Problems Name Problem SNOMED Code Status Onset Date Resolution Date Notes Provider Name and Address Organization Details Recorded Time Hyperlipidemia 60548052 Active 2023 FOUZIA MELTON Attn: Beau esquivel,[address] [facility], [place], [address], [facility] 10:55:18 Smoker 55505685 Active 2023 FOUZIA MELTON Attn: Beau esquivel,[address] [facility], [place], [address], [facility] 4 14:50:08 Problem Notes None recorded. Procedures Surgical History Date Name Laterality Status Provider Name and Address Organization Details Recorded Time 09/16/19 18 Date of Last Pap Smear completed Carleen Mcgrath MA [facility] 01/10/2021 10:20:58 09/16/19 08 colonoscopy completed Dain Mendoza MA [facility] 06/10/2019 15:03:51 09/16/18 93 total abdominal hysterectomy with bilateral salpingo-oophore ctomy completed FOUZIA MELTON Attn: Accounting,[address] [facility], [place], [address], [facility] 10/23/2023 11:35:37 ligation of bilateral fallopian tubes completed Dain Mendoza MA [facility] 06/10/2019 15:00:12 Breast Surgery completed Dain Mendoza MA [facility] 06/10/2019 15:00:31 Imaging Results None recorded. Procedure Notes None recorded. Medical Equipment None Reported. Allergies Allergen ID Allergen Name Allergen Category Reaction Reaction Severity Criticality Documentation Date Start Date Code Code System Note Provider Name and Address Organization Details Recorded Time 563953 Demerol medicatio n Not available Not available Not available 06/10/2019 45772 1 RxNorm Dain Mendoza MA null, [place] [facility] 9 14:59:27 Medications Name Sig Start Date [...] Last Updated DateTime 165.1 cm 19.8 kg/m2 38918.4 9 g 97 % 97 % 105 /min 16 /min 160 mm[Hg] 83 mm[Hg] Ivy Valentin MA [place] [facility] 16:44:19 Date Recorded Heart rate Body temperature Systolic blood pressure Diastolic blood pressure Provider Name and Address Organization Details Last Updated DateTime 06/24/2024 90 /min 98 [degF] 132 mm[Hg] 80 mm[Hg] FOUZIA MELTON Attn: Accounting ,[address] [place], [address] , [place] [facility] 06/24/2024 17:11:53 Social History Question Answer Notes LastModified by Organization Details LastModified Time Tobacco Smoking Status Current Every Day Smoker cigarettes Dain Mendoza MA [facility], [facility] 06/10/2019 15:03:14 What Is Your Level Of [...] not available 01/10/2021 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 [id number] Information not available 01/10/2021 Do You Use Any Illicit Or Recreational Drugs? Yes Marijuana-occ asionally Information not available 01/10/2021 Has Tobacco Cessation Counseling Been Provided? Yes [email or web address] Information not available 06/24/2024 On What Date Was Tobacco Cessation Counseling Provided? 06/24/2024 [email or web address] Information not available 06/24/2024 How Many Years [...] Immunizations Vaccine Type Date Status Note Provider Lee [place] and Address Organization Details Recorded Time Influenza, split virus, quadrivalent, preservative 0 completed Marcus Hassan MD Attn: Accounting,[address] [facility], [place], [address], [facility] 01/13/2020 12:06:15 Past Encounters Encounter ID Performer Location Encounter Start Date Encounter Closed Date Diagnosis/Indication Diagnosis SNOMED-CT Code Diagnosis ICD10 Code Diagnosis Note [id number] FOUZIA MELTON [facility] [address] [place] [address] 06/24/2024 16:38:41 06/24/2024 17:10:16 Dysuria 22990596 R30.0 06/24/24: frequent urination, dysuria- 4-5 daysurine [...] blood on dip- future bladder scan Diverticulitis 085060515 K57.92 x3 [id number] pain, stabbing, worse at [...] pt go to ED Depression screening 171 324851 Z13.31 PHQ 0 Health Concerns Section Related Observation LastModified by Organization Detai ls LastModified Time None Recorded Concern Status LastModified by Organization Details LastModified Time None Recorded Payers Encounter Date Sequence Insurance Name Policy Number Policy Brown Covered Member ID Brown Member ID Guarantor Name 06/24/2024 1 [facility] - DOS ON OR AFTER 21 (MEDICAID REPLACEMENT - HMO) Bekah Dimas [id number] Bekah Dimas Notes Date Note Type Note Provider Name and Address Organization Details Recorded Time 06/24/2024 text/html Pt presents with diverticulitis pain x3 [...] that her appetite has been okay. FOUZIA MELTON Attn: Accounting,[address] [place], [address], [facility] 06/28/2024 16:53:40 OBGyn Episode No OBEpisode recorded.
== END 2024-09-19 17:09 | disposition left against medical advice (07) ==
PROVIDERS: PCP Physician Assistant
DX: K62.5 Hemorrhage of anus and rectum (principal)
CPT/HCPCS: 99199

== ENCOUNTER 2024-11-21 10:31 | Outpatient (CLI) | payer OTHER, SELFPAY ==
--- NOTE | ~2024-11-21 | MM_ITS ---
EXAMINATION: MM scrn luiz implant BI w tano HISTORY: Screening mammogram TECHNIQUE: Craniocaudal and mediolateral oblique 3-D tomosynthesis images with implant displacement a nd synthetic 2-D images were generated. Craniocaudal and mediolateral oblique views of the breasts wi thout implant displacement were obtained using full field digital mammography. CAD analysis was submi tted and interpreted. COMPARISON: 11/21/2023, 10/03/2022 09/29/2019 BREAST PARENCHYMAL COMPOSITION: The breasts are extremely dense, which lowers the sensitivity of mamm ography. FINDINGS: There is no evidence of suspicious mass, calcification, or architectural distortion to sugg est malignancy in either breast. There has been no suspicious interval change. IMPRESSION: No mammographic evidence of malignancy. Recommend routine screening mammography in one year. BI-RADS Category 1: Negative Reviewed, dictated and finalized at [facility].
--- OUTSIDE RECORDS SUMMARY | 2024-11-21 10:36 | XMS_ITS | Clinical Summary ---
Author Organization [facility] Address [address] [place] [address] Care Team Providers Care Qualitative Executive Researcher Name Role Phone Abhay Otero DO Primary Care Provider [phone] Source Comments [facility],non-owned Affiliates and Associated Physician Practices is amultiple site organization consisting of ambulatory clinics and hospital sitesin [place] and [place]. This disclosure is being madepursuant to the Care Everywhere program and may not contain all information available regarding this patient. Last updated 18.[facility] Allergies Active Allergy Reactions Criticality Noted Date Comments Meperidine Swelling 09/20/2024 Medications * Be aware that medications may not be up to date on this document. Alwaysverify current medications with the patient. Medication Sig Dispensed Refills Start Date End Date Status ciprofloxacin (Cipro) 500 MG tablet Take 1 (one) tablet by mouth 2 times daily 14 tablet 09/22/2024 Active Active Problems Problem Noted Date Diagnosed Date Lower GI bleed 09/19/2024 Encounters Date Type Department Care Team Description 09/22/2024 10:30 AM FIREWALL ADMINISTRATOR - 09/22/2024 11:00 AM FIREWALL ADMINISTRATOR Surgery [facility] [address] [place] [id number] Corina Tilley MD COLONOSCOPY SCREEN 09/22/2024 10:23 AM FIREWALL ADMINISTRATOR Anesthesia Event [facility] [address] [place] [address] Tien Marrufo MD Santiago, Michelle C, MD 09/20/2024 2:11 AM FIREWALL ADMINISTRATOR - 09/22/2024 2:09 PM FIREWALL ADMINISTRATOR Hospital Encounter [facility] [id number] [place] [address] Datar, MD Sybil Ferguson Yang, MD Nallapaneni, Naga Neelima, MD Hospitalist Discharge Disposition: Home or Self Care 09/20/2024 Travel from Last 3 Months Immunizations Name Administration Dates Next Due INFLUENZA VACCINE, TRIV. ([place] UZONE; FLULAVAL; FLUARIX; AFLURIA TRIVALENT; 6MO+), 0.5 ML (IIV3) 09/21/2024(Deferred: Patient Refused) Social History Tobacco Use Types Packs/Day Years Used Date Smoking Tobacco: Former Cigarettes Smokeless Tobacco: Never Tobacco Cessation:Counseling Given: Not Answered Alcohol Use Standard Drinks/Week Comments Never 0 (1 standard drink = 0.6 oz pur e alcohol) AUDIT-C Answer Date Recorded Q1: How often do you have a drink containing alcohol? Never 09/20/2024 Q2: How many drinks containi ng alcohol do you have on a typical day when you are drinking? Patient does not drink Frequency of Binge Drinking Not on file 01/2025 Overall Financial Resource Strain (CARDIA) Answe r Date Recorded How hard is it for you to pa y for the very basics like food, housing, medical care, and heating? Not hard at all 09/22/2024 Hunger Vital Sign Answer Date Recorded Within the past 12 months, y ou worried that your food would run out before you got the money to buy more. Never true 09/21/19 25 Within the past 12 months, t he food you bought just didn't last and you didn't have money to get more. Never true 09/21/2024 PRAPARE - Transportation Answer Date Re corded In the past 12 months, has l ack of transportation kept you from medical appointments or from getting medications? No 03/2025 In the past 12 months, has l ack of transportation kept you from meetings, work, or from getting things needed for daily living? No 09/22/2024 Housing Stability Vital Sign Answer Uzair e Recorded In the last 12 months, was t here a time when you were not able to pay the mortgage or rent on time? No 09/22/2024 Number of Times Moved in the Last Year Not on fi le 09/22/2024 At any time in the past 12 m [facility], were you homeless or living in a half-way (including now)? No 09/22/2024 Sex and Gender Information Value Date Recorded Sex Assigned at Not on file Gender Identity Not on file Sexual Orientation Not on file Last Filed Vital Signs Vital Sign Reading Time Taken Comments Blood Pressure 113/58 09/22/2024 11:05 AM FIREWALL ADMINISTRATOR Pulse 68 09/22/2024 11:05 AM FIREWALL ADMINISTRATOR Temperature 36.8 C (98.3 F) 09/22/2024 9:27 AM FIREWALL ADMINISTRATOR Respiratory Rate 19 09/22/2024 11:0 5 AM FIREWALL ADMINISTRATOR Oxygen Saturation 93% 09/22/2024 11: 05 AM FIREWALL ADMINISTRATOR Inhaled Oxygen Concentration - - Weight 53.5 kg (117 lb 14.4 oz) 09/20/2024 2:21 AM FIREWALL ADMINISTRATOR Height 165.1 cm (5' 5 ) 09/20/2024 2:21 AM FIREWALL ADMINISTRATOR Body Mass Index 19.62 09/20/2024 2:21 AM FIREWALL ADMINISTRATOR Plan of Treatment Health Maintenance Due Date Last Done Comments COLOGUARD (AGES 45-75) - COL ON CA SCREENING 1960 CT COLONOGRAPHY - COLON CA SCREENING 1960 FIT - COLON CA SCREENING 1960 FLEX SIG - COLON CA SCREENING 1960 LIPID TESTING 1960 MAMMOGRAM 1960 PAP SMEAR 1962 HIV SCREENING 1977 HEPATITIS C SCREENING 12/10/1980 DTAP/TDAP/TD VACCINES (1 - Tdap) 1981 PNEUMOCOCCAL VACCINE 50+ (1 of 1 - PCV) 2012 ZOSTER VACCINE (1 of 2) 2012 COVID-19 VACCINE ( - 2023-2 5 season) 2024 INFLUENZA VACCINE (#1) 2024 12/17/2019 DEPRESSION SCREENING 09/16/2024 COLON MONITORING 09/22/2034 09/22/2024, 09/22/2024 COLONOSCOPY - COLON CA SCREENING 09/22/2034 09/22/2024, 09/22/2024 Colorectal Cancer Screening 09/22/2034 Respiratory Syncytial Virus (RSV) Vaccine Pt: or over 60 yrs (1 - 1-dose 75+ series) 2037 HEPATITIS B VACCINE Aged Out No longe r eligible based on patient's age to complete this topic HIB VACCINE Aged Out No longer eligi ble based on patient's age to complete this topic HPV VACCINE Aged Out No longer eligi ble based on patient's age to complete this topic MENINGOCOCCAL (Group B) VACCINE Aged Out No longer eligible b ased on patient's age to complete this topic MENINGOCOCCAL VACCINE Aged Out No nils eden eligible based on patient's age to complete this topic Procedures Procedure Name Priority Date/Time Associated Diagnosis Comments CARDIAC RHYTHM STRIP ORDER 09/23/2024 6:43 PM FIREWALL ADMINISTRATOR PATHOLOGY TISSUE EXAM (STL) Routine 09/22/2024 10:46 AM FIREWALL ADMINISTRATOR Diagnosis deferred [place] COLONOSCOPY, DIAGNOSTIC 09/22/2024 10:30 AM FIREWALL ADMINISTRATOR ENDOSCOPY, COLON, DIAGNOSTIC Routine 09/22/2024 6:41 AM FIREWALL ADMINISTRATOR HEMOGLOBIN A1C Routine 09/21/2024 2:01 AM FIREWALL ADMINISTRATOR BASIC METABOLIC PANEL (CALCIUM TOTAL) AM Draw 09/21/2024 2:01 AM FIREWALL ADMINISTRATOR CBC W/O DIFFERENTIAL AM Draw 09/21/2024 2:01 AM FIREWALL ADMINISTRATOR BASIC METABOLIC PANEL (CALCIUM TOTAL) Routine 09/20/2024 2:45 AM FIREWALL ADMINISTRATOR CBC W/O DIFFERENTIAL Routine 09/20/2024 2:45 AM FIREWALL ADMINISTRATOR from Last 3 Months Results * CARDIAC RHYTHM STRIP ORDER (09/23/2024 6:43 PM FIREWALL ADMINISTRATOR) Narrative 09/23/2024 6:43 PM FIREWALL ADMINISTRATOR Ordered by an unspecified provider. Scanned Document CARDIAC SERVICES ORD ERABLES * PATHOLOGY TISSUE EXAM (STL) (09/22/2024 10:46 AM FIREWALL ADMINISTRATOR) Case Report Surgical Pathology Report Case: [id number] Authorizing Provider: Corina Tilley MD Collected: 09/22/2024 10:46 AM Ordering Location: [address] Received: 09/22/2024 01:10 PM Pathologist: Sirena Thomas MD Specimen: Colon Descending Biopsy, possible colitis 09/24/2024 1:45 PM FIREWALL ADMINISTRATOR [facility] Final Diagnosis Descending colon, biopsy: -- Colonic mucosa with acute inflammation -- No dysplasia or malignancy 09/24/2024 1:[address] [facility] Gross Description The specimen is received in a formalin-filled container labeled with the patient s name, Judie, Bekah A., and descending colon and consists of multiple duarte tissue fragments (1.5 x 0.3 x 0.2 cm in aggregate). Entirely submitted in cassette A1. AMA/na 09/24/2024 1:[address] [facility] Microscopic Description Histologic sections show fragments of colonic mucosa with acute cryptitis, reactive epithelial changes in the crypts, surface epithelial mucin depletion, red blood cell extravasation, and largely preserved crypt architecture. There is focal possible crypt atrophy. Features of chronic injury are not identified. The differential includes infection, medication-related injury, and ischemia. 09/24/2024 1:[address] [facility] Disclaimer All histochemical and/or immunohistochemical results are interpreted with controls that demonstrate appropriate staining reactions before reporting results. Note on use of immunocytochemistry reagents: This test was developed and its performance characteristic determined by [facility], Department of Laboratory Medicine. It has not been cleared or approved by the U.S. Food and Drug Administration (FDA). The FDA has determined that such clearance or approval is not necessary. The test is used for clinical purpose. It should not be regarded as investigational or for research. This laboratory is certified to perform high complexity testing. The performance characteristics of the IHC/MARGRET assays have been validated on formalin-fixed paraffin embedded tissues only. The assays have not been validated on decalcified tissues. Results should be interpreted with caution. 09/24/2024 1:[address] [facility] Embedded Images 09/24/2024 1:[address] [facility] Pathology/Cytolo gy COLONIC BIOPSY SPECIMEN / Unknown 09/22/2024 10:46 AM FIREWALL ADMINISTRATOR 09/22/2024 1:10 PM FIREWALL ADMINISTRATOR Corina Tilley MD LAB - PATHOLOGY/CYTO LOGY ORDERABLES [facility] [address] [facility] [place] [address] * ENDOSCOPY, COLON, DIAGNOSTIC (09/22/2024 6:41 AM FIREWALL ADMINISTRATOR) Report Endoscopy POC _ Patient Name: Bekah Dimas Procedure Date: 09/22/2024 6:41 AM Date of : 1960 Admit Type: Inpatient Age: 63 Gender: Female Attending MD: Corina Tilley MD, [id number] _ Procedure: Colonoscopy Indications: Abdominal pain in the left lower quadrant with bloody stool, Abnormal CT of the left colon Providers: Corina Tilley MD (Doctor) Referring MD: Abhay Otreo (Referring MD) Medicines: Monitored Anesthesia Care Complications: No immediate complications. _ Estimated Blood Loss: Estimated blood loss was minimal. Procedure: Pre-Anesthesia Assessment: - Prior to the procedure, a History and Physical was performed, and patient medications and allergies were reviewed. The patient's tolerance of previous anesthesia was also reviewed. The risks and benefits of the procedure and the sedation options and risks were discussed with the patient. All questions were answered, and informed consent was obtained. Prior Anticoagulants: The patient has taken no anticoagulant or antiplatelet agents except for aspirin. ASA Grade Assessment: III - A patient with severe systemic disease. After reviewing the risks and benefits, the patient was deemed in satisfactory condition to undergo the procedure. After I obtained informed consent, the scope was passed under direct vision. Throughout the procedure, the patient's blood pressure, pulse, and oxygen saturations were monitored continuously. The Colonoscope was introduced through the anus and advanced to the transverse colon for evaluation. This was the intended extent. The colonoscopy was somewhat difficult due to restricted mobility of the colon. The patient tolerated the procedure fairly well. The quality of the bowel preparation was adequate. Anatomical landmarks were photographed. Findings: Hemorrhoids were found on perianal exam. A continuous area of nonbleeding ulcerated and edematous friable mucosa was present in the descending colon and splenic flexure. Biopsies were taken with a cold forceps for histology. Multiple small and large-mouthed diverticula were found in the sigmoid colon. _ Impression: - Segment of mucosal ulceration in the descending colon and splenic flexure, biopsied (presume ischemic) - Diverticulosis in the sigmoid colon - Right colon not examined - Hemorrhoids Recommendation: - Return patient to hospital dent for ongoing care. - Await pathology results. - Continue antibiotics for 1 week after d/c home - Advance diet as tolerated - advance as tolerated to soft diet. - Repeat colonoscopy for surveillance as determined by previous surveillence protocol Procedure Code(s): --- Professional --- 75270, 52, Colonoscopy, flexible; with biopsy, single or multiple --- Technical --- 49913, 52, Colonoscopy, flexible; with biopsy, single or multiple Diagnosis Code(s): --- Professional --- K64.9, Unspecified hemorrhoids K63.3, Ulcer of intestine R10.32, Left lower quadrant pain K57.30, Diverticulosis of large intestine without perforation or abscess without bleeding R93.3, Abnormal findings on diagnostic imaging of other parts of digestive tract --- Technical --- K64.9, Unspecified hemorrhoids K63.3, Ulcer of intestine R10.32, Left lower quadrant pain K57.30, Diverticulosis of large intestine without perforation or abscess without bleeding R93.3, Abnormal findings on diagnostic imaging of other parts of digestive tract CPT copyright 2020 [employer]. All rights reserved. The codes documented in this report are preliminary and upon product mgr review may be revised to meet current compliance requirements. Dr. Corina Tilley MD __ Corina Tilley MD 09/22/2024 10:50:15 AM This report has been signed electronically. Number of Addenda: 0 Note Initiated On: 09/22/2024 6:41 AM [facility] 09/22/2024 6:41 AM FIREWALL ADMINISTRATOR Corina Tilley MD GI PROCEDURE ORDERAB LES [facility] [place] [address] * HEMOGLOBIN A1C (09/21/2024 2:01 AM FIREWALL ADMINISTRATOR) Hemoglobin A1c 5.5 <5.7 % 09/21/2024 2:15 AM FIREWALL ADMINISTRATOR [facility] Estimated Average Glucose 111 mg/dL 09/21/2024 2:15 AM FIREWALL ADMINISTRATOR [facility] Blood BLOOD SPECIMEN / Unknown Venipuncture / Unknown 09/21/2024 2:01 AM FIREWALL ADMINISTRATOR 09/21/2024 2:06 AM FIREWALL ADMINISTRATOR Narrative [facility] - 09/21/2024 2:15 AM FIREWALL ADMINISTRATOR HbA1c Interpretation: Normal: < 5.7% Pre-diabetes: 5.7-6.4% Diabetes: Equal to or greater than 6.5% Test results diagnostic of diabetes should be repeated for confirmation. Treatment target values recommended by ADA and other clinical organizations should be used to evaluate metabolic control in patients. This test should not replace glucose testing for patients with Type 1 diabetes, pediatric patients, or women. Falsely low HbA1c results may be observed in patients with clinical conditions that shorten erythrocyte life span or decrease mean erythrocyte age such as the presence of unstable hemoglobin variants, elevated hemoglobin F level or other causes of hemolytic anemia. HbA1c may not accurately reflect glycemic control when clinical conditions that affect erythrocyte survival are present. Severe Iron deficiency anemia may yield falsely high results. Hemoglobin A1c assay should not be used to diagnose or monitor diabetes in patients with malignancy, recent blood transfusion, chronic kidney or liver disease. This method may yield falsely low results when hemoglobin (HbF) exceeds 5% in the specimen. The Visualmarks[employer]ity assay for the measurement of HbA1c is a National Glycohemoglobin Standardization Program (NGSP) certified method. Enoch Devine MD LAB - CHEMISTRY [place] [facility] [address] [place] [address] * (ABNORMAL) CBC W/O DIFFERENTIAL (09/21/2024 2:01 AM FIREWALL ADMINISTRATOR) Only the most recent of2 resultswithin the time period is included. WBC 11.5(H) 4.0 - 10.7 x10E9/L 09/21/2024 2:[address] [facility] RBC Count 4.32 3.90 - 5.20 x10E12/L 09/21/2024 2:[address] [facility] Hemoglobin 12.9 11.9 - 15.8 g/dL 09/21/2024 2:[address] [facility] Hematocrit 39.0 34.8 - 46.1 % 09/21/2024 2:[address] [facility] MCV 90.3 80.0 - 98.0 fL 09/21/2024 2:[address] [facility] MCH 29.9 26.7 - 33.6 pg 09/21/2024 2:[address] [facility] MCHC 33.1 31.7 - 36.3 g/dL 09/21/2024 2:[address] [facility] RDW-CV 12.8 11.3 - 14.8 % 09/21/2024 2:[address] [facility] Platelet Count 210 150 - 420 x10E9/L 09/21/2024 2:[address] [facility] MPV 10.5 7.8 - 11.4 fL 09/21/2024 2:[address] [facility] Blood BLOOD SPECIMEN / Unknown Venipuncture / Unknown 09/21/2024 2:01 AM FIREWALL ADMINISTRATOR 09/21/2024 2:06 AM [facility] Enoch Devine MD LAB - HEMATOLOGY ORD ERABLES [facility] [address] [place] [address] * (ABNORMAL) BASIC METABOLIC PANEL (CALCIUM TOTAL) (09/21/2024 2:01 AM [facility]) Only the most recent of2 resultswithin the time period is included. Glucose 95 70 - 99 mg/dL 09/21/2024 2:[address] [facility] Sodium 141 136 - 145 mmol/L 09/21/2024 2:[address] [facility] Potassium 3.7 3.5 - 5.1 mmol/L 09/21/2024 2:[address] [facility] Chloride 110(H) 98 - 107 mmol/L 09/21/2024 2:[address] [facility] CO2 22 22 - 29 mmol/L 09/21/2024 2:[address] [facility] Calcium 9.1 8.4 - 10.4 mg/dL 09/21/2024 2:[address] [facility] Anion Gap 9 6 - 16 mmol/L 09/21/2024 2:[address] [facility] BUN 7 7 - 26 mg/dL 09/21/2024 2:[address] [facility] Creatinine 0.71 0.57 - 1.11 mg/dL 09/21/2024 2:[address] [facility] eGFR by CKD-EPI >90 >=90 mL/min/1.7 3 m2 09/21/2024 2:[address] [facility] Blood BLOOD SPECIMEN / Unknown Venipuncture / Unknown 09/21/2024 2:01 AM FIREWALL ADMINISTRATOR 09/21/2024 2:06 AM FIREWALL ADMINISTRATOR Enoch Devine MD LAB - CHEMISTRY [place] [facility] [address] [place] [address] from Last 3 Months Advance Directives * Full Code (Latest Code Status on File) Date Activated Date Inactivated Comments 09/20/2024 2:24 AM 09/22/2024 3:10 PM Care Teams Qualitative Executive Researcher Relationship Specialty Start Date End Date Abhay Otero DO [address] [place] [address] PCP - General 08/02/22
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
--- OUTSIDE RECORDS SUMMARY | 2024-11-21 10:36 | XMS_ITS | Data Portability ---
[facility] Address [address] [place] [address] Care Team Providers Care Corporate Travel Agent Name Role Phone DALIA NEVES Primary Care Provider Unavailabl e Assessment Encounter Date Assessment Date Assessment LastModified by Organization Details LastModified Time 10/23/2023 10/23/2023 Sections of the HPI, exam and assessment completed by Bernie Adkins, FOUZIA student and have been reviewed by me. I agree with the exam findings, assessment and plan except where specifically documented or amended. -Dalia Neves, [facility], PASusy [email or web address] Not available 10/24/2023 10:00:39 10/30/2023 10/30/2023 F/u in 2 months to check lipid panel. [email or web address] Not available 10/30/2023 14:54:26 Plan of Treatment Reminders Order Date Submit Date Provider Last Modified By Organization Details Last Modified Time Details Appointments None recorded. Lab CMP, serum or plasma 2024 025 WANBLEE [facility], [address], [place], [address], 5 22:07:53 lipid panel, serum or plasma 2024 025 RICHARD [facility], [address], [place], [address], 5 22:07:52 CBC w/ auto diff 2024 025 RICHARD [facility], [address], [place], [address], 5 22:07:54 TSH + free T4, serum 2024 025 RICHARD [facility], [address], [place], [address], 5 13:10:25 HbA1c (hemoglobin A1c), blood 2024 025 WAN[facility]E [facility], [address], [place], [address], 5 13:10:26 urinalysis, dipstick 2023 024 RICHARD In-Office Order, Internal Use Only DO Not Attach Compendium DO Not Attach Compendium, Do Not Delete/merge, [id number] 4 17:13:28 culture, urine 2023 024 [facility]E [facility], [address], [place], [address], 4 02:11:55 urinalysis, dipstick 2023 024 [email or web address] In-Office Order, Internal Use Only DO Not Attach Compendium DO Not Attach Compendium, Do Not Delete/merge, [id number] 4 11:49:50 culture, urine 2023 024 RICHARD [facility], [address], [place], [address], 4 01:07:19 CMP, serum or plasma 2023 024 RICHARD [facility], [address], [place], [address], 4 21:08:25 lipid panel, serum 2023 024 RICHARD [facility], [address], [place], [address], 4 21:08:25 CBC w/ auto diff 2023 024 WANBLEE [facility], [address], [place], [address], 4 21:08:26 TSH + free T4, serum 2023 024 WANBLEE [facility], [address], [place], [address], 4 01:07:18 HbA1c (hemoglobin A1c), blood 2023 024 WAN[facility]E [facility], [address], [place], [address], 4 01:07:18 Referral gastroenter ologist referral 2024 [address] [place] [address] Isabel Balderrama MD, [address], [place], [address], 5 08:18:56 gastroenter ologist referral [address], [address], [place], [address], 4 15:43:18 hearing screening referral 2023 024 [facility] (Audiology), [address] [facility] [address], [place], [address], 4 12:25:50 pelvic floor therapy referral 2023 024 [facility] (Outpatient Physical Therapy), [facility], [place], [address], 4 12:00:10 Procedures None recorded. Surgeries None recorded. Imaging LDCT, chest, for lung cancer screening [address] (Imaging), [address], [place], [address], 5 07:43:35 CT, abdomen + pelvis, w/ contrast [address] [facility], [address], [place], [address], 4 13:50:48 LDCT, chest, for lung cancer screening 2023 024 [facility], [address], [place], [address], 4 11:34:27 MAMMO, screening, bilateral 2023 [facility]24 [facility], [address], [place], [address], 4 15:15:25 XR, ribs, unilateral [address] [facility], [address], [place], [address], 4 13:32:56 MAMMO, screening, bilateral [address] [facility], [address], [place], [address], 4 13:50:48 Medication Orders metronidazo le 500 mg tablet 2023 025 WAN[facility]E [id number], [address] [facility], [place], [place], [id number], 5 12:07:34 cyclobenzap rine 7.5 mg tablet 2023 025 [facility]BLEE [id number], [address], [place], [place], [id number], 5 12:07:42 nicotine 14 mg/24 hr daily transdermal patch 2023 024 nadia [facility] #[id number], [address], [place], [place], [id number], 5 12:07:11 nitrofurant oin monohydrate /macrocryst als 100 mg capsule 2023 024 RICHARD [facility] #[id number], [address], [place], [place], [id number], 4 14:54:42 Patient TargetsNo targets recorded. Patient Instructions Encounter Date Encounter Id Patient Instructions Last Modified By Organization Details Last Modified Time 10/23/2023 [id number] Quitting Tobacco : Care Instructions nadia Not available 10/24/2023 12:45:28 I have reviewed the patient's medical record and the note from this clinical encounter. I was available by phone for the duration of the visit. I agree with the assessment and plan with the following addendum: [none]. Ramiro Mejias MD Not available 10/25/2023 19:28:01 10/30/2023 [id number] I have reviewed the patient's medical record [...] Physician: Family To Mack, Encounter Date: 10/23/2023 Bmx Rider Referral for Screening for malignant neoplasm of colon Referring Physician: Family To Mack, Encounter Date: 11/26/2023 Bmx Rider Referral for Hospital inpatient stay within past 30 days Referring Physician: [facility], Encounter Date: 11/04/2024 Results Created Date Observation Date Name Description Value Unit Range Abnormal Flag Note LastModifiedBy Organization Detail LastModifiedTime 10/23/19 24 10/23/2023 LIPID PANEL WITH LDL/H DL RATIO cholesterol, total 339 mg/dL 100-19 9 above high normal Not Available [facility] Department [address] [place], [address], 10/23/2023 21:08:24 10/23/19 24 10/23/2023 LIPID PANEL WITH LDL/H DL RATIO triglyceride s 268 mg/dL 0-149 above high normal Not Available [facility] Department [address] [place], [address], 10/23/2023 21:08:24 10/23/19 24 10/23/2023 LIPID PANEL WITH LDL/H DL RATIO HDL cholesterol 69 mg/dL 40-[address] [facility] Department [address] [place], [address], 10/23/2023 21:08:24 10/23/19 24 10/23/2023 LIPID PANEL WITH LDL/H DL RATIO VLDL cholesterol rolando 54 mg/dL 5-40 above high normal Not Available [facility] Department [address] [place], [address], 10/23/2023 21:08:24 10/23/19 24 10/23/2023 LIPID PANEL WITH LDL/H DL RATIO LDL chol calc (nih) 248 mg/dL 0-99 above high normal Not Available [facility] Department [address] [place], [address], 10/23/2023 21:08:24 10/23/19 24 10/23/2023 LIPID PANEL WITH LDL/H DL RATIO LDL/HDL ratio 3.6 0-3.2 above high normal Not Available [facility] Department [address] [place], [address], 10/23/2023 21:08:24 10/23/19 24 10/23/2023 COMP. METAB OLIC PANEL (14) glucose 104 mg/dL 70-99 above high normal Not Available [facility] Department [address] [place] [address], [address], 10/23/2023 21:08:25 10/23/19 24 10/23/2023 COMP. METAB OLIC PANEL (14) BUN 12 mg/dL 8-27 Not Available [facility] Department [address] [place] [address], [address], 10/23/2023 21:08:25 10/23/19 24 10/23/2023 COMP. METAB OLIC PANEL (14) creatinine 0.60 mg/dL 0.76-1 .27 below low normal Not Available [facility] Department [address] [place] [address], [address], 10/23/2023 21:08:25 10/23/19 24 10/23/2023 COMP. METAB OLIC PANEL (14) eGFR 103 >=60 Units for eGFR value s are mL/mi n/1.7 3 The eGFR Calcu latio n has not been valid ated for patie nts under the age of 18. If test resul ts are displ ayed for a patie nt under the age of 18, disre ning that value . Not Available [facility] Department [address] [place] [address], [address], 10/23/2023 21:08:25 10/23/19 24 10/23/2023 COMP. METAB OLIC PANEL (14) BUN/creatini ne ratio 20 10-28 Not Available [facility] Department [address] [place], [address], 10/23/2023 21:08:25 10/23/19 24 10/23/2023 COMP. METAB OLIC PANEL (14) sodium 141 mmol/ L 134-14 4 Not Available [facility] Department [address] [place] [address], [address], 10/23/2023 21:08:25 10/23/19 24 10/23/2023 COMP. METAB OLIC PANEL (14) potassium 4.5 mmol/ L 3.5-5. 2 Not Available [facility] Department [address] [place] [address], [address], 10/23/2023 21:08:25 10/23/19 24 10/23/2023 COMP. METAB OLIC PANEL (14) chloride 106 mmol/ L 96-106 Not Available [facility] Department [address] [place] [address], [address], 10/23/2023 21:08:25 10/23/19 24 10/23/2023 COMP. METAB OLIC PANEL (14) carbon dioxide, total 22 mmol/ L 20-29 Not Available [facility] Department [address] [place] [address], [address], 10/23/2023 21:08:25 10/23/19 24 10/23/2023 COMP. METAB OLIC PANEL (14) calcium 10.4 mg/dL 8.7-10 .3 above high normal Not Available [facility] Department [address] [place] [address], [address], 10/23/2023 21:08:25 10/23/19 24 10/23/2023 COMP. METAB OLIC PANEL (14) protein, total 7.6 g/dL 6.0-8. 5 Not Available [facility] Department [address] [place] [address], [address], 10/23/2023 21:08:25 10/23/19 24 10/23/2023 COMP. METAB OLIC PANEL (14) albumin 4.7 g/dL 3.8-4. 9 Not Available [facility] Department [address] [place] [address], [address], 10/23/2023 21:08:25 10/23/19 24 10/23/2023 COMP. METAB OLIC PANEL (14) globulin, total 2.9 g/dL 1.5-4. 5 Not Available [facility] Department [address] [place] [address], [address], 10/23/2023 21:08:25 10/23/19 24 10/23/2023 COMP. METAB OLIC PANEL (14) A/G ratio 2.0 1.2-2. 2 Not Available [facility] Department [address] [place] [address], [address], 10/23/2023 21:08:25 10/23/19 24 10/23/2023 COMP. METAB OLIC PANEL (14) bilirubin, total 0.2 mg/dL 0.0-1. 2 Not Available [facility] Department [address] [place] [address], [address], 10/23/2023 21:08:25 10/23/19 24 10/23/2023 COMP. METAB OLIC PANEL (14) alkaline phosphatase 100 IU/L 44-[address] [facility] Department [address] [place] [address], [address], 10/23/2023 21:08:25 10/23/19 24 10/23/2023 COMP. METAB OLIC PANEL (14) AST (SGOT) 18 IU/L 0-40 Not Available [facility] Department [address] [place] [address], [address], 10/23/2023 21:08:25 10/23/19 24 10/23/2023 COMP. METAB OLIC PANEL (14) ALT (SGPT) 20 IU/L 0-32 Not Available [facility] Department [address] [place] [address], [address], 10/23/2023 21:08:25 10/23/19 24 10/23/2023 CBC WITH DIFFE RENTI AL/PL ATELE T WBC 9.5 x10e3 /uL 3.4-10 .8 Not Available [facility] Department [address] [place] [address], [address], 10/23/2023 21:08:26 10/23/19 24 10/23/2023 CBC WITH DIFFE RENTI AL/PL ATELE T RBC 5.17 x10e6 /uL 3.77-5 .28 Not Available [facility] Department [address] [place], [address], 10/23/2023 21:08:26 10/23/19 24 10/23/2023 CBC WITH DIFFE RENTI AL/PL ATELE T hemoglobin 15.2 g/dL 11.1-1 5.9 Not Available [facility] Department [address] [place], [address], 10/23/2023 21:08:26 10/23/19 24 10/23/2023 CBC WITH DIFFE RENTI AL/PL ATELE T hematocrit 47.2 % 34.0-4 6.6 above high normal Not Available [facility] Department [address] [place], [address], 10/23/2023 21:08:26 10/23/19 24 10/23/2023 CBC WITH DIFFE RENTI AL/PL ATELE T MCV 91 fL 79-97 Not Available [facility] Department [address] [place], [address], 10/23/2023 21:08:26 10/23/19 24 10/23/2023 CBC WITH DIFFE RENTI AL/PL ATELE T MCH 29.4 pg 26.6-3 3.0 Not Available [facility] Department [address] [place], [address], 10/23/2023 21:08:26 10/23/19 24 10/23/2023 CBC WITH DIFFE RENTI AL/PL ATELE T MCHC 32.2 g/dL 31.5-3 5.7 Not Available [facility] Department [address] [place], [address], 10/23/2023 21:08:26 10/23/19 24 10/23/2023 CBC WITH DIFFE RENTI AL/PL ATELE T RDW 13.1 % 11.5-1 4.5 Not Available [facility] Department [address] [place], [address], 10/23/2023 21:08:26 10/23/19 24 10/23/2023 CBC WITH DIFFE RENTI AL/PL ATELE T platelets 333 x10e3 /uL 150-45 0 Not Available [facility] Department [address] [place], [address], 10/23/2023 21:08:26 10/23/19 24 10/23/2023 CBC WITH DIFFE RENTI AL/PL ATELE T neutrophils 53 % notest b. Not Available [facility] Department [address] [place], [address], 10/23/2023 21:08:26 10/23/19 24 10/23/2023 CBC WITH DIFFE RENTI AL/PL ATELE T lymphs 36 % notest b. Not Available [facility] Department [address] [place], [address], 10/23/2023 21:08:26 10/23/19 24 10/23/2023 CBC WITH DIFFE RENTI AL/PL ATELE T monocytes 9 % notest b. Not Available [facility] Department [address] [place], [address], 10/23/2023 21:08:26 10/23/19 24 10/23/2023 CBC WITH DIFFE RENTI AL/PL ATELE T eos 1 % notest b. Not Available [facility] Department [address] [place], [address], 10/23/2023 21:08:26 10/23/19 24 10/23/2023 CBC WITH DIFFE RENTI AL/PL ATELE T basos 1 % notest b. Not Available [facility] Department [address] [place], [address], 10/23/2023 21:08:26 10/23/19 24 10/23/2023 CBC WITH DIFFE RENTI AL/PL ATELE T neutrophils (absolute) 5.0 x10e3 /uL 1.4-7. 0 Not Available [facility] Department [address] [place], [address], 10/23/2023 21:08:26 10/23/19 24 10/23/2023 CBC WITH DIFFE RENTI AL/PL ATELE T lymphs (absolute) 3.4 x10e3 /uL 0.7-3. 1 above high normal Not Available [facility] Department [address] [place], [address], 10/23/2023 21:08:26 10/23/19 24 10/23/2023 CBC WITH DIFFE RENTI AL/PL ATELE T monocytes(ab solute) 0.9 x10e3 /uL 0.1-0. 9 Not Available [facility] Department [address] [place], [address], 10/23/2023 21:08:26 10/23/19 24 10/23/2023 CBC WITH DIFFE RENTI AL/PL ATELE T eos (absolute) 0.1 x10e3 /uL 0.0-0. 4 Not Available [facility] Department [address] [place], [address], 10/23/2023 21:08:26 10/23/19 24 10/23/2023 CBC WITH DIFFE RENTI AL/PL ATELE T baso (absolute) 0.1 x10e3 /uL 0.0-0. 2 Not Available [facility] Department [address] [place], [address], 10/23/2023 21:08:26 10/23/19 24 10/23/2023 CBC WITH DIFFE RENTI AL/PL ATELE T immature granulocytes 0.1 % notest b. Not Available [facility] Department [address] [place], [address], 10/23/2023 21:08:26 10/23/19 24 10/23/2023 CBC WITH DIFFE RENTI AL/PL ATELE T immature grans (abs) 0.0 x10e3 /uL 0.0-0. 1 Not Available [facility] Department [address] [facility], [place], [address], 10/23/2023 21:08:26 10/23/19 24 10/23/2023 CBC WITH DIFFE RENTI AL/PL ATELE T NRBC 0 % 0-0 Not Available [facility] Department [address], [place], [address], 10/23/2023 21:08:26 10/23/19 24 10/25/2023 URINE CULTU RE, JOHNNY NE urine culture, routine Final report Not Available [facility] ([facility]) [address] [place], [address], 10/25/2023 01:07:19 10/23/19 24 10/25/2023 URINE CULTU REJOHNNY result 1 No growth Not Available [facility] ([facility]) [address] [place], [address], 10/25/2023 01:07:19 10/23/1910/24/2023 HEMOG LOBIN A1C hemoglobin A1C 5.7 % 4.8-5. 6 above high normal Predi abete s: 5.7 - 6.4 Diabe alonzo: >6.4 Glyce stefano contr ol for adult s with diabe alonzo: <7.0 Not Available [facility] ([facility]) [address] [place], [address], 10/25/2023 01:07:18 10/23/19 24 10/24/2023 TSH+F REE T4 TSH 2.610 uIU/m L 0.450- 4.500 Not Available [facility] ([facility]) [address] [place], [address], 10/25/2023 01:07:18 10/23/19 24 10/24/2023 TSH+F REE T4 T4,free(dire ct) 1.06 NG/dL 0.82-1 .77 Not Available [facility] ([facility]) [address] [facility], [place], [address], 10/25/2023 01:07:18 10/23/19 24 10/23/2023 urina lysis [...] 10/23/2023 urina lysis , dipst ick Specific [place] 1.010 Not Available In-Off ice Order Internal [...] 10/23/2023 10:41:57 06/24/20 24 06/27/2024 URINE CULTU REJOHNNY urine culture, routine FINAL REPORT Not Available [facility] ([facility]) [address], [place], [address], 06/27/2024 02:11:55 06/24/20 24 06/27/2024 URINE CULTU REJOHNNY NE result 1 COMMEN T Cultu re shows less than 10,00 0 colon y formi ng units of bacte nara per nga liter of urine . This colon y count is not gener ally consi dered to be clini yaw signi janay t. Not Available [facility] ([facility]) [address] [facility], [place], [address], 06/27/2024 02:11:55 06/25/2006/25/2024 urina lysis , dipst ick Leukocytes Negati ve Not Available In-Office Order Internal Use Only DO Not Attach Compendium DO Not Attach Compendium, Do Not Delete/merge, [id number] 06/24/2024 16:57:18 06/25/2006/25/2024 urina lysis , dipst ick Nitrite negati ve Not Available In-Office Order Internal Use Only DO Not Attach Compendium DO Not Attach Compendium, Do Not Delete/merge, [id number] 06/24/2024 16:57:18 06/25/2006/25/2024 urina lysis , dipst ick Urobilinogen .2 Not Available In-Of fice Order Internal Use Only DO Not Attach Compendium DO Not Attach Compendium, Do Not Delete/merge, [id number] 06/24/2024 16:57:18 06/25/20 24 06/25/2024 urina lysis , dipst ick Protein Negati ve Not Available In-Office Order Internal Use Only DO Not Attach Compendium DO Not Attach Compendium, Do Not Delete/merge, [id number] 06/24/2024 16:57:18 06/25/2006/25/2024 urina lysis , dipst ick pH 5.0 Not Available In-Office Order Internal Use Only DO Not Attach Compendium DO Not Attach Compendium, Do Not Delete/merge, [id number] 06/24/2024 16:57:18 06/25/20 24 06/25/2024 urina lysis , dipst ick Blood Large Not Available In-Office Order Internal Use Only DO Not Attach Compendium DO Not Attach Compendium, Do Not Delete/merge, [id number] 06/24/2024 16:57:18 06/25/20 24 06/25/2024 urina lysis , dipst ick Specific [place] 1.025 Not Available In-Off ice Order Internal Use Only DO Not Attach Compendium DO Not Attach Compendium, Do Not Delete/merge, [id number] 06/24/2024 16:57:18 06/25/20 24 06/25/2024 urina lysis , dipst ick Ketone Negati ve Not Available In-Office Order Internal Use Only DO Not Attach Compendium DO Not Attach Compendium, Do Not Delete/merge, [id number] 06/24/2024 16:57:18 06/25/20 24 06/25/2024 urina lysis , dipst ick Bilirubin Negati ve Not Available In-Office Order Internal Use Only DO Not Attach Compendium DO Not Attach Compendium, Do Not Delete/merge, [id number] 06/24/2024 16:57:18 06/25/20 24 06/25/2024 urina lysis , dipst ick Glucose Negati ve Not Available In-Office Order Internal Use Only DO Not Attach Compendium DO Not Attach Compendium, Do Not Delete/merge, [id number] 06/24/2024 16:57:18 06/25/20 24 06/25/2024 urina lysis , dipst ick Appearance Clear Not Available In-Offi ce Order Internal Use Only DO Not Attach Compendium DO Not Attach Compendium, Do Not Delete/merge, [id number] 06/24/2024 16:57:18 06/25/20 24 06/25/2024 urina lysis , dipst ick Color Pale Yellow Not Available In-Office Order Internal Use Only DO Not Attach Compendium DO Not Attach Compendium, Do Not Delete/merge, [id number] 06/24/2024 16:57:18 11/04/19 25 11/04/2024 LIPID PANEL WITH LDL/H DL RATIO cholesterol, total 317 mg/dL 100-19 9 above high normal Not Available [facility] Department [address] [place], [address], 11/04/2024 22:07:52 11/04/19 25 11/04/2024 LIPID PANEL WITH LDL/H DL RATIO triglyceride s 227 mg/dL 0-149 above high normal Not Available [facility] Department [address] [place], [address], 11/04/2024 22:07:52 11/04/19 25 11/04/2024 LIPID PANEL WITH LDL/H DL RATIO HDL cholesterol 64 mg/dL 40-[address] [facility] Department [address] [place], [address], 11/04/2024 22:07:52 11/04/19 25 11/04/2024 LIPID PANEL WITH LDL/H DL RATIO VLDL cholesterol rolando 45 mg/dL 5-40 above high normal Not Available [facility] Department [address] [place], [address], 11/04/2024 22:07:52 11/04/19 25 11/04/2024 LIPID PANEL WITH LDL/H DL RATIO LDL chol calc (nih) 237 mg/dL 0-99 above high normal Not Available [facility] Department [address] [place], [address], 11/04/2024 22:07:52 11/04/19 25 11/04/2024 LIPID PANEL WITH LDL/H DL RATIO LDL/HDL ratio 3.7 0-3.2 above high normal Not Available [facility] Department [address] [place], [address], 11/04/2024 22:07:52 11/04/19 25 11/04/2024 COMP. METAB OLIC PANEL (14) glucose 108 mg/dL 70-99 above high normal Not Available [facility] Department [address] [place], [address], 11/04/2024 22:07:53 11/04/19 25 11/04/2024 COMP. METAB OLIC PANEL (14) BUN 10 mg/dL 8-27 Not Available [facility] Department [address] [place], [address], 11/04/2024 22:07:53 11/04/19 25 11/04/2024 COMP. METAB OLIC PANEL (14) creatinine 0.78 mg/dL 0.76-1 .27 Not Available [facility] Department [address] [place], [address], 11/04/2024 22:07:53 11/04/19 25 11/04/2024 COMP. METAB OLIC PANEL (14) eGFR 86 >=60 Units for eGFR value s are mL/mi n/1.7 3 The eGFR Calcu latio n has not been valid ated for patie nts under the age of 18. If test resul ts are displ ayed for a patie nt under the age of 18, disre ning that value . Not Available [facility] Department [address] [place] [address], [address], 11/04/2024 22:07:53 11/04/19 25 11/04/2024 COMP. METAB OLIC PANEL (14) BUN/creatini ne ratio 13 10-28 Not Available [facility] Department [address] [place] [address], [address], 11/04/2024 22:07:53 11/04/19 25 11/04/2024 COMP. METAB OLIC PANEL (14) sodium 141 mmol/ L 134-14 4 Not Available [facility] Department [address] [place] [address], [address], 11/04/2024 22:07:53 11/04/19 25 11/04/2024 COMP. METAB OLIC PANEL (14) potassium 4.8 mmol/ L 3.5-5. 2 Not Available [facility] Department [address] [place] [address], [address], 11/04/2024 22:07:53 11/04/19 25 11/04/2024 COMP. METAB OLIC PANEL (14) chloride 104 mmol/ L 96-106 Not Available [facility] Department [address] [place] [address], [address], 11/04/2024 22:07:53 11/04/19 25 11/04/2024 COMP. METAB OLIC PANEL (14) carbon dioxide, total 22 mmol/ L 20-29 Not Available [facility] Department [address] [place], [address], 11/04/2024 22:07:53 11/04/19 25 11/04/2024 COMP. METAB OLIC PANEL (14) calcium 10.1 mg/dL 8.7-10 .3 Not Available [facility] Department [address] [place], [address], 11/04/2024 22:07:53 11/04/19 25 11/04/2024 COMP. METAB OLIC PANEL (14) protein, total 7.4 g/dL 6.0-8. 5 Not Available [facility] Department [address] [place], [address], 11/04/2024 22:07:53 11/04/19 25 11/04/2024 COMP. METAB OLIC PANEL (14) albumin 4.9 g/dL 3.8-4. 8 above high normal Not Available [facility] Department [address] [place], [address], 11/04/2024 22:07:53 11/04/19 25 11/04/2024 COMP. METAB OLIC PANEL (14) globulin, total 2.5 g/dL 1.5-4. 5 Not Available [facility] Department [address] [place], [address], 11/04/2024 22:07:53 11/04/19 25 11/04/2024 COMP. METAB OLIC PANEL (14) A/G ratio 2.0 1.2-2. 2 Not Available [facility] Department [address] [place], [address], 11/04/2024 22:07:53 11/04/19 25 11/04/2024 COMP. METAB OLIC PANEL (14) bilirubin, total 0.3 mg/dL 0.0-1. 2 Not Available [facility] Department [address] [place], [address], 11/04/2024 22:07:53 11/04/19 25 11/04/2024 COMP. METAB OLIC PANEL (14) alkaline phosphatase 92 IU/L 44-[address] [facility] Department [address] [place], [address], 11/04/2024 22:07:53 11/04/19 25 11/04/2024 COMP. METAB OLIC PANEL (14) AST (SGOT) 27 IU/L 0-40 Not Available [facility] [facility] [address] [place], [address], 11/04/2024 22:07:53 11/04/19 25 11/04/2024 COMP. METAB OLIC PANEL (14) ALT (SGPT) 25 IU/L 0-32 Not Available [facility] Department [address] [place], [address], 11/04/2024 22:07:53 11/04/19 25 11/04/2024 CBC WITH DIFFE RENTI AL/PL ATELE T WBC 9.0 x10e3 /uL 3.4-10 .8 Not Available [facility] Department [address] [place], [address], 11/04/2024 22:07:54 11/04/19 25 11/04/2024 CBC WITH DIFFE RENTI AL/PL ATELE T RBC 5.23 x10e6 /uL 3.77-5 .28 Not Available [facility] Department [address] [place], [address], 11/04/2024 22:07:54 11/04/19 25 11/04/2024 CBC WITH DIFFE RENTI AL/PL ATELE T hemoglobin 15.6 g/dL 11.1-1 5.9 Not Available [facility] Department [address] [place], [address], 11/04/2024 22:07:54 11/04/19 25 11/04/2024 CBC WITH DIFFE RENTI AL/PL ATELE T hematocrit 46.5 % 34.0-4 6.6 Not Available [facility] Department [address] [place], [address], 11/04/2024 22:07:54 11/04/19 25 11/04/2024 CBC WITH DIFFE RENTI AL/PL ATELE T MCV 89 fL 79-97 Not Available [facility] Department [address] [place], [address], 11/04/2024 22:07:54 11/04/19 25 11/04/2024 CBC WITH DIFFE RENTI AL/PL ATELE T MCH 29.8 pg 26.6-3 3.0 Not Available [facility] Department [address] [place], [address], 11/04/2024 22:07:54 11/04/19 25 11/04/2024 CBC WITH DIFFE RENTI AL/PL ATELE T MCHC 33.5 g/dL 31.5-3 5.7 Not Available [facility] Department [address] [place], [address], 11/04/2024 22:07:54 11/04/19 25 11/04/2024 CBC WITH DIFFE RENTI AL/PL ATELE T RDW 12.4 % 11.5-1 4.5 Not Available [facility] Department [address] [place], [address], 11/04/2024 22:07:54 11/04/19 25 11/04/2024 CBC WITH DIFFE RENTI AL/PL ATELE T platelets 316 x10e3 /uL 150-45 0 Not Available [facility] Department [address] [place], [address], 11/04/2024 22:07:54 11/04/19 25 11/04/2024 CBC WITH DIFFE RENTI AL/PL ATELE T neutrophils 47 % notest b. Not Available [facility] Department [address] [place], [address], 11/04/2024 22:07:54 11/04/19 25 11/04/2024 CBC WITH DIFFE RENTI AL/PL ATELE T lymphs 40 % notest b. Not Available [facility] Department [address] [place], [address], 11/04/2024 22:07:54 11/04/19 25 11/04/2024 CBC WITH DIFFE RENTI AL/PL ATELE T monocytes 10 % notest b. Not Available [facility] Department [address] [place], [address], 11/04/2024 22:07:54 11/04/19 25 11/04/2024 CBC WITH DIFFE RENTI AL/PL ATELE T eos 1 % notest b. Not Available [facility] Department [address] [place], [address], 11/04/2024 22:07:54 11/04/19 25 11/04/2024 CBC WITH DIFFE RENTI AL/PL ATELE T basos 1 % notest b. Not Available [facility] Department [address] [place], [address], 11/04/2024 22:07:54 11/04/19 25 11/04/2024 CBC WITH DIFFE RENTI AL/PL ATELE T neutrophils (absolute) 4.2 x10e3 /uL 1.4-7. 0 Not Available [facility] Department [address] [place], [address], 11/04/2024 22:07:54 11/04/19 25 11/04/2024 CBC WITH DIFFE RENTI AL/PL ATELE T lymphs (absolute) 3.6 x10e3 /uL 0.7-3. 1 above high normal Not Available [facility] Department [address] [place], [address], 11/04/2024 22:07:54 02/19/20 25 11/04/2024 CBC WITH DIFFE RENTI AL/PL ATELE T monocytes(ab solute) 0.9 x10e3 /uL 0.1-0. 9 Not Available [facility] Department [address] [place], [address], 11/04/2024 22:07:54 11/04/19 25 11/04/2024 CBC WITH DIFFE RENTI AL/PL ATELE T eos (absolute) 0.1 x10e3 /uL 0.0-0. 4 Not Available [facility] Department [address] [place], [address], 11/04/2024 22:07:54 11/04/19 25 11/04/2024 CBC WITH DIFFE RENTI AL/PL ATELE T baso (absolute) 0.1 x10e3 /uL 0.0-0. 2 Not Available [facility] Department [address] [place], [address], 11/04/2024 22:07:54 11/04/19 25 11/04/2024 CBC WITH DIFFE RENTI AL/PL ATELE T immature granulocytes 1.1 % notest b. Not Available [facility] Department [address] [place], [address], 11/04/2024 22:07:54 11/04/19 25 11/04/2024 CBC WITH DIFFE RENTI AL/PL ATELE T immature grans (abs) 0.1 x10e3 /uL 0.0-0. 1 Not Available [facility] Department [address] [place], [address], 11/04/2024 22:07:54 11/04/19 25 11/04/2024 CBC WITH DIFFE RENTI AL/PL ATELE T NRBC 0 % 0-0 Not Available [facility] Department [address] [place], [address], 11/04/2024 22:07:54 11/04/19 25 11/05/2024 TSH+F REE T4 TSH 1.880 uIU/m L 0.450- 4.500 Not Available [facility] ([facility]) [address] [facility], [place], [address], 11/05/2024 13:10:25 11/04/19 25 11/05/2024 TSH+F REE T4 T4,free(dire ct) 1.07 NG/dL 0.82-1 .77 Not Available [facility] ([facility]) [address] [facility], [place], [address], 11/05/2024 13:10:25 11/04/19 25 11/05/2024 HEMOG LOBIN A1C hemoglobin A1C 6.2 % 4.8-5. 6 above high normal Predi abete s: 5.7 - 6.4 Diabe alonzo: >6.4 Glyce stefano contr ol for adult s with diabe alonzo: <7.0 Not Available [facility] ([facility]) [address] [facility], [place], [address], 11/05/2024 13:10:26 10/26/19 24 10/25/2023 XR, ribs, unila teral No observ ation record ed. [email or web address] [place] [address] [address] [facility], [place], [address], 10/29/2023 10:43:19 11/22/19 24 11/21/2023 MAMMO , scree kolby, bilat eral No observ ation record ed. [email or web address], [place], [address], 11/25/2023 08:38:57 11/22/19 24 11/21/2023 LDCT, chest , for lung cance r scree kolby No observ ation record ed. [email or web address] [address], [place], [address], 11/26/2023 15:48:01 09/02/20 24 09/02/2024 CT, abdom en + pelvi s, w/ contr ast No observ ation record ed. [email or web address] [facility] [address], [place], [address], 09/04/2024 12:00:05 09/19/19 25 09/19/2024 CT, abdom en + pelvi s, w/ contr ast No observ ation record ed. [email or web address] [facility] [address] [facility] [place], [address], 10/21/2024 17:45:57 Result Notes None recorded. Problems Name Problem SNOMED Code Status Onset Date Resolution Date Notes Provider Name and Address Organization Details Recorded Time [facility] 16444281 Active 2023 FOUZIA MACK Attn: Emmanuelandreea g,[address] [facility], [place], [address], [facility] 4 10:55:18 Smoker 75968914 Active 2023 FOUZIA MACK Attn: Beau g,[address] [facility], [place], [address], [facility] 4 14:50:08 Problem Notes None recorded. Procedures Surgical History Date Name Laterality Status Provider Name and Address Organization Details Recorded Time 09/16/19 18 Date of Last Pap Smear completed Carleen Mcgrath [place] [facility] 01/10/2021 10:20:58 09/16/19 08 colonoscopy completed Dain Mendoza [place] [facility] 06/10/2019 15:03:51 09/16/18 93 total abdominal hysterectomy with bilateral salpingo-oophore ctomy completed FOUZIA MACK Attn: Accounting,[address] [facility], [place], [address], [facility] 10/23/2023 11:35:37 ligation of bilateral fallopian tubes completed Dain Mendoza [place] [facility] 06/10/2019 15:00:12 Breast Surgery completed Dain Mendoza [place] [facility] 06/10/2019 15:00:31 Imaging Results Imaging Date Name Status LastModified by Organ [facility] access hospital Details LastModified Time 10/25/2023 XR, ribs, unilateral completed [address] [place] [address], [address], 10/29/2023 10:43:19 11/21/2023 MAMMO, screening, bilateral completed [address], [address], 11/25/2023 08:38:57 11/21/2023 LDCT, chest, for lung cancer screening completed [address], [address], 11/26/2023 15:48:01 09/02/2024 CT, abdomen + pelvis, w/ contrast completed [address], [address], 09/04/2024 12:00:05 09/19/2024 CT, abdomen + pelvis, w/ contrast completed [address] [place], [address], 10/21/2024 17:45:57 Procedure Notes None recorded. Medical Equipment None Reported. Allergies Allergen ID Allergen Name Allergen Category Reaction Reaction Severity Criticality Documentation Date Start Date Code Code System Note Provider Name and Address Organization Details Recorded Time 082310 Demerol medicatio n Not available Not available Not available 06/10/2019 16859 1 RxNorm Not Available Not Available Not Available Medications Name Sig Start Date Stop Date Status Note LastModified by Organization Details LastModified Time atorvastati n 40 mg tablet TAKE 1 TABLET BY MOUTH EVERY DAY AT DINNER FOR HIGH CHOLESTER OL active Not Available Not Available No t Available nicotine 14 mg/24 hr daily transdermal patch Apply 1 patch every day by transderm al route as directed for 30 days. 11/04 completed Not Available Not Available Not Available metronidazo le 500 mg tablet TAKE 1 TABLET BY MOUTH TWICE DAILY FOR 7 DAYS 11/04 completed Not Available Not Available Not Available ciprofloxac in 500 mg tablet TAKE 1 TABLET BY MOUTH TWICE DAILY 11/04 completed Not Available Not Available Not Available [...] EVERY DAY AT BEDTIME FOR 14 DAYS 11/04 completed Not Available Not Available Not Available Xarelto 15 mg tablet Take 1 [...] Updated DateTime 4 165.1 cm 19.5 kg/m2 92406.3 1 g 97 % 97 % 86 /min 16 /min 98.7 [degF] 120 mm[Hg] 89 mm[Hg] Michelle Leal [place] [facility] 4 10:34:33 Date Recorded Systolic blood pressure Diastolic blood pressure Provider Name and Address Organization Details Last Updated DateTime 10/23/2023 136 mm[Hg] 83 mm[Hg] FOUZIA AMCK Attn: Accounting,[address] [place], [address], [facility] 10/23/2023 11:45:06 Date Recorded Body height Body mass index (BMI) Body weight Oxygen saturation Oxygen saturation in Arterial blood by Pulse oximetry Heart rate Respiratory rate Systolic blood pressure Diastolic blood pressure Provider Name and Address Organization Details Last Updated DateTime 4 165.1 cm 19.5 kg/m2 89898.4 1 g 98 % 98 % 88 /min 16 /min 147 mm[Hg] 84 mm[Hg] Ivy Valentin MA [facility] 4 11:01:04 Date Recorded Systolic blood pressure Diastolic blood pressure Provider Name and Address Organization Details Last Updated DateTime 10/30/2023 140 mm[Hg] 86 mm[Hg] FOUZIA MACK Attn: Accounting,[address] [place], [address], [facility] 10/30/2023 11:25:24 Date Recorded Body height Oxygen saturation Oxygen saturation in Arterial blood by Pulse oximetry Respiratory rate Body mass index (BMI) Body weight Heart rate Systolic blood pressure Diastolic blood pressure Provider Name and Address Organization Details Last Updated DateTime 4 165.1 cm 96 % 96 % 16 /min 19.6 kg/m2 31745.9 g 91 /min 128 mm[Hg] 81 mm[Hg] Ivy Valentin MA [facility] 4 15:41:02 Date Recorded Body height Body mass index (BMI) Body weight Heart rate Body temperature Pain severity - 0-10 verbal numeric rating [Score] - Reported Oxygen saturation Oxygen saturation in Arterial blood by Pulse oximetry Systolic blood pressure Diastolic blood pressure Provider Name and Address Organization Details Last Updated DateTime 4 165.1 cm 19.7 kg/m2 93742.6 2 g 87 /min 98.2 [degF] 0 96 % 96 % 149 mm[Hg] 85 mm[Hg] Jesus Botello MA [facility] 4 12:28:53 Date Recorded Body height Body mass index (BMI) Body weight Oxygen saturation Oxygen saturation in Arterial blood by Pulse oximetry Heart rate Respiratory rate Systolic blood pressure Diastolic blood pressure Provider Name and Address Organization Details Last Updated DateTime 4 165.1 cm 19.8 kg/m2 69081.4 9 g 97 % 97 % 105 /min 16 /min 160 mm[Hg] 83 mm[Hg] Ivy Valentin [place] [facility] 4 16:44:19 Date Recorded Heart rate Body temperature Systolic blood pressure Diastolic blood pressure Provider Name and Address Organization Details Last Updated DateTime 06/24/2024 90 /min 98 [degF] 132 mm[Hg] 80 mm[Hg] FOUZIA MACK Attn: Accounting ,[address] [place], [address] , [place] [facility] 06/24/2024 17:11:53 Date Recorded Body height Body mass index (BMI) Body weight Oxygen saturation Oxygen saturation in Arterial blood by Pulse oximetry Heart rate Respiratory rate Systolic blood pressure Diastolic blood pressure Provider Name and Address Organization Details Last Updated DateTime 5 165.1 cm 19.6 kg/m2 63087.9 g 96 % 96 % 86 /min 16 /min 130 mm[Hg] 84 mm[Hg] Ivy Valentin MA [place] [facility] 5 11:53:30 Social History Question Answer Notes LastModified by Organizat ion Details LastModified Time Tobacco Smoking Status Former Smoker quit 09/30/24 FOUZIA MACK Attn: Accounting,[address] [place], [address] 11/04/2024 12:45:01 What Is Your Level Of Alcohol Consumption? 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 No Information not available 01/10/2021 What Was The Date Of Your Most Recent Tobacco Screening? 11/04/2024 [email or web address] Information not available 11/04/2024 What Is Your Current Pack Years? [email or web address] Information not available 11/04/2024 What Is Your Relationship Status? Information not available 01/10/2021 Do You Use Your Seat Belt Or Car Seat Routinely? Yes Information not available 01/10/2021 Do You Have Smoke And Carbon Monoxide Detectors In Your Home? Yes Information not available 01/10/2021 Are You Passively Exposed To Smoke? Yes Information no t available 01/10/2021 How Much Tobacco Do You Smoke? 0.5 PPD Information not available 01/10/2021 Do You Feel Stressed (tense, Restless, Nervous, Or Anxious, Or Unable To Sleep At Night)? [id number] Information not available 01/10/2021 Do You Use Any Illicit Or Recreational Drugs? Yes Alexis [email or web address] onally Information not available 01/10/2021 Has Tobacco Cessation Counseling Been Provided? Yes Information not available 06/24/2024 On What Date Was Tobacco Cessation Counseling Provided? 11/04/2024 [email or web address] Information not available 11/04/2024 How Many Years Have You Smoked Tobacco? 30 Information not available 11/04/2024 Do You Or Have You Ever Used Any Other Forms Of Tobacco Or Nicotine? No Information not available 11/04/2024 Sex: Female Functional Status Question Answer Note LastModified by Organization D etails LastModified Time Are you able to care for yourself? Yes [email or web address] Information n ot available 01/10/2021 Mental Status [...] completed Marcus Hassan MD Attn: Accounting,[address] [place], [address], [facility] 01/13/2020 12:06:15 Past Encounters Encounter ID Performer Location Encounter Start Date Encounter Closed Date Diagnosis/Indication Diagnosis SNOMED-CT Code Diagnosis ICD10 Code Diagnosis Note [id number] [facility] [address] [place] [phone] 06/10/2019 14:17:41 06/12/2019 09:06:00 Nicotine dependence 49249372 F17.200 Urge her to quit smoking. Screening for malignant neoplasm of colon 462276852 Z12.11 Discussed with patient. Adult heal th examination 513973547 Z00.00 Discussed with patient, she agreed. [id number] MD Mejia Calle (Adult Med) [address] [place] [phone] 12/17/2019 12:18:54 12/18/2019 15:29:07 Administration of influenza vaccine 43798510 Z23 [id number] Marcus Hassan MD [facility] (Adult Med) [address] [place] [address] 02/12/2020 10:01:53 02/15/2020 14:43:52 Deep venous thrombosis of lower extremity 709614229 I82.409 Discussed with patient, she agreed to try xarelto under the 340 B program. History of colitis 21509 9006 Z87.19 On antibiotic s as prescribed from hospitalis t from [facility] recently. [id number] Marcus Hassan MD [facility] (Adult Med) [address] [place] [phone] 02/29/2020 13:08:45 03/01/2020 14:00:29 Urinary tract infectious disease 96518165 N39.0 [id number] Marcus Hassan MD [facility] (Adult Med) [address] [place] [phone] 05/05/2020 08:07:05 05/09/2020 18:28:54 Deep venous thrombosis of lower extremity 315408536 I82.409 Discussed with patient, she agreed to try xarelto under the 340 B program. [id number] Camille Babin MD [facility] [address] [place] [address] 01/10/2021 10:03:04 01/13/2021 12:36:22 Trying to give up smoking 524083845 Z72.0 discussed how to use patches effectivel y to quit smoking Screening mammography 24 389915 Z12.31 Persistent insomnia 1919 21476 G47.09 try cutting back and eliminatin g caffeine Hypercholesterolemia 136 65623 E78.00 discussed low fat, low carb diet, and encouraged exercise. [facility] 415218631 Z00.00 Depression screening 171 533489 Z13.31 patient does not appear to be significan tly depressed. [id number] Ramiro keen MD [facility] [address] [place] [address] 10/23/2023 10:22:36 10/28/2023 13:32:56 Dysuria 08547088 R30.0 10/23/23:- experienci ng dysuria for about a month now- has tried azo with no relief- admits to back pain, denies fever- urine dip showed moderate blood, will send for culture- Start macrobid 100mg capsule due to sx and blood on dip- future bladder scan [facility] 463865209 Z00.00 routine labs Decreased hearing 732548 001 H91.93 10/23/23:- states that ears feel like they are clogged up- can make out certain sounds but not the whole thing- states that hearing loss has been present for 3 years now- Denies ear pain or dizzinessP Ex- nlrefer for hearing screen Screening for malignant neoplasm of breast 389229743 Z12.39 due for mammo Mixed urin duy incontinence 465695879 N39.46 10/23/23:- patient states that she has had a leaking of bladder for years now and it has progressiv chuy gotten worse-over active bladder and stress incontinen ce- states that she wears pads and changes them every couple of hours-snee zing, coughing, laughing, picking things up-refer to pelvic PT Screening for malignant neoplasm of colon 039117595 Z12.11 will discuss at f/u visit Rib pain 495449555 R07.8 1 10/23/23:- she noticed the pain [...] density compared to R sideXR ribs Smoker 53781439 F17.200 started smoking age 32, recently cut back to 1/2 ppdwill discuss LDCT scan at f/u visit Depression screening 171 079272 Z13.31 PHQ 0 [id number] Ramiro keen MD [facility] [address] [place] [address] 10/30/2023 10:57:37 10/30/2023 11:51:46 Dysuria 39612683 R30.0 10/30/23: dysuria resolved with macrobid 10/23/23:- experienci ng dysuria for about a month now- has tried azo with no relief- admits to back pain, denies fever- urine dip showed moderate blood, will send for culture- Start macrobid 100mg capsule due to sx and blood on dip- future bladder scan Rib pain 464952863 R07.8 1 10/30/23: XR ribs normal, pain [...] R sideXR ribs Mixed urin duy incontinence 852334321 N39.46 10/30/23: pelvic floor PT scheduled 11/06/23 10/23/23:- patient states that she has had a leaking of bladder for years now and it has progressiv chuy gotten worse-over active bladder and stress incontinen ce- states that she wears pads and changes them every couple of hours-snee zing, coughing, laughing, picking things up-refer to pelvic PT Decreased hearing 147762 001 H91.93 2/14/24: hearing screen scheduled for 11/12/23 10/23/23:- states that ears feel like they are clogged up- can make out certain sounds but not the whole thing- states that hearing loss has been present for 3 years now- Denies ear pain or dizzinessP Ex- nlrefer for hearing screen Screening for malignant neoplasm of breast 844651192 Z12.39 due for mammoAnder son booked until 03/2024, will send to [place] [facility] Screening for malignant neoplasm of colon 614853375 Z12.11 last colonoscop y 2 yrs agotold to repeat yearlywill request records Smoker 12780116 F17.200 started smoking age 89 ppd for 32 yrs, recently cut back to 09/17 ppdtrial nicotine patchesord ered LDCT scan Depression screening 171 199531 Z13.31 PHQ 6attribute s to being a poor sleeper Elevated blood-pressure reading without diagnosis of hypertension 323643440 R03.0 BP 147/84, 140/86prev ious visit BP 136/83advi sed to check BP at home, goal BP <130/80, f/u with BP log in 1 wk [id number] FOUZIA MACK [facility] [address] [place] [address] 11/26/2023 15:30:51 11/26/2023 16:04:06 Rib pain 285751215 R07.81 11/26/23: unable to lay on L [...] density compared to R sideXR ribs Smoker 93526110 F17.200 11/26/23: LDCT scan normal, repeat in 1 yrdown to 2-3 cigs from 09/17 ppd 10/30/23:st arted smoking age 89 ppd for 32 yrs, recently cut back to 09/17 ppdtrial nicotine patchesord ered LDCT scan Screening for malignant neoplasm of colon 284842777 Z12.11 11/26/23: no result from Dr. Beaulieu, refer to GI 10/30/23:ita grewal colonoscop y 2 yrs agotold to repeat yearlywill request records Left upper quadrant pain 346345460 R10.12 PEx- LUQ moderately TTP below L sided ribs, increased density compared to R sideordere d CT abd/pelvis [id number] FOUZIA MACK [facility] [address] [place] [address] 06/24/2024 16:38:41 06/24/2024 17:10:16 Dysuria 52830221 R30.0 06/24/24: frequent urination, dysuria- 4-5 daysurine [...] blood on dip- future bladder scan Diverticulitis 262128852 K57.92 x3 wksLLQ pain, stabbing, worse at [...] pt go to ED Depression screening 171 121394 Z13.31 PHQ 0 [id number] FOUZIA MACK [facility] [address] [place] [address] 11/04/2024 11:49:25 11/04/2024 12:16:53 Hospital inpatient stay within past 30 days 6989249478 106 Z76.89 admitted [facility] in [facility] 09/20/24 to 09/22/24 Pat ient was transferre d from outside hospital ED where she initially presented with left lower quadrant abdominal pain, bright red blood per rectum. Vital signs were stable. CT scan done at outside hospital did show colitis/di verticulos is. Gastroente rology was consulted. Was treated with IV antibiotic s during hospital stay. Status post colonoscop y which did show segmental mucosal ulceration and per GI likely ischemic colitis. Patient tolerated diet well and was hemodynami yaw stable. She was discharged home to complete oral ciprofloxa belem/Flagyl for 7 more days. Patient was advised to follow-up with PCP in a week with repeat CBC check and follow-up with GI no abd pain or blood in stools since discharger efer to GI for f/u Smoker 33120199 F17.200 11/04/24: quit 09/30/24due for repeat LDCT next month 11/26/23: LDCT scan normal, repeat in 1 yrdown to 2-3 cigs from 1/2 ppd 10/30/23:st arted smoking age 89 ppd for 32 yrs, recently cut back to 09/17 ppdtrial nicotine patchesord ered LDCT scan Screening for malignant neoplasm of breast 222817323 Z12.39 scheduled 11/22/24 Adult heal th examination 504310964 Z00.00 due for routine labs Depression screening 171 469148 Z13.31 PHQ 4 Health Concerns Section Related Observation LastModified by Organization Detai ls LastModified Time None Recorded Concern Status LastModified by Organization Details LastModified Time None Recorded Advance Directives Directive None Recorded Payers Encounter Date Sequence Insurance Name Policy Number Policy Brown Covered Member ID Brown Member ID Guarantor Name 10/23/2023 1 [facility] - DOS ON OR AFTER 2020 - DUAL ELIGIBLE (MEDICARE REPLACEMENT/AD VANTAGE - HMO) Bekah Dimas [id number] Bekah Dimas 10/30/2023 1 [facility] - DOS ON OR AFTER 2020 - DUAL ELIGIBLE (MEDICARE REPLACEMENT/AD VANTAGE - HMO) Bekah Dimas [id number] Bekah Dimas 11/26/2023 1 [facility] - DOS ON OR AFTER 21 (MEDICAID REPLACEMENT - HMO) Bekah Dimas [id number] Bekah Dimas 06/24/2024 1 [facility] - DOS ON OR AFTER 21 (MEDICAID REPLACEMENT - HMO) Bekah Valencia Judie [id number] Bekah Ann Judie 11/04/2024 1 [facility] - DOS ON OR AFTER 21 (MEDICAID REPLACEMENT - HMO) Bekah Valencia Judie [id number] Bekah Ann Judie Notes Date Note Type Note Provider Name and Address Organization Details Recorded Time 10/23/2023 text/html Patient is a 62 y/o F, [...] pain or dizziness. Ramiro Mejias MD Attn: Accounting[address] [place], [address], [facility] 10/25/2023 19:28:07 10/30/2023 text/html Pt presents for 1 wk f/u. Reports that dysuria resolved with macrobid. She has upcoming hearing appt and pelvic floor physical therapy. Ramiro Mejias MD Attn: Accounting,[address] [place], [address], [facility] 10/30/2023 16:27:58 11/26/2023 text/html Pt presents for LDCT scan results. States that she has started pelvic floor PT. Reports L sided flank/rib pain has not improved, unable to lay on left side and has difficulty sleeping due to pain. FOUZIA MACK Attn: Accounting,[address] [facility], [place], [address], [facility] 11/26/2023 17:49:57 06/24/2024 text/html Pt presents with diverticulitis pain [...] appetite has been okay. FOUZIA MACK Attn: Accounting,[address] [facility], [place], [address], [facility] 06/28/2024 16:53:40 11/04/2024 text/html Pt presents for hospital f/u. States that 6 wks ago she developed severe stomach pain and blood in her stools. She went to ED and was transferred to hospital in [facility]. Reports that she has felt well since she was discharged home, but has not followed up with GI. Denies fever, chills, chest pain, SOB, n/v/d, abd pain, dizziness, weakness, or headaches. FOUZIA MACK Attn: Accounting,[address] [facility], [place], [address], [facility] 11/04/2024 12:46:04 OBGyn Episode No OBEpisode recorded.
--- OUTSIDE RECORDS SUMMARY | 2024-11-21 10:36 | XMS_ITS | Patient Health Summary ---
Author Organization [facility] Address [address] [facility] [place] [address] Care Team Providers Care General Cleaner Name Role Phone Abhay Otero DO Primary Care Provider [phone] Note from [facility],non-owned Affiliates and Associated Physician Practices is amultiple site organization consisting of ambulatory clinics and hospital sitesin [place], [place], [place] and [place]. This disclosure is being madepursuant to the Care Everywhere program and may not contain all information available regarding this patient. Last updated 18.[facility] Allergies * Meperidine(Swelling) Medications * Be aware that medications may not be up to date on this document. Alwaysverify current medications with the patient. * ciprofloxacin (Cipro) 500 MG tablet(Started 09/22/2024) Take 1 (one) tablet by mouth 2 times daily Active Problems Problem Noted Date Diagnosed Date Lower GI bleed 09/19/2024 Social History Tobacco Use Types Packs/Day Years [...] any time in the past 12 m [facility], were you homeless or living in a jail (including now)? No 09/22/2024 Sex and Gender Information Value Date Recorded Sex Assigned at Not on file Gender Identity Not on file Sexual Orientation Not on file Last Filed Vital Signs Vital Sign Reading Time Taken Comments Blood Pressure 113/58 09/22/2024 11:05 AM [facility] Pulse 68 09/22/2024 11:05 AM [facility] Temperature 36.8 C (98.3 F) 09/22/2024 9:27 AM [facility] Respiratory Rate 19 09/22/2024 11:0 5 AM [facility] Oxygen Saturation 93% 09/22/2024 11: 05 AM [facility] Inhaled Oxygen Concentration - - Weight 53.5 kg (117 lb 14.4 oz) 09/20/2024 2:21 AM [facility] Height 165.1 cm (5' 5 ) 09/20/2024 2:21 AM [facility] Body Mass Index 19.62 09/20/2024 2:21 AM [facility] Procedures * CARDIAC RHYTHM STRIP ORDER(Performed 09/23/2024) * PATHOLOGY TISSUE EXAM (STL)(Performed 09/22/2024) Performed for Diagnosis deferred * MS COLONOSCOPY, DIAGNOSTIC(Performed 09/22/2024) * ENDOSCOPY, COLON, DIAGNOSTIC(Performed 09/22/2024) * HEMOGLOBIN A1C(Performed 09/21/2024) * BASIC METABOLIC PANEL (CALCIUM TOTAL)(Performed 09/21/2024) * CBC W/O DIFFERENTIAL(Performed 09/21/2024) * BASIC METABOLIC PANEL (CALCIUM TOTAL)(Performed 09/20/2024) * CBC W/O DIFFERENTIAL(Performed 09/20/2024) Results * CARDIAC RHYTHM STRIP ORDER (09/23/2024 6:43 PM [facility]) Narrative 09/23/2024 6:43 PM [facility] Ordered by an unspecified provider. Scanned Document CARDIAC SERVICES ORD ERABLES * PATHOLOGY TISSUE EXAM (STL) (09/22/2024 10:46 AM [facility]) Case Report Surgical Pathology Report Case: [id number] Authorizing Provider: Corina Tilley MD Collected: 09/22/2024 10:46 AM Ordering Location: [address] Med Received: 09/22/2024 01:10 PM Pathologist: Sirena Thomas MD Specimen: Colon Descending Biopsy, possible colitis 09/24/2024 1:45 PM [facility] Final Diagnosis Descending colon, biopsy: -- Colonic mucosa with acute inflammation -- No dysplasia or malignancy 09/24/2024 1:45 PM [facility] Gross Description The specimen is received in a formalin-filled container labeled with the patient s name, Judie, Bekah A., and descending colon and consists of multiple duarte tissue fragments (1.5 x 0.3 x 0.2 cm in aggregate). Entirely submitted in cassette A1. AMA/na 09/24/2024 1:45 PM [facility] Microscopic Description Histologic sections show fragments of colonic mucosa with acute cryptitis, reactive epithelial changes in the crypts, surface epithelial mucin depletion, red blood cell extravasation, and largely preserved crypt architecture. There is focal possible crypt atrophy. Features of chronic injury are not identified. The differential includes infection, medication-related injury, and ischemia. 09/24/2024 1:45 PM [facility] Disclaimer All histochemical and/or immunohistochemical results are interpreted with controls that demonstrate appropriate staining reactions before reporting results. Note on use of immunocytochemistry reagents: This test was developed and its performance characteristic determined by [facility], Department of Laboratory Medicine. It has not [...] be interpreted with caution. 09/24/2024 1:45 PM [facility] Embedded Images 09/24/2024 1:45 PM [facility] Pathology/Cytolo gy COLONIC BIOPSY SPECIMEN / Unknown 09/22/2024 10:46 AM [facility] 09/22/2024 1:10 PM [facility] Corina Tilley MD LAB - PATHOLOGY/CYTO LOGY ORDERABLES [facility] [address] [place] [id number] * ENDOSCOPY, COLON, DIAGNOSTIC (09/22/2024 6:41 AM [facility]) Report Endoscopy POC _ Patient Name: Bekah Dimas Procedure Date: 09/22/2024 6:41 AM Date of : 1960 Admit Type: Inpatient Age: 63 Gender: Female Attending MD: Corina Tilley MD, [id number] _ Procedure: Colonoscopy Indications: Abdominal pain in the left lower quadrant with bloody stool, Abnormal CT of the left colon Providers: Corina Tilley MD (Doctor) Referring MD: Abhay Otero (Referring MD) Medicines: Monitored Anesthesia Care Complications: [...] surveillence protocol Procedure Code(s): --- Professional --- 53845, 52, Colonoscopy, flexible; with biopsy, single or multiple --- Technical --- 83435, 52, Colonoscopy, flexible; with biopsy, single or [...] parts of digestive tract CPT copyright 2020 [employer]. All rights reserved. The codes documented in this report are preliminary and upon solar field installation crew member review may be revised to meet current compliance requirements. Dr. Corina Tilley MD __ Corina Tilley MD 09/22/2024 10:50:15 AM This report has been signed electronically. Number of Addenda: 0 Note Initiated On: 09/22/2024 6:41 AM [facility] 09/22/2024 6:41 AM [facility] Corina Tilley MD GI PROCEDURE ORDERAB LES [facility] [place] [address] * HEMOGLOBIN A1C (09/21/2024 2:01 AM [facility]) Hemoglobin A1c 5.5 <5.7 % 09/21/2024 2:15 AM [facility] Estimated Average Glucose 111 mg/dL 09/21/2024 2:15 AM [facility] Blood BLOOD SPECIMEN / Unknown Venipuncture / Unknown 09/21/2024 2:01 AM [facility] 09/21/2024 2:06 AM [facility] Narrative [facility] - 09/21/2024 2:15 AM [facility] HbA1c Interpretation: Normal: < 5.7% Pre-diabetes: 5.7-6.4% [...] (HbF) exceeds 5% in the specimen. The [place]le Alinity assay for the measurement of HbA1c is a National Glycohemoglobin Standardization Program (NGSP) certified method. Enoch Devine MD LAB - CHEMISTRY MI [facility] [address] [place] [address] * (ABNORMAL) CBC W/O DIFFERENTIAL (09/21/2024 2:01 AM [facility]) Only the most recent of2 resultswithin the time period is included. Pathologist [facility] WBC 11.5(H) 4.0 - 10.7 x10E9/L 09/21/2024 2:08 AM [facility] RBC Count 4.32 3.90 - 5.20 x10E12/L 09/21/2024 2:08 AM [facility] Hemoglobin 12.9 11.9 - 15.8 g/dL 09/21/2024 2:08 AM [facility] Hematocrit 39.0 34.8 - 46.1 % 09/21/2024 2:08 AM [facility] MCV 90.3 80.0 - 98.0 fL 09/21/2024 2:08 AM [facility] MCH 29.9 26.7 - 33.6 pg 09/21/2024 2:08 AM [facility] MCHC 33.1 31.7 - 36.3 g/dL 09/21/2024 2:08 AM [facility] RDW-CV 12.8 11.3 - 14.8 % 09/21/2024 2:08 AM [facility] Platelet Count 210 150 - 420 x10E9/L 09/21/2024 2:08 AM [facility] MPV 10.5 7.8 - 11.4 fL 09/21/2024 2:08 AM [facility] Blood BLOOD SPECIMEN / Unknown Venipuncture / Unknown 09/21/2024 2:01 AM [facility] 09/21/2024 2:06 AM [facility] Enoch Devine MD LAB - HEMATOLOGY ORD ERABLES [facility] [address] [place] [address] * (ABNORMAL) BASIC METABOLIC PANEL (CALCIUM TOTAL) (09/21/2024 2:01 AM [facility]) Only the most recent of2 resultswithin the time period is included. Glucose 95 70 - 99 mg/dL 09/21/2024 2:22 AM [facility] Sodium 141 136 - 145 mmol/L 09/21/2024 2:22 AM [facility] Potassium 3.7 3.5 - 5.1 mmol/L 09/21/2024 2:22 AM [facility] Chloride 110(H) 98 - 107 mmol/L 09/21/2024 2:22 AM [facility] CO2 22 22 - 29 mmol/L 09/21/2024 2:22 AM [facility] Calcium 9.1 8.4 - 10.4 mg/dL 09/21/2024 2:22 AM [facility] Anion Gap 9 6 - 16 mmol/L 09/21/2024 2:22 AM [facility] BUN 7 7 - 26 mg/dL 09/21/2024 2:22 AM [facility] Creatinine 0.71 0.57 - 1.11 mg/dL 09/21/2024 2:22 AM [facility] eGFR by CKD-EPI >90 >=90 mL/min/1.7 3 m2 09/21/2024 2:22 AM [facility] Blood BLOOD SPECIMEN / Unknown Venipuncture / Unknown 09/21/2024 2:01 AM [facility] 09/21/2024 2:06 AM [facility] Enoch Devine MD LAB - CHEMISTRY MI [facility] Organization Address City/State/[facility] Co de Phone Number [facility] [address] [place] [address] Care Teams General Cleaner Relationship Specialty Start Date End Date Abhay Otero DO [address] [place], [place] [id number] PCP - General 08/02/22
--- OUTSIDE RECORDS SUMMARY | 2024-11-21 10:36 | XMS_ITS | Referral Summary ---
Author Organization [facility] Address [address] [place] [address] Care Team Providers Care Room Service Supervisor Name Role Phone Abhay Otero DO Primary Care Provider [phone] Source Comments [facility],non-owned Affiliates and Associated Physician Practices is amultiple site organization consisting of ambulatory clinics and hospital sitesin [place], [place], [place] and [place]. This disclosure is being madepursuant to the Care Everywhere program and may not contain all information available regarding this patient. Last updated 18.[facility] Encounters Date Type Department Care Team Description 09/22/2024 10:23 AM [facility] Anesthesia Event [facility] [address] [place] [address] Tien Marrufo MD Santiago, Michelle C, MD 09/22/2024 10:30 AM [facility] [employer] SPECIALIST - 09/22/2024 11:00 AM [facility] [employer]IST Surgery [facility] [address] [place] [address] Corina Tilley MD COLONOSCOPY SCREEN 09/20/2024 2:11 AM [facility] [employer]IST - 09/22/2024 2:09 PM [facility] [employer] SPECIALIST Hospital Encounter [facility] General Med [address] [place] [id number] Datar, MD Sybil Ferguson Yang, MD Nallapaneni, Naga Neelima, MD Hospitalist Discharge Disposition: Home or Self Care 09/20/2024 Travel from Last 3 Months Allergies Active Allergy Reactions Criticality Noted Date [...] Date Diagnosed Date Lower GI bleed 09/19/2024 Immunizations Name Administration Dates Next Due INFLUENZA [...] any time in the past 12 m [facility], were you homeless or living in a usp (including now)? No 09/22/2024 Sex and Gender Information Value Date Recorded Sex Assigned at Not on file Gender Identity Not on file Sexual Orientation Not on file Last Filed Vital Signs Vital Sign Reading Time Taken Comments Blood Pressure 113/58 09/22/2024 11:05 AM [facility] [facility] Pulse 68 09/22/2024 11:05 AM [facility] [employer]IST Temperature 36.8 C (98.3 F) 09/22/2024 9:27 AM [facility] [employer]IST Respiratory Rate 19 09/22/2024 11:0 5 AM [facility] [employer]IST Oxygen Saturation 93% 09/22/2024 11: 05 AM [facility] [employer]IST Inhaled Oxygen Concentration - - Weight 53.5 kg (117 lb 14.4 oz) 09/20/2024 2:21 AM [facility] [employer] Height 165.1 cm (5' 5 ) 09/20/2024 2:21 AM [facility] [employer]IST Body Mass Index 19.62 09/20/2024 2:21 AM [facility] [employer] SPECIALIST Functional Status Functional Status Response Date of Assess ment Is person deaf or have serious hearing difficult y? No 09/20/2024 Is person blind or have serious difficulty seein g? No 09/20/2024 Does person have serious dif ficulty walking/climbing stairs? No 09/20/2024 Does person have difficulty dressing/bathing? No 09/20/2024 Does person have difficulty doing errands alone? No 09/20/2024 Cognitive Status Response Date of Assessm ent Does person have difficulty concentrating/remembering/making decisions? No 09/20/2024 Plan of Treatment Not on file Procedures Procedure Name Priority Date/Time Associated Diagnosis Comments CARDIAC RHYTHM STRIP ORDER 09/23/2024 6:43 PM [facility] [employer]IST PATHOLOGY TISSUE EXAM (STL) Routine 09/22/2024 10:46 AM [employer] [employer] SPECIALIST Diagnosis deferred [place] COLONOSCOPY, DIAGNOSTIC 09/22/2024 10:30 AM [facility] [employer]IST ENDOSCOPY, COLON, DIAGNOSTIC Routine 09/22/2024 6:41 AM [facility] [employer] SPECIALIST HEMOGLOBIN A1C Routine 09/21/2024 2:01 AM [employer] [employer] SPECIALIST BASIC METABOLIC PANEL (CALCIUM TOTAL) AM Draw 09/21/2024 2:01 AM [facility] [employer]ATE SPECIALIST CBC W/O DIFFERENTIAL AM Draw 09/21/2024 2:01 AM [employer] SPECIALIST BASIC METABOLIC PANEL (CALCIUM TOTAL) Routine 09/20/2024 2:45 AM [facility] [employer] SPECIALIST CBC W/O DIFFERENTIAL Routine 09/20/2024 2:45 AM F[employer] RATE SPECIALIST from Last 3 Months Results * CARDIAC RHYTHM STRIP ORDER (09/23/2024 6:43 PM [facility] [employer] SPECIALIST) Narrative 09/23/2024 6:43 PM [facility] [employer]IST Ordered by an unspecified provider. Scanned Document CARDIAC SERVICES ORD ERABLES * PATHOLOGY TISSUE EXAM (STL) (09/22/2024 10:46 AM F[facility] [employer] SPECIALIST) Case Report Surgical Pathology Report Case: [id number] Authorizing Provider: Corina Tilley MD Collected: 09/22/2024 10:46 AM Ordering Location: [address] Med Received: 09/22/2024 01:10 PM Pathologist: Sirena Thomas MD Specimen: Colon Descending Biopsy, possible colitis 09/24/2024 1:45 PM [facility] Final Diagnosis Descending colon, biopsy: -- Colonic mucosa with acute inflammation -- No dysplasia or malignancy 09/24/2024 1:45 PM [facility] [employer]ATE SPECIALIST [facility] Gross Description The specimen is received in a formalin-filled container labeled with the patient s name, Judie, Bekah A., and descending colon and consists of multiple duarte tissue fragments (1.5 x 0.3 x 0.2 cm in aggregate). Entirely submitted in cassette A1. AMA/na 09/24/2024 1:45 PM [facility] Microscopic Description Histologic sections show fragments of colonic mucosa with acute cryptitis, reactive epithelial changes in the crypts, surface epithelial mucin depletion, red blood cell extravasation, and largely preserved crypt architecture. There is focal possible crypt atrophy. Features of chronic injury are not identified. The differential includes infection, medication-related injury, and ischemia. 09/24/2024 1:45 PM [facility] [employer] SPECIALIST [facility] Disclaimer All histochemical and/or immunohistochemical results [...] be interpreted with caution. 09/24/2024 1:45 PM [facility] [employer]ATE SPECIALIST [facility] Embedded Images 09/24/2024 1:45 PM [employer]ATE SPECIALIST [facility] Pathology/Cytolo gy COLONIC BIOPSY SPECIMEN / Unknown 09/22/2024 10:46 AM [facility] [employer] SPECIALIST 09/22/2024 1:10 PM [employer] [employer] SPECIALIST Corina Tilley MD LAB - PATHOLOGY/CYTO LOGY ORDERABLES [facility] [address] [place] [address] * ENDOSCOPY, COLON, DIAGNOSTIC (09/22/2024 6:41 AM [facility] [employer] SPECIALIST) Report Endoscopy POC _ Patient Name: Bekah Dimas Procedure Date: 09/22/2024 6:41 AM Date of : 1960 Admit Type: Inpatient Age: 63 Gender: Female Attending MD: Corina Tilley MD, [id number] _ Procedure: Colonoscopy Indications: Abdominal pain in [...] surveillence protocol Procedure Code(s): --- Professional --- 55948, 52, Colonoscopy, flexible; with biopsy, single or multiple --- Technical --- 63354, 52, Colonoscopy, flexible; with biopsy, single or [...] parts of digestive tract CPT copyright 2020 [employer]. All rights reserved. The codes documented in this report are preliminary and upon business planning manager review may be revised to meet current compliance requirements. Dr. Corina Tilley MD __ Corina Tilley MD 09/22/2024 10:50:15 AM This report has been signed electronically. Number of Addenda: 0 Note Initiated On: 09/22/2024 6:41 AM [facility] 09/22/2024 6:41 AM [facility] [employer] SPECIALIST Corina Tilley MD GI PROCEDURE ORDERAB LES [facility] [place] [address] * HEMOGLOBIN A1C (09/21/2024 2:01 AM [facility] [employer]IST) Hemoglobin A1c 5.5 <5.7 % 09/21/2024 2:15 AM [employer]ATE SPECIALIST [facility] Estimated Average Glucose 111 mg/dL 09/21/2024 2:15 AM [employer]ATE SPECIALIST [facility] Blood BLOOD SPECIMEN / Unknown Venipuncture / Unknown 09/21/2024 2:01 AM [facility] [employer] SPECIALIST 09/21/2024 2:06 AM [facility] [employer]ATE SPECIALIST Narrative [facility] - 09/21/2024 2:15 AM [facility] [employer] SPECIALIST HbA1c Interpretation: Normal: < 5.7% Pre-diabetes: 5.7-6.4% [...] method. Enoch Devine MD LAB - CHEMISTRY ORDE CE Performing Organization Address [facility]/ZIP Co de Phone Number [facility] [address] [place] [address] * (ABNORMAL) CBC W/O DIFFERENTIAL (09/21/2024 2:01 AM [facility] [employer]IST) Only the most recent of2 resultswithin the time period is included. WBC 11.5(H) 4.0 - 10.7 x10E9/L 09/21/2024 2:08 AM [facility] RBC Count 4.32 3.90 - 5.20 x10E12/L 09/21/2024 2:08 AM [facility] Hemoglobin 12.9 11.9 - 15.8 g/dL 09/21/2024 2:08 AM [facility] Hematocrit 39.0 34.8 - 46.1 % 09/21/2024 2:08 AM [facility] MCV 90.3 80.0 - 98.0 fL 09/21/2024 2:08 AM [facility] MCH 29.9 26.7 - 33.6 pg 09/21/2024 2:08 AM [facility] MCHC 33.1 31.7 - 36.3 g/dL 09/21/2024 2:08 AM [facility] RDW-CV 12.8 11.3 - 14.8 % 09/21/2024 2:08 AM [facility] Platelet Count 210 150 - 420 x10E9/L 09/21/2024 2:08 AM [facility] MPV 10.5 7.8 - 11.4 fL 09/21/2024 2:08 AM [facility] Blood BLOOD SPECIMEN / Unknown Venipuncture / Unknown 09/21/2024 2:01 AM F[employer] [employer] SPECIALIST 09/21/2024 2:06 AM [facility] Enoch Devine MD LAB - HEMATOLOGY ORD ERABLES [facility] [address] [place] [address] * (ABNORMAL) BASIC METABOLIC PANEL (CALCIUM TOTAL) (09/21/2024 2:01 AM [facility]) Only the most recent of2 resultswithin the time period is included. Pathologist [facility] Glucose 95 70 - 99 mg/dL 09/21/2024 2:22 AM [facility] Sodium 141 136 - 145 mmol/L 09/21/2024 2:22 AM F[employer] [employer]ATE SPECIALIST [facility] Potassium 3.7 3.5 - 5.1 mmol/L 09/21/2024 2:22 AM F[employer]ATE SPECIALIST [facility] Chloride 110(H) 98 - 107 mmol/L 09/21/2024 2:22 AM [facility] CO2 22 22 - 29 mmol/L 09/21/2024 2:22 AM F[employer] [employer]ATE SPECIALIST [facility] Calcium 9.1 8.4 - 10.4 mg/dL 09/21/2024 2:22 AM F[employer]ATE SPECIALIST [facility] Anion Gap 9 6 - 16 mmol/L 09/21/2024 2:22 AM F[employer] [employer]ATE SPECIALIST [facility] BUN 7 7 - 26 mg/dL 09/21/2024 2:22 AM F[employer] RATE SPECIALIST [facility] Creatinine 0.71 0.57 - 1.11 mg/dL 09/21/2024 2:22 AM [facility] eGFR by CKD-EPI >90 >=90 mL/min/1.7 3 m2 09/21/2024 2:22 AM F[employer] [employer]ATE SPECIALIST [facility] Blood BLOOD SPECIMEN / Unknown Venipuncture / Unknown 09/21/2024 2:01 AM F[employer] [employer]ATE SPECIALIST 09/21/2024 2:06 AM [facility] [employer]ATE SPECIALIST Enoch Devine MD LAB - CHEMISTRY MI [facility] Organization Address City/State/[facility] Co de Phone Number [facility] [address] [place] [address] from Last 3 Months Advance Directives * Full Code (Latest Code Status on File) Date Activated Date Inactivated Comments 09/20/2024 2:24 AM 09/22/2024 3:10 PM Care Teams Room Service Supervisor Relationship Specialty Start Date End Date Abhay Otero DO [address] [place], [place] [id number] PCP - General 08/02/22
--- OUTSIDE RECORDS SUMMARY | 2024-11-21 10:36 | XMS_ITS | Continuity of Care Document ---
Author Organization [facility] Address [address] [place] [address] Phone Care Team Providers Care Building Dismantler Name Role Phone Corina Tilley MD Unavailable Unavailable Procedures Procedure Date INPATIENT CONSULT, LEVEL 4 COLONOSCOPY AND BIOPSY Advance Directives Directive Yes / No Effective Date File Name No Information Encounters Encounter Description Practice Location Reason(s) For Visit Diagnoses Date Provider Providers Copied on Encounter [facility], [address], [place], [place], [id number], tel:[phone] [facility] No Information 5 Treva Arriaga. [address] [place] [address], [id number] , [place]. tel: [phone] INPATIENT CONSULT, LEVEL 4 [facility], [address], [place], [place], [id number], tel:[phone] [facility] No Information 5 Treva Arriaga. [address], [place], [id number] , [place]. tel: [phone] Referring Provider: Abhay Otero, [address], [place], [address]. tel:[phone] Family History Family Member Type Diagnosis Age At Onset No Information Payers Payer name Insurance type Covered libertarian ID Authoriza tion(s) No Information Social History Type Description Quantity Date Captured Comments Sex Female Smoking Status No Information Chief Complaint And Reason For Visit No Information Reason For Referral Reason For Referral No Information History Of Present Illness Encounter Date Complaint History Of Prese nt Illness No Information Functional Status Date Functional Assessmen t No Information Instructions Date Instruction Additional Infor mation No Information Assessments Type Assessment Date No Information Patient Care Teams Name Effective Dates (start - stop) Status Members No Information
== END 2024-11-21 10:32 | disposition home or self-care (01) ==
LOC: ANHIMG 10:33
PROVIDERS: PCP Physician Assistant; Visit Provider Physician Assistant
DX: Z12.31 Encounter for screening mammogram for malignant neoplasm of breast (principal)
CPT/HCPCS: 77063; 77067